=== PATIENT | male | born 1975 | race African-American/Black ===

== ENCOUNTER 2024-03-24 07:58 | Emergency (ER) | payer MEDICARE, SELFPAY ==
--- NOTE | ~2024-03-24 | XR_ITS ---
XR knee LT min 4V Ordering provider: Jo Ann Robles MD History: . SWELLING HX OF EFFUSION, SURG 20 YRS AGO . Comparison: None. FINDINGS: BONES: No acute fracture or dislocation. Postoperative changes seen in the fibula. JOINT SPACES: Narrowing of the lateral compartment. SOFT TISSUES: Normal. IMPRESSION: No acute osseous abnormality left knee. Severe osteoarthritic changes. Reviewed, dictated and finalized at location A.
--- NOTE | ~2024-03-24 | CT_ITS ---
CT lumbar spine w con Ordering provider: Edwar Xiao APRN History: 49 years Male with . low back pain, questionable hx of epidural abscess . Comparison: None. Technique: CT lumbar spine without contrast. Automated exposure control and iterative reconstruction technique were employed. The dose-length product was 181.47 mGy-cm. FINDINGS: VERTEBRAE: Normal height and alignment. No subluxation or visible acute fracture. Degenerative change s of the spine. DISC SPACES: Narrowing of the disc L4-L5 and L5-S1. Multilevel facet joint disease. T12-L1: No stenosis. L1-L2: No stenosis. Mild diffuse disc bulge. L2-L3: No stenosis. Mild diffuse disc bulge. L3-L4: No stenosis. Mild diffuse disc bulge. L4-L5: No stenosis. Mild diffuse disc bulge. Left nerve root compression seen. L5-S1: No stenosis. Mild diffuse disc bulge. Bilateral narrowing of the foramina with nerve root com pression. PARASPINOUS SOFT TISSUES: Mild atheromatous disease of the abdominal aorta. fusion the right sacroiliac joint. IMPRESSION: Multilevel degenerative disc disease. No evidence of epidural abscess seen. If still concerned contrast MRI is advised. Reviewed, dictated and finalized at location A. IMPRESSION: Multilevel degenerative disc disease. No evidence of epidural abscess seen. If still concerned contrast MRI is advise dmitriy
[2024-03-24 08:01] VITALS: BP 136/90; PULSE 92; RESP 16; TEMP 36.8; O2SAT 100
--- NOTE | 2024-03-24 09:05 | ED.EXTPRO ---
HPI - Extremity Problem General Chief complaint: Extremity Problem,Nontraumatic Stated complaint: L KNEE SWELLING Time Seen by Provider: 03/24/24 08:52 History of Present Illness HPI Narrative: 49-year-old male presents to the emergency room for evaluation of multiple medical complaints. Patient has been complaining of atraumatic left knee pain for over 1 month. Patient states that there is fluid on his knee and he is requesting it to be drained. States the knee was drained at an outside emergency room over 1 month ago. Patient is also complaining of a infection in my lower back . Reports having back pain for over 1 year after a fall off of a building.States a Dr. Cooper from [facility] performed an unknown surgery on his lower back, and a sub subsequently had a biopsy of that infection. Patient states both procedures were performed over 1 year ago and cannot provide any more specifics. Patient states his fever is 135/85. Patient denies IV drug use. Denies saddle anesthesia. Denies urological deficits or changes. Denies lower extremity weakness. Related Data Home Medications Medication Instructions Recorded Confirmed albuterol sulfate 90 mcg/actuation 1 puff inhalation Q4H PRN 01/27/20 aerosol inhaler elviteg 150 mg-cob 150 mg-emtricit 1 tablet PO DAILY 01/27/20 200 mg-tenofo disopro 300 mg tablet (Stribild) hydrochlorothiazide 25 mg tablet 25 mg PO DAILY 01/27/20 hydrocodone 5 mg-acetaminophen 325 1 tablet PO Q6H PRN 01/27/20 mg tablet naproxen 500 mg tablet 500 mg PO BID 01/27/20 prednisone 20 mg tablet 20 mg PO BID 01/27/20 ranitidine HCl 150 mg capsule mg PO DAILY 01/27/20 trazodone 50 mg tablet 25 mg PO DAILY 01/27/20 Allergies Allergy/AdvReac Type Severity Reaction Status Date / Time No Known Allergies Allergy Verified 03/24/24 08:05 Review of Systems Review of Systems: ROS unremarkable except for noted in HPI PMFSH Past Medical History Medical History (Updated 03/24/24 @ 10:55 by Edwar Xiao APRN) Acid reflux Anxiety Asthma Back injury Depression History of HIV infection History of hyperlipidemia History of hypertension Right hand pain Surgical History Surgical History History of ear surgery Exam Narrative: GENERAL: Well-appearing, well-nourished, no physical limitations, and in no acute distress. HEAD: Normocephalic, atraumatic. EYES: Conjunctivae normal, PERRLA and EOMI. CHEST: Clear to auscultation. No respiratory distress. No wheezes rales or rhonchi. HEART: Regular rate and rhythm. No murmur heard. Normal peripheral pulses. ABDOMEN: Soft, nontender, nondistended, normal active bowel sounds. BACK: No cervical/thoracic/lumbar tenderness, step-offs, bony abnormality; FROM. no erythema. EXTREMITIES: Normal range of motion. No edema. No clubbing or cyanosis. Left knee: no edema or effusion. Full range of motion. No joint laxity. No bony tenderness. Neuromuscular is intact distally SKIN: Warm, dry, no rash. No noted wounds NEURO: No focal deficits. Alert and oriented x3. MAEW. CN's II-XI intact bilaterally, normal gait PSYCH: Cooperative. Normal mood and affect. Course Vital Signs Vital signs: Vital Signs Temperature 36.8 C 03/24/24 08:01 Pulse Rate 92 03/24/24 08:01 Respiratory Rate 16 03/24/24 08:01 Blood Pressure 136/90 03/24/24 08:01 Pulse Oximetry 100 03/24/24 08:01 Oxygen Delivery Room Air 03/24/24 08:01 Temperature 36.8 C 03/24/24 08:01 Pulse Rate 80 03/24/24 09:33 Respiratory Rate 15 03/24/24 09:33 Blood Pressure 123/84 03/24/24 09:33 Pulse Oximetry 100 03/24/24 09:33 Oxygen Delivery Room Air 03/24/24 08:01 MDM - Extremity (Nontraumatic) MDM Narrative Medical decision making narrative: 49-year-old male presents to the emergency room for evaluation of multiple medical complaints. Patient had com
[2024-03-24] MEDS: SODIUM CHLORIDE 0.9% IV 1,000 ML 999 ML IV CONT (09:30)
[2024-03-24] MEDS: KETOROLAC 30 MG/ML VIAL (*BKC) IV PUSH (09:31)
[2024-03-24 09:33] VITALS: BP 123/84; PULSE 80; RESP 15; O2SAT 100
[2024-03-24 09:41] LABS: Basophils Percent Auto 0.4 % (0.2-1.2); Eosinophils Absolute Auto 0.1 K/mm3 (0-0.3); Eosinophils Percent Auto 2.7 % (0-4.4); Hematocrit 36.5 % (42.0-52.0); Hemoglobin 11.4 g/dL (14.0-18.0); Immature Granulocyte Absolute 0.03 K/mm3 (0.00-0.031); Immature Granulocyte Percent A 0.7 % (0-0.5); Lymphocytes Absolute Auto 1.18 K/mm3 (0.9-3.2); Lymphocytes Percent Auto 26.5 % (18.3-44.2); Mean Corpuscular HGB Conc 31.2 g/dl (32-36); Mean Corpuscular Hemoglobin 24.5 pg (26-34); Mean Corpuscular Volume 78.3 fl (80-100); Monocytes Absolute Auto 0.6 K/mm3 (0.1-0.6); Monocytes Percent Auto 14.1 % (2.6-8.5); Neutrophils Absolute Auto 2.5 K/mm3 (1.3-6.7); Neutrophils Percent Auto 55.6 % (45.5-73.1); Platelet Count Result 268 k/mm3 (150-375); Red Blood Count 4.66 M/mm3 (4.6-6.20); Red Cell Distribution Width 16.7 % (11.5-14.5); White Blood Count 4.5 K/mm3 (4.5-10.0)
[2024-03-24 09:42] LABS: Lactic Acid Reflex 1.2 mmol/L (0.7-2.0)
[2024-03-24 09:43] LABS: Alanine Aminotransferase 76 U/L (6-50); Alkaline Phosphatase 88 U/L (38-126); Anion Gap 6 mmol/L (4-12); Aspartate Amino Transferase 55 U/L (17-59); Bilirubin,Total 0.3 mg/dL (0.2-1.3); Blood Urea Nitrogen 10 mg/dL (9-20); Calcium 9.1 mg/dL (8.4-10.2); Carbon Dioxide 24 mmol/L (22-30); Chloride 105 mmol/L (98-107); Estimated CRCL calculation 96 ml/min; Estimated Glomerular Filt Rate > 60; Glucose 88 mg/dL (65-110); Potassium 4.5 mmol/L (3.4-5.0); Sodium 135 mmol/L (137-145)
[2024-03-24 10:13] LABS: Estimated CRCL calculation 96 ml/min; Estimated Glomerular Filt Rate > 60
[2024-03-24 10:53] VITALS: BP 118/89; PULSE 81; RESP 16; O2SAT 100
--- NOTE | 2024-03-24 11:42 | PC.NURSE ---
Called [facility] for a ride for pt.
== END 2024-03-24 11:16 | disposition home or self-care (01) ==
PROVIDERS: Emergency Provider Nurse Practitioner Family
DX: M25.562 Pain in left knee (principal); M54.50 Low back pain, unspecified; J45.909 Unspecified asthma, uncomplicated; E78.5 Hyperlipidemia, unspecified; K21.9 Gastro-esophageal reflux disease without esophagitis; Z21 Asymptomatic human immunodeficiency virus [HIV] infection status; Z79.899 Other long term (current) drug therapy; M51.36 Other intervertebral disc degeneration, lumbar region
CPT/HCPCS: 36415; 72132; 73564; 80053; 83605; 85025; 96361; 96374; 99284; J1885; J7030; Q9967

== ENCOUNTER 2024-11-18 08:44 | Emergency (ER) | payer MEDICARE, SELFPAY ==
--- NOTE | ~2024-11-18 | CT_ITS ---
CLINICAL INDICATION: Right flank pain COMPARISON: None. TECHNIQUE: Multiple contiguous axial images of the abdomen and pelvis were performed without the admi nistration of intravenous contrast The dose-length product (DLP) was 266.34 mGy-cm. Automated exposure control and iterative reconstruction technique were employed. FINDINGS/OBSERVATIONS: Visualized lower thorax: The bilateral lung bases are clear. The heart is of normal size, without pericardial effusion. Small hiatal hernia is present. Liver: The liver demonstrates homogeneous attenuation and is not enlarged. Gallbladder and biliary system: The gallbladder is only minimally distended, and otherwise unremarkable. Pancreas: Limited evaluation of the pancreas secondary to the lack of intravenous contrast. Spleen: The spleen demonstrates homogeneous attenuation and is not enlarged. Kidneys: The bilateral kidneys are unremarkable, without hydronephrosis or renal calculi. Adrenal glands: Unremarkable. Gastrointestinal tract: Retained gastric contents within the stomach Significant fecal stasis within the colon. Appendix: The air-filled appendix is of normal caliber (coronal series, images 50 through 56). Vasculature: Unremarkable. Lymph nodes: Limited evaluation without intravenous contrast. Pelvic structures: The bladder is decompressed and demonstrates markedly thickened pride for which cystitis is suspected . The prostate gland is not enlarged. Body wall and musculoskeletal: Trace degenerative disease within the lower thoracic or lumbosacral spine, primarily at the level of L5/S1. IMPRESSION: Significant fecal stasis within the colon. No obstructive uropathy. Normal appendix. Reviewed, dictated and finalized at location A.
[2024-11-18 08:53] VITALS: BP 113/94; PULSE 98; RESP 18; TEMP 36.3; O2SAT 100
--- OUTSIDE RECORDS SUMMARY | 2024-11-18 09:03 | XMS_ITS | Clinical Summary ---
Author Organization 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 Name Role Phone Unavailable Primary Care Provider Unavailabl e Social History Tobacco Use Types Packs/Day Years Used Date Smoking Tobacco: Never Assessed Sex and Gender Information Value Date Recorded Sex Assigned at Not on file Legal Sex Male 4:45 PM CDT Gender Identity Not on file Sexual Orientation Not on file Plan of Treatment Health Maintenance Due Date Last Done Comments Colorectal Cancer Screening Colonoscopy (10 Years) 1973 Annual Physical 01/02/1976 Hepatitis C 1991 DTaP, Tdap and Td Vaccines ( 1 - Tdap) 01/02/1992 Hepatitis B Vaccines (1 of 3 - 19+ 3-dose series) 01/02/1992 Zoster Vaccines (1 of 2) 2023 COVID-19 Vaccine (1 - 2023-2 5 season) 2024 Meningococcal B Vaccine Aged Out No l onger eligible based on patient's age to complete this topic Meningococcal Vaccine Aged Out No luis sukhi eligible based on patient's age to complete this topic Pneumococcal Vaccine: Pediat rics (0 to 5 Years) and At-Risk Patients (6 to 49 Years) Aged Out No longer eligible b ased on patient's age to complete this topic RSV Immunizations Under 20 Months Aged Out No longer eligible based on patient's age to complete this topic
--- OUTSIDE RECORDS SUMMARY | 2024-11-18 09:03 | XMS_ITS ---
Author Organization Formerly [facility] Address [address] [place] [address] Care Team Providers Care Information Systems Planner Name Role Phone Yue Solis Primary Care Provider [phone] Winter Kwan Unavailable [phone] Allergies Allergen (clinical drug ingredient) Drug/Non Drug Allergy documented on EMR Reaction Allergy Type Onset Date Status No Known Drug Allergy Unknown Drug Allergy Active No Known Food Allergy Unknown Drug Allergy Active Results Component Value Reference Range Notes 12 Panel Urine Drug Screen Reviewed date:11/12/2024 04:00:17 PM Interpretation: Performing Lab: Notes/Report: THC Pos HENRIQUE Neg MOP (OPI) Neg AMP Neg MET Neg BAR Neg BZO Neg MDMA Neg MTD Neg OXY Neg PCP Neg BUP Neg REASON FOR VISIT new patient Medications Medication SIG (Take, Route, Frequency, Duration) Notes Start Date End Date Status [place] Carbonate 300 MG 1 capsule Orall y Twice a day for 30 days Active Stribild [phone] MG 1 tablet Orally Once a day for 30 days Active Lidocaine 5 % 1 patch remove after 12 hours Externally Once a day for 30 days As needed BACK PAIN 03/23/2024 Active Losartan Potassium 50 MG 1 tablet Orally Once a day for 30 days Active amLODIPine Besylate 5 MG 1 tablet Orally Once a day for 30 days Active ARIPiprazole 5 MG 1 tablet Orally once daily in the evening for 30 days 11/11/2024 Activ e Vivitrol 380 MG as directed Intramus cular every 28 days for 28 days 11/12/2024 Active QUEtiapine Fumarate 50 MG 0.5-1 tablet o nce daily at bedtime as needed for sleep Orally for 30 days 11/11/2024 Active Social History Tobacco Use: Social History Observation Description Date Details (start date - stop date) Current Smoker NA - NA Sex Assigned At : Social History Observation Description Sex Assigned At Male PRAPARE Question Answer Notes Date Completed/Updated: 11/06/2024 What is your current housing situation? I have h ousing Are you worried about losing your housing? Yes What is the highest level of school that you have finished? Less than a high school degree What is your current work situation? Unemployed and seeking work In the past year, have you o r any family members you live with been unable to get any of the following when it was really needed? Check all that apply I do not have problems meeting my needs Has lack of transportation k ept you from medical appointments, meetings, work or from getting things needed for daily living? No How often do you see or talk to people that you care about and feel close to? (For example: talking to friends on the phone, visiting friends or family, going to mandaeism or club meetings) More than 5 times a week How stressed are you? Stress is when someone feels tense, nervous, anxious, or can\t sleep at night because their mind is troubled Somewhat In the past year have you sp ent more than 2 nights in a row in a fci, retirement, assisted center, or juvenile correctional facility? No Are you a refugee? I choose not to answer this q uestion What country are you from? I choose not to answe r this question Do you feel physically and e motionally safe where you currently live? Yes In the past year, have you b een afraid of your partner or ex-partner? No PRAPARE Score: 9 Tobacco Control (Standard) Question Answer Notes Tobacco use: Current smoker Section Notes: --trauma hx--ex- attempt ed to cut his throat Problems Problem Type SNOMED Code ICD Code Onset Dates Problem Status W/U Status Risk Notes Problem Tobacco user (745294532) Nicotine dependence with current use (F17.200) Active confirmed Vital Signs Weight 160.2 lbs 11/12/2024 Height 72 in 11/12/2024 BMI 21.72 kg/m2 11/12/2024 Blood pressure systolic 126 mm Hg 11/13/19 25 Blood pressure diastolic 82 mm Hg 025 Heart Rate 85 /min 11/12/2024 Oximetry 99 % 11/12/2024 Temperature 98.1 degrees Fahrenheit 11/13/19 25 Respiratory Rate 16 /min 11/12/2024 Encounters Encounter Location Date Provider Diagnosis [facility] [address] [place] [address] 11/12/2024 Lisguillermo Polancosadi Alcohol use disorder F10.99 and Nicotine dependence with current use F17.200 Assessments Encounter Date Diagnosis (ICD Code) Assessment Notes Treatment Notes Treatment Clinical Notes Section Notes 11/12/2024 Alcohol use disorder (ICD-10 - F10.99) 11/12/2024 Nicotine dependence with current use (ICD-10 - F17.200) 11/12/2024 Other Discussed medication side effects, adverse effects, risks, benefits, as well as interactions. Encouraged non-use of alcohol. Has Vivitrol alert bracelet, necklace, and wallet card. Recommended participation in recovery groups and/or counseling services. May contact office with questions or concerns. Plan Of Treatment Medication Medication Name Sig Start Date Stop Date Notes Vivitrol 380 MG as directed Intramus cular every 28 days for 28 days 11/12/2024 Treatment Notes Assessment Notes Other Discussed medication side effects, adverse effects, risks, benefits, as well as interactions. Encouraged non-use of alcohol. Has Vivitrol alert bracelet, necklace, and wallet card. Recommended participation in recovery groups and/or counseling services. May contact office with questions or concerns. Next Appt Details Follow Up: 4 Weeks, Reason: MAR f/u Provider Name:Ryan Hitchcock, 11/19/2024 09:40:00 AM, [address], [place], [address], Medications Administered Medication Instructions Date of Administration Dosage Notes Vivitrol 11/12/2024 380 mg Debi Reddy 11/12/2024 03:05 PM CDT >Given IM Lt Gluteus, tolerated well. [facility]# [id number]. 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 Was hospitalized Y es. D epression Screening: PHQ-9 L ittle interest or pleasure in doing things?Not at all F eeling down, depressed, or hopeless N ot at all T rouble falling or staying asleep, or sleeping too much N early every day F eeling tired or having little energy M ore than half the days P oor appetite or overeating N ot at all F eeling bad about yourself or that you are a failure, or have let yourself or your family down M ore than half the days T rouble concentrating on things, such as reading the newspaper or watching television M ore than half the days M oving or speaking so slowly that other people could have noticed; or the opposite, being so fidgety or restless that you have been moving around a lot more than usual M ore than half the days T houghts that you would be better off or of hurting yourself in some way N ot at all T otal Score 1 1 I nterpretation M oderate Depression S creening: [place] Suicide Severity Rating Scale (LF) D o you want to initiate with S creener form 1 . Wish to be : Have you wished you were or wished you could go to sleep and not wake up? N o 2 . Suicidal Thoughts: Have you actually had any thoughts of killing yourself? N o 6 . Suicide Behavior Question: Have you ever done anything,started to do anything, or prepared to end your life? N o I nterpretation: L ow Risk P reventative Health and Wellness follow-up: . D epression Screening PHQ9: c/o PHQ-2 (2015 Edition). PHQ9 D epression Screening Finding P ositive F ollow-up Depression W arm hand-off to staff C SSRS Interpretation and Follow Up Plan: CSSRS Interpretation and Follow Up Plan C SSRS Screen documented using SF Y es R isk Disposition from SF L ow - No Follow Up Plan Required F ollow Up Plan N o Follow Up Plan required at this time. T imeframe of Screening Leni JACKSON Initial Assessment: Mr. Trotter presents for [facility] services for treatment of AUD. Currenlt admitted to the MRU. Reports drinking unknown amounts of beer and liquor daily with last drink on 11/02/2024, and reports experiencing cravings since this date. Has received 1 injection of Vivitrol in 2020 and reports medication helpful in decreasing cravings and would like to restart. Substance use history S ubstance Use History, drugs of choice: A lcohol Addiction Treatment History P rior Medications for SHERIFF treatment N altrexone/Revia T herapy/counseling and Recovery support (peers/groups) N o history of therapy/counseling or engagement with recovery support peer/groups. Therapy/counseling and recovery support discussed and encouraged. Referrals placed. History of Infectious Diseases H istory of viral hepatitis N o H istory of HIV N o H istory of TB N o H istory of other infectious diseases N o History of IV drug use and related infections H istory of injection drug use? N o Acute Trauma A cute Trauma N o Psychiatric History H istory of psychiatric diagnoses? Y es (specify) H as a psychiatric provider? Y es. See notes. C onsent obtained for psychiatric provider if outside of [place]? N o. Patient sees [place] psychiatric provider. Primary Care H as a primary care provider? Y es. See notes for provider. L ast primary care visit: 1 -3 years ago. D [facility] authorization obtained? N o. Patient sees [place] primary care provider. Assessment and history specific to females F emale/Female at ? N o Hepatitis A and B vaccination status V accination status Hep A D enies vaccination to Hep A. Vaccination encouraged and resources offered. V accination status, Hep B R eports vaccination for Hep B Housing Stability and Employment I s housing stable/safe? Y es C urrently employed? U nemployed. Support System: H as a support system: Y es (specify): Narcan Access H as Narcan and has been trained on its use??Not applicable. Prescription Drug Monitoring Program P rescription Drug Monitoring Program reviewed? Y es. No concerns identified. * ROS: B asic ROS: Denies W eight loss or gain. D enies C hange in appetite. I nsomnia D enies. D enies S uicidal Thoughts. * Medical History: * Surgical History: L eft leg Right leg, george * Hospitalization/Major Diagno stic Procedure: Kip karstenbjorn- Right leg, george 08/2022 * Family History: F ather: , Liver. M other: alive, healthy. 1 brother(s) , 2 sister(s) - healthy. . * Social History: P rimary Social History: L iving Arrangement L iving Arrangement: I ndependent Living I s this a supportive environment? Y es Alcohol Use A lcohol Use Frequency: W eekly or Daily T ype of alcohol consumed L iquor Q uanity consumed on those occasions 3 or more glasses patient states he drinks over a fifth of tequila daily, Last drank 03/13/2024 Illicit Substance Usage I llicit Substance Usage: Y es S ubstance Used: C ocaine F requency Cocaine is used: p atient states he would use cocaine whenever he could get any. Date of last use 01/05/2021 I nterested in quitting: Y es Employment Status E mployment Status: U nemployed Tobacco Use - do not use T obacco Use: 1.5 packs daily,.? Single Question Alcohol Screening H ow may times in the past year have you had (4 for women, or 5 for men) or more drinks in a day? 9 0 S ocial Determinants: P JETHRO Avilez ate Completed/Updated: 0 11/06/2024 W hat is your current housing situation? I have housing A re you worried about losing your housing??Yes W hat is the highest level of school that you have finished? L ess than a high school degree W hat is your current work situation? U nemployed and seeking work I n the past year, have you or any family members you live with been unable to get any of the following when it was really needed? Check all that apply I do not have problems meeting my needs H as lack of transportation kept you from medical appointments, meetings, work or from getting things needed for daily living? N o H ow often do you see or talk to people that you care about and feel close to? (For example: talking to friends on the phone, visiting friends or family, going to mandaeism or club meetings) M ore than 5 times a week H ow stressed are you? Stress is when someone feels tense, nervous, anxious, or can\t sleep at night because their mind is troubled S omewhat I n the past year have you spent more than 2 nights in a row in a fci, retirement, assisted center, or juvenile correctional facility? N o A re you a refugee? I choose not to answer this question W hat country are you from? I choose not to answer this question D o you feel physically and emotionally safe where you currently live? Y es I n the past year, have you been afraid of your partner or ex-partner? N o P RAPARE Score: 9 T obacco Use: T obacco Control (Standard) T obacco use: C urrent smoker M iscellaneous: M ethod of learning P referred method of learning: R eading - -trauma hx--ex- attempted to cut his throat. * Medications: T akingamLODIPine Besylate 5 MG Tablet 1 tablet Orally Once a day Losartan Potassium 50 MG Tablet 1 tablet Orally Once a day Stribild [phone] MG Tablet 1 tablet Orally Once a day [place] Carbonate 300 MG Capsule 1 capsule Orally Twice a day Lidocaine 5 % Patch 1 patch remove after 12 hours Externally Once a day As needed BACK PAINQUEtiapine Fumarate 50 MG Tablet 0.5-1 tablet once daily at bedtime as needed for sleep Orally ARIPiprazole 5 MG Tablet 1 tablet Orally once daily in the evening Medication List reviewed and reconciled with the patientTaking amLODIPine Besylate 5 MG Tablet 1 tablet Orally Once a day Taking Losartan Potassium 50 MG Tablet 1 tablet Orally Once a day Taking Stribild [phone] MG Tablet 1 tablet Orally Once a day Taking [place] Carbonate 300 MG Capsule 1 capsule Orally Twice a day Taking Lidocaine 5 % Patch 1 patch remove after 12 hours Externally Once a day As needed BACK PAINTaking QUEtiapine Fumarate 50 MG Tablet 0.5-1 tablet once daily at bedtime as needed for sleep Orally Taking ARIPiprazole 5 MG Tablet 1 tablet Orally once daily in the evening Medication List reviewed and reconciled with the patient * Allergies: N o Known Drug AllergyNo Known Food Allergyno[Allergies Verified] Objective: * Vitals: I nitials: TT, Wt:160.2, Ht: 72, BMI:21.72, BP:126/82, HR:85, Oxygen sat %:99, Temp:98.1, RR:16, Pain scale:0. * Examination: A CELESTE Physical Assessment: Intoxication and Withdrawal signs I ntoxication signs N o signs of intoxication are present during examination. W ithdrawal Signs N o withdrawal signs are present during examination. . G eneral Examination: GENERAL APPEARANCE: i n no acute distress. HEART: r egular rate and rhythm. LUNGS: r espirations regular and easy. PSYCH: a lert, oriented x4, speech clear, good eye contact, full range of affect/positive mood, thought process logical, goal directed. Assessment: * Assessment: 1. A lcohol use disorder - F10.99 (Primary) 2 . N icotine dependence with current use - F17.200 Plan: * Treatment: Value Reference Range T HC Pos * C OC Neg * M OP (OPI) Neg * A MP Neg * M ET Neg * B AR Neg * B ZO Neg * M DMA Neg * M TD Neg * O XY Neg * P CP Neg * B UP Neg * This lab was reviewed by Farzad Loomis on 11/12/2024 at 16:00 PM CDT 2.?Others? Notes: Discussed medication side effects, adverse effects, risks, benefits, as well as interactions. Encouraged non-use of alcohol. Has Vivitrol alert bracelet, necklace, and wallet card. Recommended participation in recovery groups and/or counseling services. May contact office with questions or concerns.?? * Recommended Wellness and Pre vention Guidelines: * S tatus A lert L ast Done N ext Due A ction Taken N ONCOMPLIANT A lcohol use screening - 0 11/12/2024 - N ONCOMPLIANT C holesterol screen (genl pop) - 0 11/12/2024 - N ONCOMPLIANT C olorectal cancer screening - 0 11/12/2024 - N ONCOMPLIANT D epression followup 0 11/12/2024 0 11/12/2024 - N ONCOMPLIANT H IV viral load and CD4 testing - 0 11/12/2024 - * Therapeutic Injections: Vivitrol : 380 mg (Dose No:1) (Route: Intramuscular) given by SAMANTHA Meredith on left gluteus (Alcohol use disorder) * Procedure Codes: 9 9000 SPECIMEN [id number] [facility] VISIT ESTABLISHED [id number] THER/PROPH/DIAG INJ, SC/IM * Preventive Medicine: Counseling: S MOKING: Patient counselled on the dangers of tobacco use and urged to quit. . * Follow Up: 4 Weeks (Reason: OCT f/u) * * Sign off status: Completed true * Provider: Darien Kwan, MSN, REED MAN, MUTUEL DEPARTMENT MANAGER-C Date: 0 11/12/2024 Generated for Leon londono/Maribel/eTransmitting on: 0 11/18/2024 09:03 AM CDT History and Physical Notes * HPI (History of Present Illness) Category Sub-Category Detail Notes Category Not es Interim History Was hospitalized Yes Emergency room visit Yes Depression Screening PHQ9 PHQ9 Depression Screening Finding: Positive Follow-up Depression: Warm hand-off to B H staff Depression Screening PHQ-9 Little inte rest or pleasure in doing things: Not at all Feeling down, depressed, or hopeless: No t at all Trouble falling or staying asleep, or sl eeping too much: Nearly every day Feeling tired or having little energy: M ore than half the days Poor appetite or overeating: Not at all Feeling bad about yourself o r that you are a failure, or have let yourself or your family down: More than half the days Trouble concentrating on thi ngs, such as reading the newspaper or watching television: More than half the days Moving or speaking so slowly that other people could have noticed; or the opposite, being so fidgety or restless that you have been moving around a lot more than usual: More than half the days Thoughts that you would be b jose f off or of hurting yourself in some way: Not at all Total Score: 11 Interpretation: Moderate Depression Screening [place] Suicide Sev erity Rating Scale (LF) Do you want to initiate with: Screener form 1. Wish to be : Have you wished you were or wished you could go to sleep and not wake up?: No 2. Suicidal Thoughts: Have you actually had any thoughts of killing yourself?: No 6. Suicide Behavior Question: Have you ever done anything,started to do anything, or prepared to end your life?: No Interpretation:: Low Risk MAR Initial Assessment History of Infect ious Diseases History of viral hepatitis: No History of HIV: No History of TB: No History of other infectious diseases: No Acute Trauma Acute Trauma: No History of IV drug use and r elated infections History of injection drug use?: No Psychiatric History History of psychiatr ic diagnoses?: Yes (specify) Has a psychiatric provider?: Yes. See notes. Consent obtained for psychiatric provider if outside of [place]?: No. Patient sees [place] psychiatric provider. Substance use history Substance Use History, nacho gs of choice:: Alcohol Addiction Treatment History Prior Medica tions for SHERIFF treatment: Naltrexone/Revia Therapy/counseling and Recov yovani support (peers/groups): No history of therapy/counseling or engagement with recovery support peer/groups. Therapy/counseling and recovery support discussed and encouraged. Referrals placed. Primary Care Has a primary care provider?: Ye s. See notes for provider. Last primary care visit:: 1-3 years ago. Disclosure authorization obtained?: No. Patient sees [place] primary care provider. Assessment and history speci fic to females Female/Female at ?: No Hepatitis A and B vaccination status Vac cination status Hep A: Denies vaccination to Hep A. Vaccination encouraged and resources offered. Vaccination status, Hep B: Reports vacci nation for Hep B Housing Stability and Employment Is housing stab le/safe?: Yes Currently employed?: Unemployed. Support System: Has a support system:: Yes (spec jaci): Narcan Access Has Narcan and has b een trained on its use?: Not applicable. Prescription Drug Monitoring Program Pre scription Drug Monitoring Program reviewed?: Yes. No concerns identified. Preventative Health and Wellness follow-up . CSSRS Interpretation and Follow Up Plan CSSRS Interpretation and Follow Up Plan CSSRS Screen documented using SF: Yes Risk Disposition from SF: Low - No Follo w Up Plan Required Follow Up Plan: No Follow Up Plan requir ed at this time. Timeframe of Screening: Today Examination Category Sub-Category Detail Notes Category Not es General Examination GENERAL APPEARANCE: in no acute di stress HEART: regular rate and rhy thm LUNGS: respirations regular and easy PSYCH: alert, oriented x4, speech clear, good eye contact, full range of affect/positive mood, thought process logical, goal directed ASAM Physical Assessment Intoxication an d Withdrawal signs Intoxication signs: No signs of intoxication are present during examination. . Withdrawal Signs: No withdrawal signs ar e present during examination.
--- OUTSIDE RECORDS SUMMARY | 2024-11-18 09:04 | XMS_ITS | Clinical Summary ---
Author Organization [facility] Address [address] [place] [address] Care Team Providers Care Paradichlorobenzene Tender Name Role Phone Unavailable Primary Care Provider Unavailabl e Source Comments [facility],non-owned Affiliates and Associated Physician Practices is amultiple site organization consisting of ambulatory clinics and hospital sitesin [place], [place], [place] and [place]. This disclosure is being madepursuant to the Care Everywhere program and may not contain all information available regarding this patient. Last updated 18.[facility] Allergies No known active allergies Medications * Be aware that medications may not be up to date on this document. Alwaysverify current medications with the patient. acetaminophen (TYLENOL) 500 MG capsule Take 2 (two) capsules by mouth every 6 hours as needed for Fever or Pain 30 capsule 2 Active naproxen (NAPROSYN) 500 MG tablet Take 1 (one) tablet by mouth 2 times daily 30 tablet 2 Active oxyCODONE (OXY-IR) 5 MG capsule Take 1 (one) capsule by mouth every 6 hours as needed (For breakthrough pain that is not controlled by Tylenol) 15 capsule 2 Active Active Problems No known active problems Social History Tobacco Use Types Packs/Day Years Used Date Smoking Tobacco: Every Day Smokeless Tobacco: Never Tobacco Cessation:Ready to Q uit: No; Counseling Given: No Alcohol Use Standard Drinks/Week Comments Yes 0 (1 standard drink = 0.6 oz pur e alcohol) fifth daily AUDIT-C Answer Date Recorded Q1: How often do you have a drink containing alc ohol? 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 Gender Identity Not on file Sexual Orientation Not on file Last Filed Vital Signs Vital Sign Reading Time Taken Comments Blood Pressure 138/90 03/21/2022 4:37 AM CDT Pulse 72 03/21/2022 4:37 AM CDT Temperature 36.7 C (98 F) 03/21/2022 4:37 AM CDT Respiratory Rate 14 03/21/2022 4:37 AM CDT Oxygen Saturation 98% 03/21/2022 4:37 AM CDT Inhaled Oxygen Concentration - - Weight 56.7 kg (125 lb) 03/20/2022 5:29 PM CDT Height 185.4 cm (6' 1 ) 03/20/2022 5:29 PM CDT Body Mass Index 16.49 03/20/2022 5:29 PM CDT Plan of Treatment Health Maintenance Due Date Last Done Comments COLOGUARD (AGES 45-75) - COLON CA SCREENING 1973 COLON MONITORING 1973 COLONOSCOPY - COLON CA SCREENING 1973 CT COLONOGRAPHY - COLON CA SCREENING 1973 Colorectal Cancer Screening 1973 FIT - COLON CA SCREENING 1973 FLEX SIG - COLON CA SCREENING 1973 LIPID TESTING 1973 HIV SCREENING 01/02/1988 HEPATITIS C SCREENING 12/28/1990 DTAP/TDAP/TD VACCINES (1 - Tdap) 01/02/1992 HEPATITIS B VACCINE (1 of 3 - 19+ 3-dose series) 01/02/1992 PNEUMOCOCCAL VACCINE 50+ (1 of 2 - PCV) 01/02/1992 ZOSTER VACCINE (1 of 2) 2023 COVID-19 VACCINE (2 - season) 2024 01/12/2021 DEPRESSION SCREENING 08/05/2024 MEDICARE AWV CALENDAR YEAR 2024 INFLUENZA VACCINE (Season Ended) 2025 07/14/2019, 05/03/2017, 06/12/2016, Additional history exists HIB VACCINE Aged Out No longer eligi ble based on patient's age to complete this topic HPV VACCINE Aged Out No longer eligi ble based on patient's age to complete this topic MENINGOCOCCAL (Group B) VACCINE SHARED DECISION-MAKING Aged Out No longer eligible based on patient's age to complete this topic MENINGOCOCCAL GROUPS A/C/Y/W VACCINE Aged Out No longer eligible based on patient's age to complete this topic Insurance [facility]IC[facility] MEDIC[facility] ADV [id number] [place] [id number]
--- OUTSIDE RECORDS SUMMARY | 2024-11-18 09:04 | XMS_ITS | CONTINUITY OF CARE DOCUMENT ---
Author Name yury cotton Address Unknown Organization [facility] Address [address] [place] [address] Phone [phone] Care Team Providers Care Precision Instrument Maker Name Role Phone Tiffani Swna MD Unavailable KHADAR GUADALUPE MD Unavailable KHADAR GUADALUPE MD Unavailable [phone] INSURANCE PROVIDERS Payer name Policy type / Coverage type [employer] red green party ID [employer] MEDICARE GOLD ADVANTAGE HMO Medicare [id number]
--- OUTSIDE RECORDS SUMMARY | 2024-11-18 09:04 | XMS_ITS | Clinical Summary ---
Author Organization [facility] Address [address] [place] [address] Care Team Providers Care Film Printer Name Role Phone Nelly Hernandez MD Primary Care Provide r Allergies No known active allergies Medications acetaminophen (TYLENOL) 325 mg tablet Take 2 tablets (650 mg total) by mouth every 6 (six) hours as needed for pain Active albuterol HFA (PROVENTIL HFA,VENTOLIN HFA,PROAIR HFA) 90 mcg/actuation inhaler Inhale 2 puffs every 6 (six) hours as needed for wheezing Active hydroCHLOROthiazi de (HYDRODIURIL) 25 mg tablet Take 1 tablet (25 mg total) by mouth daily Active folic acid (FOLVITE) 1 mg tablet Take 1 tablet (1 mg total) by mouth daily Active cyclobenzaprine (FLEXERIL) 10 mg tablet Take 1 tablet (10 mg total) by mouth 2 (two) times a day as needed for muscle spasms Active bpkvdgk-zvq-csljl -tenofo DISOP (STRIBILD) [phone] mg tablet Take 1 tablet by mouth daily Active ondansetron ODT (ZOFRAN-ODT) 4 mg disintegrating tablet Take 1 tablet (4 mg total) by mouth every 8 (eight) hours as needed for nausea or vomiting Active lidocaine (LIDODERM) 5 % Place 2 patches on the skin daily as needed for pain for 12 hours Remove & discard patch within 12 hours or as directed by . 14 patch 11/07/19 25 Active losartan (COZAAR) 50 mg tablet Take 1 tablet (50 mg total) by mouth daily 30 tablet 1 11/08/19 25 2025 Active LORazepam (ATIVAN) 1 mg tabletIndications :Alcohol Withdrawal Assessment Scale score Take 1 tablet (1 mg total) by mouth every 8 (eight) hours as needed (withdrawal) for up to 3 days 10 tablet 11/08/19 25 Active famotidine (PEPCID) 40 mg tablet Take 1 tablet (40 mg total) by mouth daily 2024 Discontinued(T herapy completed) cyclobenzaprine (FLEXERIL) 10 mg tablet Take 1 tablet (10 mg total) by mouth 2 (two) times a day as needed for muscle spasms for up to 14 days 20 tablet 09/28/19 23 2024 Discontinued(A lternate therapy) xssgsnm-dsd-netao -tenofo DISOP (STRIBILD) [phone] mg tabletIndications :HIV infection Take 1 tablet by mouth daily with breakfast 90 tablet 02/15/20 23 2024 Discontinued(D uplicate order) amLODIPine (NORVASC) 5 mg tablet Take 1 tablet (5 mg total) by mouth daily 2024 Discontinued(S top Taking at Discharge) LORazepam (ATIVAN) 0.5 mg tabletIndications :Alcohol Withdrawal Syndrome Take 1 tablet (0.5 mg total) by mouth 3 (three) times a day as needed for anxiety for up to 7 days 10 tablet 08/14/19 24 2024 Discontinued(T herapy completed) pantoprazole DR (PROTONIX) 40 mg EC tabletIndications :Treatment of Non-Bleeding Gastric Disorder Take 1 tablet (40 mg total) by mouth daily 30 tablet 08/14/19 24 2024 Discontinued(T herapy completed) nicotine (NICODERM CQ) [address] 1 patch on the skin daily for 14 days 14 patch 08/14/19 24 2024 Discontinued(T herapy completed) levoFLOXacin (LEVAQUIN) 500 mg tablet Take 1 tablet (500 mg total) by mouth daily 10 tablet 01/04/20 24 2024 Discontinued(T herapy completed) diclofenac sodium (VOLTAREN) 1 % gel Apply 2 g topically 4 (four) times a day 50 g 01/04/20 24 2024 Discontinued(T herapy completed) cyclobenzaprine (FLEXERIL) 10 mg tablet Take 1 tablet (10 mg total) by mouth 2 (two) times a day as needed for muscle spasms 20 tablet 04/05/20 24 2024 Discontinued(D uplicate order) traMADoL (ULTRAM) 50 mg tablet Take 1 tablet (50 mg total) by mouth every 6 (six) hours 12 tablet 04/05/20 24 2024 Discontinued(T herapy completed) LORazepam (ATIVAN) 1 mg tabletIndications :Alcohol Withdrawal Assessment Scale score Take 1 tablet (1 mg total) by mouth every 8 (eight) hours as needed (withdrawal) for up to 3 days 10 tablet 11/07/19 25 2024 Discontinued Active Problems Problem Noted Date Diagnosed Date Uncontrolled hypertension 11/04/2024 Cocaine abuse 11/03/2024 Fall at home 11/03/2024 Spondylosis 11/03/2024 Alcohol withdrawal syndrome without complication 11/02/2024 Acute gastritis without hemorrhage 08/14/2023 Tobacco abuse 08/14/2023 Discitis of lumbar region 08/13/2023 Moderate malnutrition 08/13/2023 Nausea and vomiting 08/13/2023 HFrEF (heart failure with reduced ejection fract ion) 09/13/2022 Osteomyelitis 09/13/2022 Positive QuantiFERON-TB Gold test 09/12/2022 Assessment & Plan (09/12/2022 6:59 AM FINANCIAL DATA ANALYST): -concern for extrapulmonary infections including diskitis -follow ID consult recommendations -AFB stain with no acid-fast bacilli noted, CT chest within normal limits Polysubstance abuse 09/12/2022 Overview (09/12/2022): -monitor cows score -screen for withdrawals Discitis, unspecified spinal region 09/11/2022 Assessment & Plan (09/12/2022 6:58 AM FINANCIAL DATA ANALYST): -s/p bone/disc biopsy by IR for follow up, awaiting pathology report pod# day 3 -monitor vitals -follow routine culture and g stain, AFB stain and culture results -patient will need outpatient IV antibiotic therapy as there is concern for IV drug use and patient can not be sent home with IV in place -patient is afebrile, resolved neutropenia with WBC 6.9 from 3.6, currently on cefepime and vancomycin day 2 -pain control with [place] -start LR 125 cc/hour for 8 hours HIV (human immunodeficiency virus infection) Assessment & Plan (09/12/2022 6:58 AM FINANCIAL DATA ANALYST): ID consult recommendations -viral load 9390 CD4 count 329 Prior HAART verified by ID Service, we will resume stribild regimen Primary hypertension 08/31/2022 Anxiety with depression 08/31/2022 Spondylodiscitis 08/31/2022 Inflammatory spondylopathy of lumbosacral region 08/31/2022 Myositis 08/31/2022 Abscess of paraspinal muscles 08/31/2022 Chronic midline low back pain without sciatica 0 08/30/2022 Resolved Problems Problem Noted Date Diagnosed Date Resolved Date Acute low back pain without sciatica 08/31/2022 08/31/2022 Encounters Date Type Department Care Team Description 11/02/2024 7:59 AM CDT - 11/06/2024 9:30 AM [place] [address] Darin Dailey MD [place], Gwen Trammell MD Alcohol withdrawal syndrome without complication (HCC) (Primary Dx); Cocaine abuse (HCC); Fall in home, initial encounter; Spondylosis; Uncontrolled hypertension Discharge Disposition: Discharge to not defined facility from Last 3 Months Immunizations Immunization Administration Dates Next Due Hep A, Unspecified 07/01/2009 Influenza, Quadrivalent, Spl it, Intramuscular 07/14/2019,05/03/2017,05/02/2015 Influenza, Quadrivalent, Spl it, Preservative Free, Intradermal 06/12/2016 Influenza, Quadrivalent, Spl it, Preservative Free, Intramuscular 08/14/2023,09/14/2022 Influenza, Trivalent, IM (MDV) 05/17/2014 Influenza, Unspecified 06/04/2013,05/26/2012, Pneumococcal Conjugate PCV 13 07/14/2019 Pneumococcal Polysaccharide PPV23 09/12/2016,,05/08/2006 Td, adsorbed 11/28/2010 Tdap 06/12/2016 Surgical History Surgery Date Site/Laterality Comments US GUIDED ASPIRATION ABSCESS HEMATOMA CYST SOFT TISSUE 08/31/2022 N/A Medical History Medical History Date Comments Smoking 1/2 pack a day or less Hypertension Social History Tobacco Use Types Packs/Day Years Used Date Smoking Tobacco: Every Day Cigarettes Tobacco Cessation:Ready to Q uit: Not Asked; Counseling Given: Not Answered Alcohol Use Standard Drinks/Week Comments Yes 6 (1 standard drink = 0.6 oz pur e alcohol) [facility] Utilities Answer Date Recorded In the past 12 months has th e electric, gas, oil, or water company threatened to shut off services in your home? Yes 11/03/2024 Social Connection and Isolat ion Panel [NHANES] Answer Date Recorded In a typical week, how many times do you talk on the phone with family, friends, or neighbors? More than three times a week 11/03/2024 How often do you get togethe r with friends or relatives? More than three times a week 11/03/2024 How often do you attend chur ch or druze services? Never 11/03/2024 Do you belong to any clubs o r organizations such as episcopalian groups, unions, fraternal or athletic groups, or school groups? No 11/03/2024 How often do you attend meet ings of the clubs or organizations you belong to? Never 11/03/2024 Are you , , di vorced, , never , or living with a partner? Never 11/03/2024 Overall Financial Resource Strain (CARDIA) Answe r Date Recorded How hard is it for you to pa y for the very basics like food, housing, medical care, and heating? Somewhat hard 11/03/2024 Hunger Vital Sign Answer Date Recorded Within the past 12 months, y ou worried that your food would run out before you got the money to buy more. Sometimes true Within the past 12 months, t he food you bought just didn't last and you didn't have money to get more. Sometimes true 08/2024 PRAPARE - Transportation Answer Date Re corded In the past 12 months, has l ack of transportation kept you from medical appointments or from getting medications? No 040 08/2024 In the past 12 months, has l ack of transportation kept you from meetings, work, or from getting things needed for daily living? No 11/03/2024 Housing Stability Vital Sign Answer David e Recorded In the last 12 months, was t here a time when you were not able to pay the mortgage or rent on time? No 08/14/2023 In the last 12 months, how many places have you lived? 1 08/14/2023 In the last 12 months, was t here a time when you did not have a steady place to sleep or slept in a detention (including now)? No 08/14/2023 Housing Stability Vital Sign Answer David e Recorded In the last 12 months, was t here a time when you were not able to pay the mortgage or rent on time? No 11/03/2024 In the past 12 months, how m any times have you moved where you were living? 0 11/03/2024 At any time in the past 12 m [facility], were you homeless or living in a detention (including now)? No 11/03/2024 Personal Safety Answer Date Recorded Have you ever been in or are you currently in a harmful physical or emotional relationship or is someone making you feel afraid or unsafe? Denies 11/02/2024 Sex and Gender Information Value Date Recorded Sex Assigned at Not on file Legal Sex Male 9:42 AM FINANCIAL DATA ANALYST Gender Identity Not on file Sexual Orientation Not on file Obstetrics History Last Filed Vital Signs Vital Sign Reading Time Taken Comments Blood Pressure 110/92 11/06/2024 8:01 AM CDT Pulse 97 11/06/2024 8:01 AM CDT Temperature 37 C (98.6 F) 11/06/2024 8:01 AM CDT Respiratory Rate 18 11/06/2024 8:01 AM CDT Oxygen Saturation 100% 11/06/2024 8:01 AM CDT Inhaled Oxygen Concentration - - Weight 65.3 kg (143 lb 14.4 oz) 11/02/2024 3:09 PM CDT Height 185.4 cm (6' 1 ) 11/02/2024 3:09 PM CDT Body Mass Index 18.99 11/02/2024 3:09 PM CDT Plan of Treatment Health Maintenance Due Date Last Done Comments Colon Cancer Screening-Colonoscopy 1973 Depression Screening 1973 HLA B 5701 Typing 1973 Prostate Cancer Screening-PSA 1973 HIV+ Chlamydia and Gonorrhea Screening (Rectal) 01/02/1984 HIV+ Chlamydia and Gonorrhea Screening (Throat) 1986 G6PD 1991 Hepatitis B Screening 1991 Regular Well Visit/Exam 18-64 1991 Hepatitis A Vaccines (1 of 2 - Risk 2-dose series) 01/02/1992 07/01/2009 Hepatitis B Vaccines (1 of 3 - 19+ 3-dose series) 01/02/1992 Zoster Vaccine (1 of 2) 01/02/1992 Covid-19 Vaccine (3 - Mixed Product risk series) 02/09/2021 01/12/2021, 01/12/2021 Osteoporosis Screening-Bone Density Scan 2023 Hemoglobin A1C 08/31/2023 08/31/2022 Hepatitis A Screening 08/31/2023 08/31/2022, 009 T Spot (quantiferon gold) 08/31/2023 08/31/2022 RPR Screening 02/15/2024 02/14/2023 Pneumococcal vaccine <65 (4 of 4 - PCV20 or PCV21) 07/14/2024 07/14/2019, 09/12/2016, 11/28/2010, Additional history exists Lipid Panel 08/13/2024 08/13/2023, 08/31/2022 HIV + Chlamydia and Gonorrhe a Screening (Urine) 01/03/2025 01/04/2024 Proteinuria screening Urinalysis (UA) 01/03/2025 01/04/2024, 01/04/2024, 08/13/2023, Additional history exists Influenza Vaccine (Season Ended) 2025 08/14/2023, 09/14/2022, 07/14/2019, Additional history exists Hepatitis C Screening 11/02/2025 11/02/2024, 023 DTaP/Tdap/Td Vaccine (2 - Td or Tdap) 06/12/2026 06/12/2016, 11/28/2010 Procedures Procedure Name Priority Date/Time Associated Diagnosis Comments EGFR Routine 11/06/2024 5:27 AM CDT DIFFERENTIAL AUTO Routine 11/06/2024 5:2 7 AM CDT CBC WITH AUTO DIFFERENTIAL Routine 11/06/2024 5:27 AM CDT HEPATIC FUNCTION PANEL Routine 11/06/2024 5:27 AM CDT BASIC METABOLIC PANEL Routine 11/06/2024 5:27 AM CDT EGFR Routine 11/05/2024 10:38 AM CDT CREATININE Routine 11/05/2024 10:38 AM CDT EGFR Routine 11/05/2024 3:03 AM CDT DIFFERENTIAL AUTO Routine 11/05/2024 3:0 3 AM CDT CBC WITH AUTO DIFFERENTIAL Routine 11/05/2024 3:03 AM CDT HEPATIC FUNCTION PANEL Routine 11/05/2024 3:03 AM CDT BASIC METABOLIC PANEL Routine 11/05/2024 3:03 AM CDT EGFR Routine 11/04/2024 4:14 AM CDT DIFFERENTIAL AUTO Routine 11/04/2024 4:1 4 AM CDT FOLATE Routine 11/04/2024 4:14 AM CDT CBC WITH AUTO DIFFERENTIAL Routine 11/04/2024 4:14 AM CDT HEPATIC FUNCTION PANEL Routine 11/04/2024 4:14 AM CDT BASIC METABOLIC PANEL Routine 11/04/2024 4:14 AM CDT XR CHEST 1 VIEW ED Urgent/IP Urgent 11/03/2024 12:45 PM CDT IRON PROFILE W/ IBC Routine 11/03/2024 3 :08 AM CDT VITAMIN B12 Routine 11/03/2024 3:08 AM CDT MAGNESIUM Routine 11/03/2024 3:08 AM CDT PHOSPHORUS Routine 11/03/2024 3:08 AM CDT FERRITIN Routine 11/03/2024 3:08 AM CDT EGFR Routine 11/03/2024 3:08 AM CDT DIFFERENTIAL AUTO Routine 11/03/2024 3:0 8 AM CDT CBC WITH AUTO DIFFERENTIAL Routine 11/03/2024 3:08 AM CDT HEPATIC FUNCTION PANEL Routine 11/03/2024 3:08 AM CDT BASIC METABOLIC PANEL Routine 11/03/2024 3:08 AM CDT HEPATITIS C ANTIBODY Routine 11/02/2024 4:27 PM CDT EGFR STAT 11/02/2024 9:48 AM CDT DIFFERENTIAL AUTO STAT 11/02/2024 9:4 8 AM CDT ETHANOL STAT 11/02/2024 9:48 AM CDT COMPREHENSIVE METABOLIC PANEL STAT 11/02/2024 9:48 AM CDT CBC WITH AUTO DIFFERENTIAL STAT 11/02/2024 9:[address] FACIAL BONES WO CONTRAST ED 11/02/2024 8:[address] LUMBAR SPINE WO CONTRAST ED 11/02/2024 8:[address] CERVICAL SPINE WO CONTRAST ED 11/02/2024 8:[address] HEAD WO CONTRAST ED 11/02/2024 8 :22 AM CDT URINALYSIS AND REFLEX TO MICROSCOPIC AND CULTURE STAT 01/04/2024 7:22 AM CDT LIPID PANEL Routine 08/13/2023 5:23 AM FINANCIAL DATA ANALYST RPR STAT 02/14/2023 5:08 AM CDT TB TEST, QUANTIFERON GOLD Routine 08/31/2022 3:10 PM FINANCIAL DATA ANALYST HEMOGLOBIN A1C Routine 08/31/2022 9:01 AM FINANCIAL DATA ANALYST HEPATITIS PANEL, ACUTE Routine 08/31/2022 9:01 AM FINANCIAL DATA ANALYST from Last 3 Months or Most Recently Relevant to Health Maintenance Results * eGFR (11/06/2024 5:27 AM CDT) eGFR 89 >=60 mL/min/1. 73 m2 Comment: Interpretive Data Reference Interval Normal >/= 90 mL/min/1.73m2 Mildly decreased* 60 - 89 mL/min/1.73m2 Mildly to moderately decreased 45 - 59 mL/min/1.73m2 Moderately to severely decreased 30 - 44 mL/min/1.73m2 Severely decreased 15 - 29 mL/min/1.73m2 Kidney Failure < 15 mL/min/1.73m2 *Relative to young adult level Estimated glomerular filtration rate is determined by the 2020 CKD-EPI equation recommended by the National Kidney Foundation (A Unifying Approach to GFR Estimation: Recommendations of the NKF-ASK Task Force on Reassessing the Inclusion of Race in Diagnosing Kidney Disease, JASN 202). The CKD-EPI equation should not be used for patients with unstable renal function and has not been validated in children and those over 70. Current interpretive data was last reviewed 2021. Blood 11/06/2024 5:27 AM CDT 11/06/2024 6:04 AM CDT Yovani Zeng NP LAB BLOOD ORDERABLES Final Re sult [facility] [address] [facility] Department [place] [address] * (ABNORMAL) Differential, auto (11/06/2024 5:27 AM CDT) Neutrophil abs 7.25(H) 1.50 - 6.50 K/cumm Imm gran abs 0.04 0.00 - 0.10 K/cumm [facility] Lymphocyte abs 0.99 0.80 - 3.30 K/cumm [facility] Monocyte abs 0.89(H) 0.20 - 0.80 K/cumm [facility] Eosinophil abs 0.05 0.00 - 0.50 K/cumm [facility] Basophil abs 0.01 0.00 - 0.10 K/cumm [facility] Neutrophil pct 78.7 % [facility] Comment: Interpretive Data Percent cell count reference ranges are not reported, since discordance with absolute values may lead to misinterpretation of CBC data. Current Interpretive Data was last revised on 2017. Imm gran pct 0.4 % [facility] Comment: Interpretive Data Percent cell count reference ranges are not reported, since discordance with absolute values may lead to misinterpretation of CBC data. Current Interpretive Data was last revised on 2017. Lymphocyte pct 10.7 % [facility] Comment: Interpretive Data Percent cell count reference ranges are not reported, since discordance with absolute values may lead to misinterpretation of CBC data. Current Interpretive Data was last revised on 2017. Monocyte pct 9.6 % [facility] Comment: Interpretive Data Percent cell count reference ranges are not reported, since discordance with absolute values may lead to misinterpretation of CBC data. Current Interpretive Data was last revised on 2017. Eosinophil pct 0.5 % [facility] Comment: Interpretive Data Percent cell count reference ranges are not reported, since discordance with absolute values may lead to misinterpretation of CBC data. Current Interpretive Data was last revised on 2017. Basophil pct 0.1 % [facility] Comment: Interpretive Data Percent cell count reference ranges are not reported, since discordance with absolute values may lead to misinterpretation of CBC data. Current Interpretive Data was last revised on 2017. Blood 11/06/2024 5:27 AM CDT 11/06/2024 6:01 AM CDT [facility] LAB BLOOD ORDERABLES Final Re sult Performing Organization Address [facility] Co de Phone Number [facility] [address] [place] [address] * (ABNORMAL) CBC with auto differential (11/06/2024 5:27 AM CDT) WBC 9.23 3.80 - 9.90 K/cumm Hgb 13.7 13.0 - 17.5 g/dL [facility] Hct 41.8 38.9 - 50.3 % [facility] Plt 316 150 - 400 K/cumm [facility] MPV 9.3 9.1 - 12.3 fL [facility] RBC 5.33 4.30 - 5.80 M/cumm [facility] MCV 78.4(L) 81.3 - 96.4 fL [facility] MCH 25.7(L) 27.1 - 33.3 pg [facility] MCHC 32.8 32.3 - 35.7 g/dL [facility] RDW CV 16.1(H) 11.1 - 14.9 % [facility] RDW SD 45.1 35.7 - 48.1 fL [facility] NRBC abs 0.00 0.00 - 0.01 K/cumm [facility] Blood 11/06/2024 5:27 AM CDT 11/06/2024 6:01 AM CDT [facility] LAB BLOOD ORDERABLES Final Re sult Performing Organization Address City/[facility] Co de Phone Number [facility] [address] [place] [address] * Hepatic function panel (11/06/2024 5:27 AM CDT) [facility] Bilirubin, total 0.3 0.1 - 1.2 mg/dL Bilirubin, direct 0.2 0.1 - 0.3 mg/dL [facility] Protein, pl 7.8 6.5 - 8.5 g/dL [facility] Albumin 3.9 3.5 - 5.0 g/dL [facility] Alk phos 128 40 - 130 Units/L [facility] ALT 24 7 - 55 Units/L [facility] AST 36 10 - 50 Units/L [facility] Blood 11/06/2024 5:27 AM CDT 11/06/2024 6:04 AM CDT Yovani Zeng NP LAB BLOOD ORDERABLES Final Re sult [facility] [address] [facility] [place] [address] * (ABNORMAL) Basic metabolic panel (11/06/2024 5:27 AM CDT) [facility] Sodium 133(L) 135 - 145 mmol/L Potassium, pl 4.3 3.3 - 4.9 mmol/L [facility] Chloride 95(L) 97 - 110 mmol/L [facility] CO2 27 22 - 32 mmol/L [facility] Anion gap 11 2 - 15 mmol/L [facility] BUN 15 6 - 25 mg/dL [facility] Creatinine 1.02 0.80 - 1.30 mg/dL [facility] Glucose 69(L) 70 - 199 mg/dL [facility] Comment: Interpretive Data Fasting glucose >/= 126 mg/dl is diagnostic for diabetes. Fasting is defined as no caloric intake for at least 8 hours. Fasting glucose between 100 mg/dl to 125 mg/dl is diagnostic of prediabetes. In a patient with classic symptoms of hyperglycemia or hyperglycemic crisis, a random glucose >/= 200 mg/dl is diagnostic for diabetes. In the absence of unequivocal hyperglycemia, results should be confirmed by repeat testing. The classification and Diagnosis of Diabetes Diabetes Care 2022; 46: S19-S40. Current interpretive data was last revised 2022. Calcium 9.7 8.5 - 10.3 mg/dL [facility] Blood 11/06/2024 5:27 AM CDT 11/06/2024 6:04 AM CDT Yovani Zeng NP LAB BLOOD ORDERABLES Final Re sult Performing Organization Address City/[facility]/ZIP Co de Phone Number [id number] [place] [address] * eGFR (11/05/2024 10:38 AM CDT) eGFR 85 >=60 mL/min/1. 73 m2 Comment: Interpretive Data Reference Interval Normal >/= 90 mL/min/1.73m2 Mildly decreased* 60 - 89 mL/min/1.73m2 Mildly to moderately decreased 45 - 59 mL/min/1.73m2 Moderately to severely decreased 30 - 44 mL/min/1.73m2 Severely decreased 15 - 29 mL/min/1.73m2 Kidney Failure < 15 mL/min/1.73m2 *Relative to young adult level Estimated glomerular filtration rate is determined by the 2020 CKD-EPI equation recommended by the National Kidney Foundation (A Unifying Approach to GFR Estimation: Recommendations of the NKF-ASK Task Force on Reassessing the Inclusion of Race in Diagnosing Kidney Disease, JASN 202). The CKD-EPI equation should not be used for patients with unstable renal function and has not been validated in children and those over 70. Current interpretive data was last reviewed 2021. Blood 11/05/2024 10:3 8 AM CDT 11/05/2024 10:56 AM CDT Gwen Lau MD LAB BLOOD ORDERABLES Elena l Result Performing Organization Address City/[facility]/ZIP Co de Phone Number [id number] [place] [employer] [place] [address] * Creatinine (11/05/2024 10:38 AM CDT) Creatinine 1.06 0.80 - 1.30 mg/dL Blood 11/05/2024 10:3 8 AM CDT 11/05/2024 10:56 AM CDT Gwen Valeri Lau MD LAB BLOOD ORDERABLES Elena l Result [facility] [address] [place] [address] * eGFR (11/05/2024 3:03 AM CDT) [facility] eGFR 66 >=60 mL/min/1. 73 m2 Comment: Interpretive Data Reference Interval Normal >/= 90 mL/min/1.73m2 Mildly decreased* 60 - 89 mL/min/1.73m2 Mildly to moderately decreased 45 - 59 mL/min/1.73m2 Moderately to severely decreased 30 - 44 mL/min/1.73m2 Severely decreased 15 - 29 mL/min/1.73m2 Kidney Failure < 15 mL/min/1.73m2 *Relative to young adult level Estimated glomerular filtration rate is determined by the 2020 CKD-EPI equation recommended by the National Kidney Foundation (A Unifying Approach to GFR Estimation: Recommendations of the NKF-ASK Task Force on Reassessing the Inclusion of Race in Diagnosing Kidney Disease, JASN 2020). The CKD-EPI equation should not be used for patients with unstable renal function and has not been validated in children and those over 70. Current interpretive data was last reviewed 2021. Blood 11/05/2024 3:03 AM CDT 11/05/2024 3:09 AM CDT us Yovani Zeng NP LAB BLOOD ORDERABLES Final Re sult [facility] [address] [place] [address] * Differential, auto (11/05/2024 3:03 AM CDT) Pathologist [facility] Neutrophil abs 3.24 1.50 - 6.50 K/cumm Imm gran abs 0.04 0.00 - 0.10 K/cumm [facility] Lymphocyte abs 1.48 0.80 - 3.30 K/cumm [facility] Monocyte abs 0.60 0.20 - 0.80 K/cumm [facility] Eosinophil abs 0.09 0.00 - 0.50 K/cumm [facility] Basophil abs 0.01 0.00 - 0.10 K/cumm [facility] Neutrophil pct 59.4 % [facility] Comment: Interpretive Data Percent cell count reference ranges are not reported, since discordance with absolute values may lead to misinterpretation of CBC data. Current Interpretive Data was last revised on 2017. Imm gran pct 0.7 % [facility] Comment: Interpretive Data Percent cell count reference ranges are not reported, since discordance with absolute values may lead to misinterpretation of CBC data. Current Interpretive Data was last revised on 2017. Lymphocyte pct 27.1 % [facility] Comment: Interpretive Data Percent cell count reference ranges are not reported, since discordance with absolute values may lead to misinterpretation of CBC data. Current Interpretive Data was last revised on 2017. Monocyte pct 11.0 % [facility] Comment: Interpretive Data Percent cell count reference ranges are not reported, since discordance with absolute values may lead to misinterpretation of CBC data. Current Interpretive Data was last revised on 2017. Eosinophil pct 1.6 % [facility] Comment: Interpretive Data Percent cell count reference ranges are not reported, since discordance with absolute values may lead to misinterpretation of CBC data. Current Interpretive Data was last revised on 2017. Basophil pct 0.2 % [facility] Comment: Interpretive Data Percent cell count reference ranges are not reported, since discordance with absolute values may lead to misinterpretation of CBC data. Current Interpretive Data was last revised on 2017. Blood 11/05/2024 3:03 AM CDT 11/05/2024 3:09 AM CDT us Yovani Zeng NP LAB BLOOD ORDERABLES Final Re sult [place] [address] Department [place] [address] * (ABNORMAL) CBC with auto differential (11/05/2024 3:03 AM CDT) [facility] WBC 5.46 3.80 - 9.90 K/cumm Hgb 13.6 13.0 - 17.5 g/dL [facility] Hct 40.8 38.9 - 50.3 % [facility] Plt 310 150 - 400 K/cumm [facility] MPV 8.9(L) 9.1 - 12.3 fL [facility] RBC 5.29 4.30 - 5.80 M/cumm [facility] MCV 77.1(L) 81.3 - 96.4 fL [facility] MCH 25.7(L) 27.1 - 33.3 pg [facility] MCHC 33.3 32.3 - 35.7 g/dL [facility] RDW CV 15.9(H) 11.1 - 14.9 % [facility] RDW SD 43.7 35.7 - 48.1 fL [facility] NRBC abs 0.00 0.00 - 0.01 K/cumm [facility] Blood 11/05/2024 3:03 AM CDT 11/05/2024 3:09 AM CDT Yovani Zeng NP LAB BLOOD ORDERABLES Final Re sult [facility] [address] Department [place] [address] * (ABNORMAL) Hepatic function panel (11/05/2024 3:03 AM CDT) [facility] Bilirubin, total 0.2 0.1 - 1.2 mg/dL Bilirubin, direct 0.1 0.1 - 0.3 mg/dL [facility] Protein, pl 7.0 6.5 - 8.5 g/dL [facility] Albumin 3.6 3.5 - 5.0 g/dL [facility] Alk phos 141(H) 40 - 130 Units/L [facility] ALT 22 7 - 55 Units/L [facility] AST 40 10 - 50 Units/L [facility] Blood 11/05/2024 3:03 AM CDT 11/05/2024 3:09 AM CDT Yovani Zeng NP LAB BLOOD ORDERABLES Final Re sult [place] [address] Department [place] [address] * (ABNORMAL) Basic metabolic panel (11/05/2024 3:03 AM CDT) [facility] Sodium 134(L) 135 - 145 mmol/L Potassium, pl 4.1 3.3 - 4.9 mmol/L [facility] Chloride 97 97 - 110 mmol/L [facility] CO2 27 22 - 32 mmol/L [facility] Anion gap 10 2 - 15 mmol/L [facility] BUN 16 6 - 25 mg/dL [facility] Creatinine 1.31(H) 0.80 - 1.30 mg/dL [facility] Glucose 85 70 - 199 mg/dL [facility] Comment: Interpretive Data Fasting glucose >/= 126 mg/dl is diagnostic for diabetes. Fasting is defined as no caloric intake for at least 8 hours. Fasting glucose between 100 mg/dl to 125 mg/dl is diagnostic of prediabetes. In a patient with classic symptoms of hyperglycemia or hyperglycemic crisis, a random glucose >/= 200 mg/dl is diagnostic for diabetes. In the absence of unequivocal hyperglycemia, results should be confirmed by repeat testing. The classification and Diagnosis of Diabetes Diabetes Care 2021; 46: S19-S40. Current interpretive data was last revised 2022. Calcium 9.3 8.5 - 10.3 mg/dL [facility] Blood 11/05/2024 3:03 AM CDT 11/05/2024 3:09 AM CDT Yovani Zeng NP LAB BLOOD ORDERABLES Final Re sult [place] [address] Department [place] [address] * eGFR (11/04/2024 4:14 AM CDT) [facility] eGFR >90 >=60 mL/min/1. 73 m2 Comment: Interpretive Data Reference Interval Normal >/= 90 mL/min/1.73m2 Mildly decreased* 60 - 89 mL/min/1.73m2 Mildly to moderately decreased 45 - 59 mL/min/1.73m2 Moderately to severely decreased 30 - 44 mL/min/1.73m2 Severely decreased 15 - 29 mL/min/1.73m2 Kidney Failure < 15 mL/min/1.73m2 *Relative to young adult level Estimated glomerular filtration rate is determined by the 2020 CKD-EPI equation recommended by the National Kidney Foundation (A Unifying Approach to GFR Estimation: Recommendations of the NKF-ASK Task Force on Reassessing the Inclusion of Race in Diagnosing Kidney Disease, JASN 2020). The CKD-EPI equation should not be used for patients with unstable renal function and has not been validated in children and those over 70. Current interpretive data was last reviewed 2021. Blood 11/04/2024 4:14 AM CDT 11/04/2024 4:26 AM CDT us Yovani Zeng NP LAB BLOOD ORDERABLES Final Re sult [facility] [address] Department [place] [address] * Differential, auto (11/04/2024 4:14 AM CDT) Pathologist [facility] Neutrophil abs 2.97 1.50 - 6.50 K/cumm Imm gran abs 0.02 0.00 - 0.10 K/cumm [facility] Lymphocyte abs 1.52 0.80 - 3.30 K/cumm [facility] Monocyte abs 0.61 0.20 - 0.80 K/cumm [facility] Eosinophil abs 0.07 0.00 - 0.50 K/cumm [facility] Basophil abs 0.02 0.00 - 0.10 K/cumm [facility] Neutrophil pct 57.0 % [facility] Comment: Interpretive Data Percent cell count reference ranges are not reported, since discordance with absolute values may lead to misinterpretation of CBC data. Current Interpretive Data was last revised on 2017. Imm gran pct 0.4 % [facility] Comment: Interpretive Data Percent cell count reference ranges are not reported, since discordance with absolute values may lead to misinterpretation of CBC data. Current Interpretive Data was last revised on 2017. Lymphocyte pct 29.2 % [facility] Comment: Interpretive Data Percent cell count reference ranges are not reported, since discordance with absolute values may lead to misinterpretation of CBC data. Current Interpretive Data was last revised on 2017. Monocyte pct 11.7 % [facility] Comment: Interpretive Data Percent cell count reference ranges are not reported, since discordance with absolute values may lead to misinterpretation of CBC data. Current Interpretive Data was last revised on 2017. Eosinophil pct 1.3 % [facility] Comment: Interpretive Data Percent cell count reference ranges are not reported, since discordance with absolute values may lead to misinterpretation of CBC data. Current Interpretive Data was last revised on 2017. Basophil pct 0.4 % [facility] Comment: Interpretive Data Percent cell count reference ranges are not reported, since discordance with absolute values may lead to misinterpretation of CBC data. Current Interpretive Data was last revised on 2017. Blood 11/04/2024 4:14 AM CDT 11/04/2024 4:26 AM CDT us Yovani Zeng NP LAB BLOOD ORDERABLES Final Re sult [facility] [address] Department [place] [address] * (ABNORMAL) CBC with auto differential (11/04/2024 4:14 AM CDT) WBC 5.21 3.80 - 9.90 K/cumm Hgb 13.2 13.0 - 17.5 g/dL [facility] Hct 39.4 38.9 - 50.3 % [facility] Plt 271 150 - 400 K/cumm [facility] MPV 9.2 9.1 - 12.3 fL [facility] RBC 5.13 4.30 - 5.80 M/cumm [facility] MCV 76.8(L) 81.3 - 96.4 fL [facility] MCH 25.7(L) 27.1 - 33.3 pg [facility] MCHC 33.5 32.3 - 35.7 g/dL [facility] RDW CV 15.5(H) 11.1 - 14.9 % [facility] RDW SD 42.6 35.7 - 48.1 fL [facility] NRBC abs 0.00 0.00 - 0.01 K/cumm [facility] Blood 11/04/2024 4:14 AM CDT 11/04/2024 4:26 AM CDT Yovani Zeng NP LAB BLOOD ORDERABLES Final Re sult Performing Organization Address City/[facility]/ZIP Co de Phone Number [address] [place] [address] * Folate (11/04/2024 4:14 AM CDT) Pathologist [facility] Folic acid 6.4 >=5.0 ng/mL Blood 11/04/2024 4:14 AM CDT 11/04/2024 4:26 AM CDT Gwen Lau MD LAB BLOOD ORDERABLES Elena l Result Performing Organization Address City/[facility] Co de Phone Number [address] [place] [employer] [place] [address] * (ABNORMAL) Hepatic function panel (11/04/2024 4:14 AM CDT) Pathologist [facility] Bilirubin, total 0.3 0.1 - 1.2 mg/dL Bilirubin, direct 0.2 0.1 - 0.3 mg/dL [facility] Protein, pl 7.0 6.5 - 8.5 g/dL [facility] Albumin 3.5 3.5 - 5.0 g/dL [facility] Alk phos 137(H) 40 - 130 Units/L [facility] ALT 19 7 - 55 Units/L [facility] AST 33 10 - 50 Units/L [facility] Blood 11/04/2024 4:14 AM CDT 11/04/2024 4:26 AM CDT Yovani Zeng NP LAB BLOOD ORDERABLES Final Re sult Performing Organization Address [facility] Co de Phone Number [place] [address] [place] [employer] [place] [address] * (ABNORMAL) Basic metabolic panel (11/04/2024 4:14 AM CDT) Sodium 132(L) 135 - 145 mmol/L Potassium, pl 4.6 3.3 - 4.9 mmol/L [facility] Comment:Delta - Results Revi ewed Chloride 97 97 - 110 mmol/L [facility] CO2 26 22 - 32 mmol/L [facility] Anion gap 9 2 - 15 mmol/L [facility] BUN 10 6 - 25 mg/dL [facility] Creatinine 0.85 0.80 - 1.30 mg/dL [facility] Glucose 99 70 - 199 mg/dL [facility] Comment: Interpretive Data Fasting glucose >/= 126 mg/dl is diagnostic for diabetes. Fasting is defined as no caloric intake for at least 8 hours. Fasting glucose between 100 mg/dl to 125 mg/dl is diagnostic of prediabetes. In a patient with classic symptoms of hyperglycemia or hyperglycemic crisis, a random glucose >/= 200 mg/dl is diagnostic for diabetes. In the absence of unequivocal hyperglycemia, results should be confirmed by repeat testing. The classification and Diagnosis of Diabetes Diabetes Care 2021; 46: S19-S40. Current interpretive data was last revised 2022. Calcium 9.2 8.5 - 10.3 mg/dL [facility] Blood 11/04/2024 4:14 AM CDT 11/04/2024 4:26 AM CDT Yovani Zeng LAB BLOOD ORDERABLES Final Re sult Performing Organization Address [facility] Co de Phone Number [address] [place] [employer] [place] [address] * XR Chest 1 View (11/03/2024 12:45 PM CDT) Anatomical Region Laterality Modality Body, Chest N/A Computed Radiogr aphy 11/03/2024 12:5 6 PM CDT Narrative 11/03/2024 12:57 PM CDT EXAM DESCRIPTION: XR CHEST 1 VIEW REASON FOR STUDY: cough, H/o Latent Tb-completed treatement x 9 months. 5 day history of cough, non productive, suspected emphysema, long-term smoker Patient to ED yesterday after fall from day prior to arrival, today patient has new cough TECHNIQUE: Single radiographic view of the chest. COMPARISON: 12/05/2012, 08/0709/04/202208/2024 FINDINGS: Suboptimal evaluation due to patient positioning, rotation, and/or technique. Findings made within these confines. LINES/TUBES: None. LUNGS: Right upper lobe calcified pulmonary nodule, likely sequela of previous granulomatous disease. Apical predominant emphysematous changes and scarring. No focal consolidation. No pneumothorax. No pleural effusion. HEART/MEDIASTINUM: Cardiomediastinal contours are within normal limits. BONES/SOFT TISSUES: No acute osseous abnormality. IMPRESSION: No radiographic evidence of an acute cardiopulmonary abnormality. THIS IS AN ELECTRONICALLY VERIFIED FINAL REPORT 11/03/2024 12:57 PM - Electronically signed by Rey MCCLAIN T: Report ID: [id number] Reading Location: [place] [address] Procedure Note Rey Irene MD - 11/03/2024 EXAM DESCRIPTION: XR CHEST 1 VIEW REASON FOR STUDY: cough, H/o Latent Tb-completed treatement x 9 months. 5day history of cough, non productive, suspected emphysema, long-term smoker Patient to ED yesterday after fall from day prior to arrival, today patient has new cough TECHNIQUE: Single radiographic view of the chest. COMPARISON: 12/05/2012, 08/0709/04/202208/2024 FINDINGS: Suboptimal evaluation due to patient positioning, rotation,and/or technique. Findings made within these confines. LINES/TUBES: None. LUNGS: Right upper lobe calcified pulmonary nodule, likely sequela of previous granulomatous disease. Apical predominant emphysematous changesand scarring. No focal consolidation. No pneumothorax. No pleural effusion. HEART/MEDIASTINUM: Cardiomediastinal contours are within normal limits. BONES/SOFT TISSUES: No acute osseous abnormality. IMPRESSION: No radiographic evidence of an acute cardiopulmonaryabnormality. THIS IS AN ELECTRONICALLY VERIFIED FINAL REPORT 11/03/2024 12:57 PM - Electronically signed by Rey Irene M.D. NS T: Report ID: [id number] Reading Location: [place] [address] us Gwen Lau MD IMG XR PROCEDURES Final R esult * eGFR (11/03/2024 3:08 AM CDT) eGFR 87 >=60 mL/min/1. 73 m2 Comment: Interpretive Data Reference Interval Normal >/= 90 mL/min/1.73m2 Mildly decreased* 60 - 89 mL/min/1.73m2 Mildly to moderately decreased 45 - 59 mL/min/1.73m2 Moderately to severely decreased 30 - 44 mL/min/1.73m2 Severely decreased 15 - 29 mL/min/1.73m2 Kidney Failure < 15 mL/min/1.73m2 *Relative to young adult level Estimated glomerular filtration rate is determined by the 2020 CKD-EPI equation recommended by the National Kidney Foundation (A Unifying Approach to GFR Estimation: Recommendations of the NKF-ASK Task Force on Reassessing the Inclusion of Race in Diagnosing Kidney Disease, JASN 2020). The CKD-EPI equation should not be used for patients with unstable renal function and has not been validated in children and those over 70. Current interpretive data was last reviewed 2021. Blood 11/03/2024 3:08 AM CDT 11/03/2024 3:30 AM CDT us Yovani Zeng NP LAB BLOOD ORDERABLES Final [facility] [address] Department [place] [address] * Differential, auto (11/03/2024 3:08 AM CDT) Pathologist [facility] Neutrophil abs 3.6 1.5 - 6.5 K/cumm Imm gran abs 0.0 0.0 - 0.1 K/cumm [facility] Lymphocyte abs 1.7 0.8 - 3.3 K/cumm [facility] Monocyte abs 0.7 0.2 - 0.8 K/cumm [facility] Eosinophil abs 0.1 0.0 - 0.5 K/cumm [facility] Basophil abs 0.0 0.0 - 0.1 K/cumm [facility] Neutrophil pct 59.4 % [facility] Comment: Interpretive Data Percent cell count reference ranges are not reported, since discordance with absolute values may lead to misinterpretation of CBC data. Current Interpretive Data was last revised on 2017. Imm gran pct 0.2 % [facility] Comment: Interpretive Data Percent cell count reference ranges are not reported, since discordance with absolute values may lead to misinterpretation of CBC data. Current Interpretive Data was last revised on 2017. Lymphocyte pct 27.4 % [facility] Comment: Interpretive Data Percent cell count reference ranges are not reported, since discordance with absolute values may lead to misinterpretation of CBC data. Current Interpretive Data was last revised on 2017. Monocyte pct 11.6 % [facility] Comment: Interpretive Data Percent cell count reference ranges are not reported, since discordance with absolute values may lead to misinterpretation of CBC data. Current Interpretive Data was last revised on 2017. Eosinophil pct 1.2 % [facility] Comment: Interpretive Data Percent cell count reference ranges are not reported, since discordance with absolute values may lead to misinterpretation of CBC data. Current Interpretive Data was last revised on 2017. Basophil pct 0.2 % [facility] Comment: Interpretive Data Percent cell count reference ranges are not reported, since discordance with absolute values may lead to misinterpretation of CBC data. Current Interpretive Data was last revised on 2017. Blood 11/03/2024 3:08 AM CDT 11/03/2024 3:29 AM CDT Yovani Zeng NP LAB BLOOD ORDERABLES Final Re sult Performing Organization Address [facility] Co de Phone Number [address] [place] [address] * (ABNORMAL) Iron profile w/ IBC (11/03/2024 3:08 AM CDT) [facility] Iron 101 50 - 150 mcg/dL TIBC 180(L) 250 - 400 mcg/dL [facility] Transferrin saturation 56(H) 20 - 50 % [facility] Blood 11/03/2024 3:08 AM CDT 11/03/2024 3:30 AM CDT Gwen Valeri Lau MD LAB BLOOD ORDERABLES Elena l Result Performing Organization Address [facility] Co de Phone Number [address] [address] * (ABNORMAL) CBC with auto differential (11/03/2024 3:08 AM CDT) [facility] WBC 6.1 3.8 - 9.9 K/cumm Hgb 11.6(L) 13.0 - 17.5 g/dL [facility] Hct 35.3(L) 38.9 - 50.3 % [facility] Plt 249 150 - 400 K/cumm [facility] MPV 9.2 9.1 - 12.3 fL [facility] RBC 4.51 4.30 - 5.80 M/cumm [facility] MCV 78.3(L) 81.3 - 96.4 fL [facility] MCH 25.7(L) 27.1 - 33.3 pg [facility] MCHC 32.9 32.3 - 35.7 g/dL [facility] RDW CV 15.9(H) 11.1 - 14.9 % [facility] RDW SD 44.7 35.7 - 48.1 fL [facility] NRBC abs 0.00 0.00 - 0.01 K/cumm [facility] Blood 11/03/2024 3:08 AM CDT 11/03/2024 3:29 AM CDT Yovani Zeng NP LAB BLOOD ORDERABLES Final Re sult [address] [place] [employer] [place] [address] * Phosphorus (11/03/2024 3:08 AM CDT) Phosphorus, pl 4.3 2.3 - 4.5 mg/dL Blood 11/03/2024 3:08 AM CDT 11/03/2024 3:30 AM CDT Gwen Lau MD LAB BLOOD ORDERABLES Elena l Result Performing Organization Address City/[facility]/ZIP Co de Phone Number [address] [place] [employer] [place] [address] * Magnesium (11/03/2024 3:08 AM CDT) Magnesium 1.9 1.4 - 2.5 mg/dL Blood 11/03/2024 3:08 AM CDT 11/03/2024 3:30 AM CDT Gwen Lau MD LAB BLOOD ORDERABLES Elena l Result Performing Organization Address City/[facility]/ZIP Co de Phone Number [address] [place] [employer] [place] [address] * (ABNORMAL) Ferritin (11/03/2024 3:08 AM CDT) Ferritin 481(H) 30 - 400 ng/mL Blood 11/03/2024 3:08 AM CDT 11/03/2024 3:30 AM CDT Gwen Lau MD LAB BLOOD ORDERABLES Elena l Result Performing Organization Address City/[facility]/ZIP Co de Phone Number [address] [place] [employer] [place] [address] * Vitamin B12 (11/03/2024 3:08 AM CDT) [facility] Vitamin B12 370 230 - 1,250 pg/mL Blood 11/03/2024 3:08 AM CDT 11/03/2024 3:30 AM CDT Gwen Valeri Lau MD LAB BLOOD ORDERABLES Elena l Result Performing Organization Address [facility] de Phone Number [address] [place] [address] * (ABNORMAL) Hepatic function panel (11/03/2024 3:08 AM CDT) [facility] Bilirubin, total 0.6 0.1 - 1.2 mg/dL Bilirubin, direct 0.3 0.1 - 0.3 mg/dL [facility] Protein, pl 6.3(L) 6.5 - 8.5 g/dL [facility] Albumin 3.2(L) 3.5 - 5.0 g/dL [facility] Alk phos 135(H) 40 - 130 Units/L [facility] ALT 21 7 - 55 Units/L [facility] AST 40 10 - 50 Units/L [facility] Blood 11/03/2024 3:08 AM CDT 11/03/2024 3:30 AM CDT Yovani Zeng NP LAB BLOOD ORDERABLES Final Re sult Performing Organization Address [facility] Co de Phone Number [address] [place] [address] * (ABNORMAL) Basic metabolic panel (11/03/2024 3:08 AM CDT) [facility] Sodium 134(L) 135 - 145 mmol/L Potassium, pl 3.1(L) 3.3 - 4.9 mmol/L [facility] Chloride 96(L) 97 - 110 mmol/L [facility] CO2 29 22 - 32 mmol/L [facility] Anion gap 9 2 - 15 mmol/L [facility] BUN 6 6 - 25 mg/dL [facility] Creatinine 1.04 0.80 - 1.30 mg/dL [facility] Glucose 110 70 - 199 mg/dL [facility] Comment: Interpretive Data Fasting glucose >/= 126 mg/dl is diagnostic for diabetes. Fasting is defined as no caloric intake for at least 8 hours. Fasting glucose between 100 mg/dl to 125 mg/dl is diagnostic of prediabetes. In a patient with classic symptoms of hyperglycemia or hyperglycemic crisis, a random glucose >/= 200 mg/dl is diagnostic for diabetes. In the absence of unequivocal hyperglycemia, results should be confirmed by repeat testing. The classification and Diagnosis of Diabetes Diabetes Care 2021; 46: S19-S40. Current interpretive data was last revised 2022. Calcium 8.8 8.5 - 10.3 mg/dL [facility] Blood 11/03/2024 3:08 AM CDT 11/03/2024 3:30 AM CDT Yovani Zeng LAB BLOOD ORDERABLES Final Re sult [facility] [address] Department [place] [address] * Hepatitis C antibody Blood (11/02/2024 4:27 PM CDT) Hep C Ab Nonreactive Nonreactive Comment: Antibodies to HCV not detected. Does NOT exclude the possibility of recent exposure to HCV. Current interpretive data was last revised on 22 Interpretive Data Nonreactive: Antibodies to HCV not detected. Does NOT exclude the possibility of recent exposure to HCV. Equivocal: Equivocal for HCV antibodies. Supplemental molecular testing will be automatically performed to determine infection status in accordance with current CDC screening recommendations. Reactive: Positive for HCV antibodies. This may represent current or past HCV infection. Supplemental molecular testing will be automatically performed to determine current infection status in accordance with current CDC screening recommendations. Interpretive data was last revised on 2019. Blood 11/02/2024 4:27 PM CDT 11/02/2024 5:02 PM CDT Yovani Zeng NP LAB MICROBIOLOGY - GENERAL OR DERABLES Final Result Performing Organization Address [facility]/ZIP Co de Phone Number [place] [address] [place] [address] * eGFR (11/02/2024 9:48 AM CDT) Pathologist [facility] eGFR >90 >=60 mL/min/1. 73 m2 Comment: Interpretive Data Reference Interval Normal >/= 90 mL/min/1.73m2 Mildly decreased* 60 - 89 mL/min/1.73m2 Mildly to moderately decreased 45 - 59 mL/min/1.73m2 Moderately to severely decreased 30 - 44 mL/min/1.73m2 Severely decreased 15 - 29 mL/min/1.73m2 Kidney Failure < 15 mL/min/1.73m2 *Relative to young adult level Estimated glomerular filtration rate is determined by the 2020 CKD-EPI equation recommended by the National Kidney Foundation (A Unifying Approach to GFR Estimation: Recommendations of the NKF-ASK Task Force on Reassessing the Inclusion of Race in Diagnosing Kidney Disease, JASN 2020). The CKD-EPI equation should not be used for patients with unstable renal function and has not been validated in children and those over 70. Current interpretive data was last reviewed 2021. Blood 11/02/2024 9:48 AM CDT 11/02/2024 9:59 AM CDT Yana SIMMONS LAB BLOOD ORDERABLES Final Re sult Performing Organization Address City/[facility] Co de Phone Number [place] [address] Department [place] [address] * Differential, auto (11/02/2024 9:48 AM CDT) Pathologist [facility] Neutrophil abs 4.6 1.5 - 6.5 K/cumm Imm gran abs 0.0 0.0 - 0.1 K/cumm [facility] Lymphocyte abs 1.4 0.8 - 3.3 K/cumm [facility] Monocyte abs 0.8 0.2 - 0.8 K/cumm [facility] Eosinophil abs 0.0 0.0 - 0.5 K/cumm [facility] Basophil abs 0.0 0.0 - 0.1 K/cumm [facility] Neutrophil pct 67.5 % [facility] Comment: Interpretive Data Percent cell count reference ranges are not reported, since discordance with absolute values may lead to misinterpretation of CBC data. Current Interpretive Data was last revised on 2017. Imm gran pct 0.4 % [facility] Comment: Interpretive Data Percent cell count reference ranges are not reported, since discordance with absolute values may lead to misinterpretation of CBC data. Current Interpretive Data was last revised on 2017. Lymphocyte pct 20.1 % [facility] Comment: Interpretive Data Percent cell count reference ranges are not reported, since discordance with absolute values may lead to misinterpretation of CBC data. Current Interpretive Data was last revised on 2017. Monocyte pct 11.5 % [facility] Comment: Interpretive Data Percent cell count reference ranges are not reported, since discordance with absolute values may lead to misinterpretation of CBC data. Current Interpretive Data was last revised on 2017. Eosinophil pct 0.4 % [facility] Comment: Interpretive Data Percent cell count reference ranges are not reported, since discordance with absolute values may lead to misinterpretation of CBC data. Current Interpretive Data was last revised on 2017. Basophil pct 0.1 % [facility] Comment: Interpretive Data Percent cell count reference ranges are not reported, since discordance with absolute values may lead to misinterpretation of CBC data. Current Interpretive Data was last revised on 2017. Blood 11/02/2024 9:48 AM CDT 11/02/2024 9:59 AM CDT us Yana SIMMONS LAB BLOOD ORDERABLES Final Re sult [facility] [address] Department [place] [address] * (ABNORMAL) CBC with auto differential (11/02/2024 9:48 AM CDT) WBC 6.9 3.8 - 9.9 K/cumm Hgb 12.0(L) 13.0 - 17.5 g/dL [facility] Hct 36.4(L) 38.9 - 50.3 % [facility] Plt 245 150 - 400 K/cumm [facility] MPV 8.9(L) 9.1 - 12.3 fL [facility] RBC 4.71 4.30 - 5.80 M/cumm [facility] MCV 77.3(L) 81.3 - 96.4 fL [facility] MCH 25.5(L) 27.1 - 33.3 pg [facility] MCHC 33.0 32.3 - 35.7 g/dL [facility] RDW CV 15.6(H) 11.1 - 14.9 % [facility] RDW SD 43.8 35.7 - 48.1 fL [facility] NRBC abs 0.00 0.00 - 0.01 K/cumm [facility] Blood 11/02/2024 9:48 AM CDT 11/02/2024 9:59 AM CDT Yana SIMMONS LAB BLOOD ORDERABLES Final Re sult Performing Organization Address [facility] Co de Phone Number [address] [place], [place] [id number] * Ethanol (11/02/2024 9:48 AM CDT) [facility] Ethanol <10 <=10 mg/dL Comment: Interpretive Data Legal limit of intoxication > or = 80 mg/dL Levels > or = 400 mg/dL are potentially TOXIC. Current interpretive data was last revised on 2018. Blood 11/02/2024 9:48 AM CDT 11/02/2024 9:59 AM CDT Yana SIMMONS LAB BLOOD ORDERABLES Final Re sult Performing Organization Address City/[facility]/ZIP Co de Phone Number [address] [place] [address] * (ABNORMAL) Comprehensive metabolic panel (11/02/2024 9:48 AM CDT) [facility] Sodium 137 135 - 145 mmol/L Potassium, pl 3.3 3.3 - 4.9 mmol/L [facility] Chloride 98 97 - 110 mmol/L [facility] CO2 30 22 - 32 mmol/L [facility] Anion gap 9 2 - 15 mmol/L [facility] BUN 4(L) 6 - 25 mg/dL [facility] Creatinine 0.82 0.80 - 1.30 mg/dL [facility] Glucose 90 70 - 199 mg/dL [facility] Comment: Interpretive Data Fasting glucose >/= 126 mg/dl is diagnostic for diabetes. Fasting is defined as no caloric intake for at least 8 hours. Fasting glucose between 100 mg/dl to 125 mg/dl is diagnostic of prediabetes. In a patient with classic symptoms of hyperglycemia or hyperglycemic crisis, a random glucose >/= 200 mg/dl is diagnostic for diabetes. In the absence of unequivocal hyperglycemia, results should be confirmed by repeat testing. The classification and Diagnosis of Diabetes Diabetes Care 202; 46: S19-S40. Current interpretive data was last revised 2022. Calcium 8.9 8.5 - 10.3 mg/dL [facility] Bilirubin, total 1.2 0.1 - 1.2 mg/dL [facility] Protein, pl 7.2 6.5 - 8.5 g/dL [facility] Albumin 3.7 3.5 - 5.0 g/dL [facility] Alk phos 148(H) 40 - 130 Units/L [facility] ALT 24 7 - 55 Units/L [facility] AST 67(H) 10 - 50 Units/L [facility] Blood 11/02/2024 9:48 AM CDT 11/02/2024 9:59 AM CDT us Yana SIMMONS LAB BLOOD ORDERABLES Final Re sult [facility] [address] Department [place] [address] * CT Lumbar Spine WO Contrast (11/02/2024 8:22 AM CDT) Anatomical Region Laterality Modality Spine N/A Computed Tomogra phy 11/02/2024 8:39 AM CDT Narrative 11/02/2024 8:46 AM CDT EXAM DESCRIPTION: CT LUMBAR SPINE WO CONTRAST REASON FOR STUDY: Low back pain, trauma from home by EMS. States he was 4-5 rungs up a ladder yesterday when he fell, landing on his back. Today c/o L jaw and neck pain, also low back pain. Ambulated for EMS. Denies head injury. Does not recall if LOC. Pt states he had back surgery TECHNIQUE: Axial images acquired through the lumbar spine without intravenous contrast. Reconstructed coronal and sagittal MPR images reviewed. All images stored on PACS. Automated exposure control was used as a dose optimization technique for this examination. COMPARISON: 08/19/2023. FINDINGS: SEGMENTATION: No transitional anatomy. The lowest well-developed disc space is labeled L5-S1. ALIGNMENT: Normal. VERTEBRAE: No fracture. Vertebral heights well-maintained. DISC HEIGHT: There is disc space narrowing which is moderate to severe at L4-5 and L5-S1 similar the prior study with areas of broad-based disc bulge at L3-4, L4-5 and L5-S1 which is similar to prior imaging. HARDWARE: None in the spine. INDIVIDUAL DISC LEVELS: No significant osseous spinal canal or neural foraminal stenosis. VISUALIZED RIBS: No fractures. SOFT TISSUES: There is mild wall thickening of the urinary bladder. Prominent fecal material in the rectum. OTHER: None. IMPRESSION: No evidence of an acute osseous abnormality of the lumbar spine. Moderate to severe lumbar spondylosis at L4-5 and L5-S1. Areas of broad-based disc bulge in the lumbar spine. THIS IS AN ELECTRONICALLY VERIFIED FINAL REPORT 11/02/2024 8:46 AM - Electronically signed by Noe Rob M.D. T: Report ID: [id number] Reading Location: [id number] Procedure Note Noe Rob Jr., MD - 11/02/2024 EXAM DESCRIPTION: CT LUMBAR SPINE WO CONTRAST REASON FOR STUDY: Low back pain, trauma from home by EMS. States he was 4-5 rungs up a ladder yesterday when hefell, landing on his back. Today c/o L jaw and neck pain, also low back pain. Ambulated for EMS. Denies head injury. Does not recall if LOC. Ptstates he had back surgery TECHNIQUE: Axial images acquired through the lumbar spine withoutintravenous contrast. Reconstructed coronal and sagittal MPR images reviewed. Allimages stored on PACS. Automated exposure control was used as a dose optimization technique forthis examination. COMPARISON: 08/19/2023. FINDINGS: SEGMENTATION: No transitional anatomy. The lowestwell-developed disc space is labeled L5-S1. ALIGNMENT: Normal. VERTEBRAE: No fracture. Vertebral heights well-maintained. DISC HEIGHT: There is disc space narrowing which is moderate to severeat L4-5 and L5-S1 similar the prior study with areas of broad-based discbulge at L3-4, L4-5 and L5-S1 which is similar to prior imaging. HARDWARE: None in the spine. INDIVIDUAL DISC LEVELS: No significant osseous spinal canal or neural foraminal stenosis. VISUALIZED RIBS: No fractures. SOFT TISSUES: There is mild wall thickening of the urinary bladder. Prominent fecal material in the rectum. OTHER: None. IMPRESSION: No evidence of an acute osseous abnormality of the lumbar spine. Moderate to severe lumbar spondylosis at L4-5 and L5-S1. Areas of broad-based disc bulge in the lumbar spine. THIS IS AN ELECTRONICALLY VERIFIED FINAL REPORT 11/02/2024 8:46 AM - Electronically signed by Noe Rob M.D. T: Report ID: [id number] Reading Location: [place] [address] PROCEDURES Final Resul t * CT Cervical Spine WO Contrast (11/02/2024 8:22 AM CDT) Anatomical Region Laterality Modality Spine N/A Computed Tomogra phy 11/02/2024 8:46 AM CDT Narrative 11/02/2024 8:51 AM CDT EXAM DESCRIPTION: CT CERVICAL SPINE WO CONTRAST REASON FOR STUDY: Neck trauma, uncomplicated (NEXUS/CCR neg) (Age 16-64y) from home by EMS. States he was 4-5 rungs up a ladder yesterday when he fell, landing on his back. Today c/o L jaw and neck pain, also low back pain. Ambulated for EMS. Denies head injury. Does not recall if LOC. Pt in c-collar TECHNIQUE: Axial images through the cervical spine with sagittal and coronal reformatted images. Automated exposure control was used as a dose optimization technique for this examination. COMPARISON: None. FINDINGS: ALIGNMENT: Maintained AP alignment. DISCS: There is mild disc space narrowing in the cervical spine, this is most pronounced at C5-6 and C6-7. VERTEBRAE: No acute fracture identified. Vertebral body heights are maintained. Facets align normally. There is anterior osteophytic spurring C6-7. HARDWARE: None in the spine. INDIVIDUAL DISC LEVELS: No significant osseous spinal canal stenosis. There is severe right and mild left osseous neuroforaminal stenosis C3-4. There is moderate bilateral osseous neuroforaminal stenosis C5-6. Mild bilateral osseous neuroforaminal stenosis C6-7. UPPER THORACIC: Incompletely imaged with no significant abnormality. SKULL BASE: No significant abnormality. LUNG APICES: Emphysema is identified. NECK SOFT TISSUES: No abnormalities are seen in the soft tissues of the neck. OTHER: No other significant abnormality. IMPRESSION: No evidence of an acute osseous abnormality of the cervical spine. Mild cervical spondylosis. Emphysema. THIS IS AN ELECTRONICALLY VERIFIED FINAL REPORT 11/02/2024 8:51 AM - Electronically signed by Noe Rob M.D. T: Report ID: [id number] Reading Location: [place] [address] Procedure Note Noe Rob Jr., MD - 11/02/2024 EXAM DESCRIPTION: CT CERVICAL SPINE WO CONTRAST REASON FOR STUDY: Neck trauma, uncomplicated (NEXUS/CCR neg) ([id number]) from home by EMS. States he was 4-5 rungs up a ladder yesterday when hefell, landing on his back. Today c/o L jaw and neck pain, also low back pain. Ambulated for EMS. Denies head injury. Does not recall if LOC. Pt in c-collar TECHNIQUE: Axial images through the cervical spine with sagittal andcoronal reformatted images. Automated exposure control was used as a doseoptimization technique for this examination. COMPARISON: None. FINDINGS: ALIGNMENT: Maintained AP alignment. DISCS: There is mild disc space narrowing in the cervical spine, this ismost pronounced at C5-6 and C6-7. VERTEBRAE: No acute fracture identified. Vertebral body heights are maintained. Facets align normally. There is anterior osteophyticspurring C6-7. HARDWARE: None in the spine. INDIVIDUAL DISC LEVELS: No significant osseous spinal canal stenosis.There is severe right and mild left osseous neuroforaminal stenosis C3-4. Thereis moderate bilateral osseous neuroforaminal stenosis C5-6. Mild bilateral osseous neuroforaminal stenosis C6-7. UPPER THORACIC: Incompletely imaged with no significant abnormality. SKULL BASE: No significant abnormality. LUNG APICES: Emphysema is identified. NECK SOFT TISSUES: No abnormalities are seen in the soft tissues of theneck. OTHER: No other significant abnormality. IMPRESSION: No evidence of an acute osseous abnormality of the cervical spine. Mild cervical spondylosis. Emphysema. THIS IS AN ELECTRONICALLY VERIFIED FINAL REPORT 11/02/2024 8:51 AM - Electronically signed by Noe Rob M.D. T: Report ID: [id number] Reading Location: [id number] Yana SIMMONS IMG CT PROCEDURES Final Resul t * CT Facial Bones WO Contrast (11/02/2024 8:22 AM CDT) Anatomical Region Laterality Modality Head and Neck N/A Computed Tomogra phy 11/02/2024 8:36 AM CDT Narrative 11/02/2024 8:39 AM CDT EXAM DESCRIPTION: CT FACIAL BONES WO CONTRAST REASON FOR STUDY: Facial trauma, blunt from home by EMS. States he was 4-5 rungs up a ladder yesterday when he fell, landing on his back. Today c/o L jaw and neck pain, also low back pain. Ambulated for EMS. Denies head injury. Does not recall if LOC. TECHNIQUE: Noncontrast computed tomography images through the paranasal sinuses. Reconstructed MPR images reviewed. All images stored on PACS. Automated exposure control was used as a dose optimization technique for this examination. COMPARISON: None. FINDINGS: BONES: The mandibular condyles are normally position in the glenoid fossa. There is no acute mandibular fracture. The zygomatic arches and zygomaticomaxillary sutures are intact. The pride of the maxilla are intact. There is no acute nasal bone fracture. SOFT TISSUES: No acute soft tissue abnormality. SINUSES: The included paranasal sinuses and mastoid air cells are predominantly clear. NASAL CAVITY: Slight rightward nasal septal deviation. ORBITS: The orbits are unremarkable. Intraorbital fat planes are clear. TMJ: Mandibular condyles intact. MASTOIDS: Mastoid air cells are predominantly clear. BRAIN: See separate head CT dictation. OTHER: No other significant finding. IMPRESSION: No evidence of an acute maxillofacial fracture. THIS IS AN ELECTRONICALLY VERIFIED FINAL REPORT 11/02/2024 8:39 AM - Electronically signed by Noe Rob M.D. T: Report ID: [id number] Reading Location: [id number] Procedure Note Noe Rob Jr., MD - 11/02/2024 EXAM DESCRIPTION: CT FACIAL BONES WO CONTRAST REASON FOR STUDY: Facial trauma, blunt from home by EMS. States he was 4-5 rungs up a ladder yesterday when hefell, landing on his back. Today c/o L jaw and neck pain, also low back pain. Ambulated for EMS. Denies head injury. Does not recall if LOC. TECHNIQUE: Noncontrast computed tomography images through the paranasal sinuses. Reconstructed MPR images reviewed. All images stored on PACS. Automated exposure control was used as a dose optimization technique forthis examination. COMPARISON: None. FINDINGS: BONES: The mandibular condyles are normally position in the glenoid fossa. There is no acute mandibular fracture. The zygomaticarches and zygomaticomaxillary sutures are intact. The pride of the maxilla are intact. There is no acute nasal bone fracture. SOFT TISSUES: No acute soft tissue abnormality. SINUSES: The included paranasal sinuses and mastoid air cells are predominantly clear. NASAL CAVITY: Slight rightward nasal septal deviation. ORBITS: The orbits are unremarkable. Intraorbital fat planes are clear. TMJ: Mandibular condyles intact. MASTOIDS: Mastoid air cells are predominantly clear. BRAIN: See separate head CT dictation. OTHER: No other significant finding. IMPRESSION: No evidence of an acute maxillofacial fracture. THIS IS AN ELECTRONICALLY VERIFIED FINAL REPORT 11/02/2024 8:39 AM - Electronically signed by Noe Rob M.D. T: Report ID: [id number] Reading Location: [id number] Yana Peterson IRIS IMG CT PROCEDURES Final Resul t * CT Head WO Contrast (11/02/2024 8:22 AM CDT) Anatomical Region Laterality Modality Head and Neck N/A Computed Tomogra phy 11/02/2024 8:34 AM CDT Narrative 11/02/2024 8:36 AM CDT EXAM DESCRIPTION: CT HEAD WO CONTRAST REASON FOR STUDY: Facial trauma, blunt from home by EMS. States he was 4-5 rungs up a ladder yesterday when he fell, landing on his back. Today c/o L jaw and neck pain, also low back pain. Ambulated for EMS. Denies head injury. Does not recall if LOC. Hx: HTN TECHNIQUE: Axial images acquired through the brain without intravenous contrast. Images stored on PACS. Automated exposure control was used as a dose optimization technique for this examination. COMPARISON: None. FINDINGS: BRAIN: No acute intraparenchymal hemorrhage, cerebral edema, hydrocephalus, mass, or mass effect. EXTRA-AXIAL SPACES: No extra-axial fluid collection or mass. CALVARIUM: There is an old healed left parietal calvarial fracture defect. No evidence of an acute skull base or calvarial abnormality. SINUSES/MASTOIDS: Predominantly clear. ORBITS: No significant abnormality. OTHER: No other significant abnormality. IMPRESSION: No evidence of an acute intracranial abnormality. Old healed left parietal calvarial fracture. THIS IS AN ELECTRONICALLY VERIFIED FINAL REPORT 11/02/2024 8:36 AM - Electronically signed by Noe Rob M.D. T: Report ID: [id number] Reading Location: [id number] Procedure Note Noe Rob Jr., MD - 11/02/2024 EXAM DESCRIPTION: CT HEAD WO CONTRAST REASON FOR STUDY: Facial trauma, blunt from home by EMS. States he was 4-5 rungs up a ladder yesterday when hefell, landing on his back. Today c/o L jaw and neck pain, also low back pain. Ambulated for EMS. Denies head injury. Does not recall if LOC. Hx:HTN TECHNIQUE: Axial images acquired through the brain without intravenous contrast. Images stored on PACS. Automated exposure control was used asa dose optimization technique for this examination. COMPARISON: None. FINDINGS: BRAIN: No acute intraparenchymal hemorrhage, cerebral edema,hydrocephalus, mass, or mass effect. EXTRA-AXIAL SPACES: No extra-axial fluid collection or mass. CALVARIUM: There is an old healed left parietal calvarial fracturedefect. No evidence of an acute skull base or calvarial abnormality. SINUSES/MASTOIDS: Predominantly clear. ORBITS: No significant abnormality. OTHER: No other significant abnormality. IMPRESSION: No evidence of an acute intracranial abnormality. Old healed left parietal calvarial fracture. THIS IS AN ELECTRONICALLY VERIFIED FINAL REPORT 11/02/2024 8:36 AM - Electronically signed by Noe Rob M.D. T: Report ID: [id number] Reading Location: [place] [address] Yana SIMMONS [facility] CT PROCEDURES Final Resul t * (ABNORMAL) Urinalysis reflex to microscopic and culture Urine (01/04/2024 7:22 AM CDT) Color, ur Other(A) Yellow Clarity, ur Cloudy(A) Clear [facility] Specific gravity, ur 1.021 1.003 - 1.030 [facility] pH, urine 7.0 [facility] Comment: Interpretive Data U rine pH is affected by diet, medications, systemic acid-base disturbances, and renal tubular function. pH may affect urinary stone formation. For example, urine pH below 6.0 may help reduce the tendency for calcium phosphate stones and pH greater than 6.0 may reduce the tendency for uric acid stone formation. Source: [facility] [employer] Current Interpretive Data was last revised on 2017 Protein, ur ql 2+(A) Negative [facility] Glucose, ur ql Negative Negative [facility] Ketones, ur Negative Negative [facility] Bilirubin, ur Negative Negative [facility] Blood, ur 3+(A) Negative [facility] Urobilinogen, ur <2.0 <2.0 mg/dL [facility] Nitrite, ur Positive(A) Negative [facility] Leukocyte esterase, ur 4+(A) Negative [facility] UA reflex comment Reflex to microscopic UA will be performed. [facility] Urine 01/04/2024 7:22 AM CDT 01/04/2024 7:30 AM CDT us Pedro Ochoa MD LAB MICROBIOLOGY - GENERAL ORDERABLES Final Result [facility] [address] Department [place] [address] * (ABNORMAL) Lipid panel (08/13/2023 5:23 AM FINANCIAL DATA ANALYST) Cholesterol 159 30 - 199 mg/dL [facility] Comment: Interpretive Data Ages < or = 19 years Acceptable: <170 mg/dL Borderline high: 170-199 mg/dL High: >or= 200 mg/dL Ages > or = 20 years Desirable: <200 mg/dL Borderline high: 200-239 mg/dL High: >or= 240 mg/dL Literature References: 1. Expert Panel on Integrated Guidelines for Cardiovascular Health and Risk Reduction in Children and Adolescents. Pediatrics 2011;128:S213 2. NCEP Expert Panel. Circulation 2004;110:227 Current Interpretive Data was last revised on 2018. Triglycerides 308(H) <=149 mg/dL [facility] Comment: Interpretive Data Ages < or = 9 years Acceptable: <75 mg/dL Borderline high: 75-99 mg/dL High: >or= 100 mg/dL Ages 10 to 20 years Acceptable: <90 mg/dL Borderline high: 90-129 mg/dL High: >or= 130 mg/dL Ages > or = 20 years Desirable: <150 mg/dL Borderline high: 150-199 mg/dL High: 200-499 mg/dL Very high: >or= 499 mg/dL Literature References: 1. Expert Panel on Integrated Guidelines for Cardiovascular Health and Risk Reduction in Children and Adolescents. Pediatrics 2011;128:S213 2. NCEP Expert Panel. Circulation 2004;110:227 Current Interpretive Data was last revised on 2018. HDL 67 >=40 mg/dL [facility] Comment: Interpretive Data Ages < or = 19 years Acceptable: >45 mg/dL Borderline low: 40-45 mg/dL Low: <40 mg/dL Ages > or = 20 years Desirable: >or= 60 mg/dL Low: <40 mg/dL Literature References: 1. Expert Panel on Integrated Guidelines for Cardiovascular Health and Risk Reduction in Children and Adolescents. Pediatrics 2011;128:S213 2. NCEP Expert Panel. Circulation 2004;110:227 Current Interpretive Data was last revised on 2018. LDL, calculated 30 <=129 mg/dL [facility] Comment: Interpretive Data Ages < or = 19 years Acceptable: <110 mg/dL Borderline high: 110-129 mg/dL High: >or= 130 mg/dL Ages > or = 20 years Optimal: <100 mg/dL Near optimal: 100-129 mg/dL Borderline high: 130-159 mg/dL High: >160 mg/dL Literature References: 1. Expert Panel on Integrated Guidelines for Cardiovascular Health and Risk Reduction in Children and Adolescents. Pediatrics 2011;128:S213 2. NCEP Expert Panel. Circulation 2004;110:227 Current Interpretive Data was last revised on 2018. Non-HDL Cholesterol 92 mg/dL [facility] Comment: Interpretive Data Ages < or = 19 years Acceptable: <120 mg/dL Borderline high: 120-144 mg/dL High: >145 mg/dL Ages > or = 20 years When triglycerides are >200 mg/dL, Non-HDL cholesterol is a secondary target of therapy with treatment goals that are 30 mg/dL greater than the LDL cholesterol target. Literature References: 1. Expert Panel on Integrated Guidelines for Cardiovascular Health and Risk Reduction in Children and Adolescents. Pediatrics 2011;128:S213 2. NCEP Expert Panel. Circulation 2004;110:227 Current Interpretive Data was last revised on 2018. Chol/HDL ratio 2 [facility] Blood 08/13/2023 5:23 AM FINANCIAL DATA ANALYST 08/13/2023 5:25 AM FINANCIAL DATA ANALYST Scotty Gill MD LAB BLOOD ORDERABLES Final Result Performing Organization Address City/State/[facility] Co de Phone Number [facility] [address] [place] [address] * RPR Blood (02/14/2023 5:08 AM CDT) [facility] RPR Nonreactive Nonreactive [facility] Comment:Testing performed by : [facility], [address] [facility] [address] Blood 02/14/2023 5:08 AM CDT 02/14/2023 8:06 AM CDT Teresa Hernandez DO LAB MICROBIOLOGY - GENERAL ORDPeter BRASWELL Final Result Performing Organization Address [facility] Co de Phone Number [facility] [address] [place] [address] * (ABNORMAL) TB test, quantiferon gold (08/31/2022 3:10 PM FINANCIAL DATA ANALYST) [facility] Quantiferon TB Gold Positive( A) Negative [facility] Comment: Interferon-gamma response to M. tuberculosis antigens detected, suggesting infection with M. tuberculosis. Positive results in patients at low-risk for tuberculosis should be interpreted with caution and repeat testing on a new sample should be considered as recommended by the 2017 ATS/IDSA/CDC Clinical Practice Guidelines for Diagnosis of Tuberculosis in Adults and Children [Gian DIXON et. al. Clin. Infect. Dis. 2017;64(2):111-115]. False positive results may occur in patients with prior infection with M. marinum, M. szulgai or M. kansasii. The reference range for the 'TB1 Ag minus Nil Result' and 'TB2 Ag minus Nil Result' is an Interferon-gamma level <0.35 IU/mL. TB-Nil 1.65 IUnits/mL [place] TB2-Nil 1.81 IUnits/mL [place] Mitogen-Nil 9.97 IUnits/mL [place] NIL 2.32 IUnits/mL [place] Comment: Test Performed by: [facility] [address] [place] [address] Commercial Collections Driver: Yugn Henning M.D. Ph.D.; [facility]# [id number] Blood 08/31/2022 3:10 PM FINANCIAL DATA ANALYST 08/31/2022 3:19 PM FINANCIAL DATA ANALYST us Cody Medina MD LAB BLOOD ORDERABLES Final R esult Performing Organization Address City/[facility]/ZIP Co de Phone Number JESS[address] [place] [address] * Hepatitis panel, acute (08/31/2022 9:01 AM FINANCIAL DATA ANALYST) Hep A IgM Nonreactive Nonreactive [facility] Comment: Interpretive Data: If Hep A IgM Ab is reported as Equivocal, a new sample should be drawn in two weeks for testing. Current interpretive data was last revised on 19. Hep B core IgM Nonreactive Nonreactive [facility] Comment: Interpretive Data If HepB Core IgM Ab is reported as Equivocal, a new sample should be drawn in two weeks for testing. Current interpretive data was last revised on 19. Hep C Ab Nonreactive Nonreactive [facility] Comment: Interpretive Data Nonreactive: Antibodies to HCV not detected. Does NOT exclude the possibility of recent exposure to HCV. Equivocal: Equivocal for HCV antibodies. Supplemental molecular testing will be automatically performed to determine infection status in accordance with current CDC screening recommendations. Reactive: Positive for HCV antibodies. This may represent current or past HCV infection. Supplemental molecular testing will be automatically performed to determine current infection status in accordance with current CDC screening recommendations. Interpretive data was last revised on 2019. HepBsAg Nonreactive Nonreactive [facility] Blood 08/31/2022 9:01 AM FINANCIAL DATA ANALYST 08/31/2022 9:33 AM FINANCIAL DATA ANALYST us Scotty Gill MD LAB MICROBIOLOGY - GE NERAL ORDERABLES Final Result [address]ESS[address] [place] [address] * Hemoglobin A1c (08/31/2022 9:01 AM FINANCIAL DATA ANALYST) Hgb A1C 5.0 4.0 - 5.6 % [place] [facility] Estimated Average Glucose 97 mg/dL [place] Comment: The ADA recommends reporting an estimated Average Glucose (eAG) with all Hemoglobin A1c results using the equation derived from a study of 507 normal and diabetic adults. Minority populations were underrepresented and children were not included. (Diabetes Care 31:9262-1199, 2008). The eAG is not equivalent to a fasting glucose. Blood 08/31/2022 9:01 AM FINANCIAL DATA ANALYST 08/31/2022 9:33 AM FINANCIAL DATA ANALYST us Scotty Gill MD LAB BLOOD ORDERABLES Final Result [place] [address] [facility] [place] [address] from Last 3 Months or Most Recently Relevant to Health Maintenance Insurance IDVT [facility] Advance Directives For more information, please contact: [phone] * Full Code (Latest Code Status on File) Date Activated Date Inactivated Comments 11/02/2024 11:50 AM 11/06/2024 1:34 PM * Full Code Date Activated Date Inactivated Comments 08/13/2023 6:13 PM 08/14/2023 6:42 PM * Full Code Date Activated Date Inactivated Comments 09/11/2022 1:49 PM 09/14/2022 10:25 PM * Full Code Date Activated Date Inactivated Comments 09/11/2022 1:46 PM 09/11/2022 1:49 PM * Full Code Date Activated Date Inactivated Comments 08/31/2022 2:20 AM 09/10/2022 6:49 PM Care Teams Film Printer Relationship Specialty Start Date End Date Nelly Hernandez MD [address] [place] [address] PCP - General Family Medicine 08/14/23
--- OUTSIDE RECORDS SUMMARY | 2024-11-18 09:04 | XMS_ITS | Patient Health Record ---
Author Organization Formerly [facility], [facility] Address [address] [place] [address] Care Team Providers Care Affiliate Manager Name Role Phone Yue Solis Primary Care Provider Winter Kwan Unavailable [phone] Curt Parikh Unavailable [phone] Casi Begum Unavailable [phone] Ryan Hitchcock Unavailable [phone] Scarlet Romero Unavailable [phone] Allergies Allergen (clinical drug ingredient) Drug/Non Drug [...] Neg OXY Neg PCP Neg BUP Neg Breathalyzer Reviewed date:11/06/2024 11:43:25 AM Interpretation: Performing Lab: Notes/Report: YESSY 0.000 12 Panel Urine Drug Screen Reviewed date:11/06/2024 12:40:49 PM Interpretation: Performing Lab: Notes/Report: THC pos HENRIQUE neg MOP (OPI) neg AMP neg MET neg BAR neg BZO pos MDMA neg MTD neg OXY neg PCP neg BUP neg QuantiFERON-TB Gold Plus ([id number]) (Not yet reviewed by provider) Interpretation: Performing Lab:[facility], [address] [facility], Phone - [phone], [facility] Notes/Report: QuantiFERON Incubation Incubation performed. QuantiFERON-TB Gold Plus Negative Negative No response to M tuberculosis antigens detected. Infection with M tuberculosis is unlikely, but high risk individuals should be considered for additional testing (ATS/IDSA/CDC Clinical Practice Guidelines, 2017). The reference range is an Antigen minus Nil result of <0.35 IU/mL. Chemiluminescence immunoassay methodology QuantiFERON Criteria QuantiFERON-TB Gold Plus is a qualitative indirect test for M tuberculosis infection (including disease) and is intended for use in conjunction with risk assessment, radiography, and other medical and diagnostic evaluations. The QuantiFERON-TB Gold Plus result is determined by subtracting the Nil value from either TB antigen (Ag) value. The Mitogen tube serves as a control for the test. QuantiFERON TB1 Ag Value 0.52 QuantiFERON TB2 Ag Value 0.41 QuantiFERON Nil Value 0.23 QuantiFERON Mitogen Value >10.00 QuantiFERON-TB Gold Plus (18 [id number]) Reviewed date:03/30/2024 10:11:00 AM Interpretation: Performing Lab:[facility], [address] [facility], Phone - [phone], [facility] Notes/Report: QuantiFERON Incubation Incubation performed. QuantiFERON-TB Gold Plus Positive Negative A response to M tuberculosis antigens has been detected. If patient is at low risk for Tuberculosis, the result should be interpreted with caution and repeat testing on a new specimen is recommended (ATS/IDSA/CDC Clinical Practice Guidelines, 2017). False positives can also occur due to infection by M kansasii, M szulgai, or M marinum. Chemiluminescence immunoassay methodology QuantiFERON Criteria QuantiFERON-TB Gold Plus is a qualitative indirect test for M tuberculosis infection (including disease) and is intended for use in conjunction with risk assessment, radiography, and other medical and diagnostic evaluations. The QuantiFERON-TB Gold Plus result is determined by subtracting the Nil value from either TB antigen (Ag) value. The Mitogen tube serves as a control for the test. QuantiFERON TB1 Ag Value 2.46 QuantiFERON TB2 Ag Value 2.23 QuantiFERON Nil Value 0.04 QuantiFERON Mitogen Value >10.00 Reason For Referral No Information Medications Medication SIG (Take, Route, Frequency, Duration) Notes Start Date End Date Status ARIPiprazole 5 MG 1 tablet Orally once daily in the evening for 30 days 11/11/2024 Active [place] Carbonate 300 MG 1 capsule Orall y Twice a day for 30 days Active Stribild [phone] MG 1 tablet Orally Once a day for 30 days Active Vivitrol 380 MG as directed Intramus cular every 28 days for 28 days 11/12/2024 Active QUEtiapine Fumarate 50 MG 0.5-1 tablet o nce daily at bedtime as needed for sleep Orally for 30 days 11/11/2024 Active Losartan Potassium 50 MG 1 tablet Orally Once a day for 30 days Active Lidocaine 5 % 1 patch remove after 12 hours Externally Once a day for 30 days As needed BACK PAIN on unit 03/23/2024 Active amLODIPine Besylate 5 MG 1 tablet Orally Once a day for 30 days Active Immunizations Vaccine Route Administration Date Status Comme nts COVID-19 Moderna 1ST IM Intramuscular 01/12/2021 Administe anastacia Social History Tobacco Use: Social History Observation [...] phone, visiting friends or family, going to judaism or club meetings) More than 5 times a week How stressed are you? Stress is when someone feels tense, nervous, anxious, or can\t sleep at night because their mind is troubled Somewhat In the past year have you sp ent more than 2 nights in a row in a prison, snf, intermediate center, or juvenile correctional facility? No Are [...] hx--ex- attempt ed to cut his throat --trauma hx--ex- attempt ed to cut his throat --trauma hx--ex- attempt ed to cut his throat --trauma hx--ex- attempt ed to cut his throat --trauma hx--ex- attempt ed to cut his throat Problems Problem Type SNOMED Code ICD Code Onset Dates Problem Status W/U Status Risk Notes Problem Hypertension (97254428) Hypertension (I10) 025 Active confirmed Problem Mood disorder (43819324) Mood disorder (F39) Active confirmed Problem Generalized anxiety disorder (58264647) EBONI (generalized anxiety disorder) (F41.1) Active confirmed Problem Major depressive disorder (958131165) MDD (major depressive disorder) (F32.9) Active confirmed Problem Alcohol use disorder (4737719868) Alcohol use disorder (F10.99) Active confirmed Problem Human immunodeficiency virus infection (77202183) HIV disease (B20) Active confirmed Problem 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 confirmed Problem 4848547 Postherpetic neuralgia (B02.29) Active confirmed Problem Tobacco user (948766200) Nicotine dependence with current use (F17.200) Active confirmed Vital Signs Heart Rate 85 /min 11/12/2024 Temperature 98.1 degrees Fahrenheit 11/12/2024 Respiratory Rate 16 /min 11/12/2024 Blood pressure diastolic 82 mm Hg 11/12/2024 Oximetry 99 % 11/12/2024 Height 72 in 11/12/2024 Blood pressure systolic 126 mm Hg 11/12/2024 Weight 160.2 lbs 11/12/2024 BMI 21.72 kg/m2 11/12/2024 Encounters Encounter Location Date Provider Diagnosis [place] [address] [address] [facility] [place] [address] 03/23/2024 Casi Begum Nicotine dependence, unspecified, uncomplicated F17.200 ; Encounter for annual physical exam Z00.00 ; Exposure to potential infection Z20.9 and Back pain M54.9 [facility] [address] [place] [address] 11/06/2024 Curt Parikh Alcohol use disorder F19.90 ; Exposure to potential infection Z20.9 ; Back pain M54.9 ; Hypertension I10 ; HIV disease B20 and Mood disorder F39 [facility] [address] [place] [address] 11/06/2024 Scarlet Romero [address] [place] [address] 11/11/2024 Ryan Hitchcock Mood disorder F39 ; EBONI (generalized anxiety disorder) F41.1 ; MDD (major depressive disorder) F32.9 ; Nicotine dependence, unspecified, uncomplicated F17.200 ; Alcohol use disorder F10.99 and Methamphetamine abuse in remission F15.11 [facility] [address] [place] [address] 11/12/2024 Winter Kwan Alcohol use disorder F10.99 and Nicotine dependence with current use F17.[address] [place] [address] 11/11/2024 Ryan Hitchcock [address] [place] [address] 03/23/2024 Winter Kwan [address] [place] [address] 03/26/2024 Winter Kwan Exposure to potentia l infection Z20.9 [facility] [address] [address] 03/30/2024 Casi Begum [facility] [address] [place] [address] 03/30/2024 Winter Kwan [facility] [place] [address] 11/06/2024 Curt Parikh [address] [address] 11/11/2024 Ryan Hitchcock [address] [address] 11/16/2024 Yue Short Back pain M54.9 Assessments Encounter Date Diagnosis (ICD Code) Assessment Notes Treatment Notes Treatment Clinical Notes Section Notes 11/06/2024 Alcohol use disorder (ICD-10 - F19.90) 11/06/2024 Exposure to potential infection (ICD-10 - Z20.9) 03/26/2024 Exposure to potential infection (ICD-10 - Z20.9) ++QuantiFerron TB--obtain cxr 11/11/2024 Mood disorder (ICD-10 - F39) Duration (acute/chronic), stability (controlled/uncont rolled): Chronic, uncontrolled, not currently taking medications, see HPI Current medications/effica cy: N/A Previous medication trials: quetiapine, cannot remember other previous medication trials Current/previous therapies: Denies previous therapy - participating in group on [facility] Examination as documented - see pertinent aspects of office visit documentation. Pertinent diagnostics: LABS COLLECTED LAST MONTH BY PCP, WILL REQUEST RECORDS Differential diagnoses: RECOMMENDATIONS: START quetiapine as prescribed to assist with sleep/mood - educated patient/guardian on adverse effects, risks and benefits, as well as alternative treatments START aripiprazole as prescribed to assist with mood/stability - educated patient/guardian on adverse effects, risks and benefits, as well as alternative treatments Consume well balanced diet, preferably low in saturated fats (solid at room temperature, such as butter, margarine, Crisco, etc) and low in sodium (<2,000mg per day). Consume plenty of fruits/vegetables, healthy grains/whole grains, unsaturated/health y fats (liquid at room temperature, such as olive oil, sunflower seed oil, canola, vegetable, etc.). Exercise regularly - Develop an exercise routine. 30 minutes of moderate exercise (walking at a brisk pace) 5 times per week is recommended. You should work hard enough to cause a sweat but still be able to talk with others while exercising. Exercise improves overall health - improves blood pressure and blood sugar, helps control weight, reduces stress, and improves mood. Practice stress reduction techniques, such as guided imagery, journaling, aromatherapy, acupuncture/acupre ssure, deep breathing, etc. Practice healthy sleep hygiene - maintain regular routine, no caffeine after 1PM, no exercise 1-2 hours prior to bedtime, keep bedroom dark and cool, no TV or electronics while in bed. Consider melatonin as needed. Consider cognitive behavioral therapy for insomnia (CBT-I). Consider/Continue therapy. Consider/Continue substance cessation therapy as needed - contact office if desiring medication assisted therapy. Manage co-morbid conditions. Continue monitoring symptoms - report persistent or worsening/concerni ng symptoms to the office or go to the ER. For mental health CRISIS, please reach out to [phone] ([facility] Suicide and Crisis Lifeline), 911, go to the emergency department, or contact the [facility] Crisis Unit/Team. Follow up as scheduled on 11/20/2024 VIA ZOOM FROM CRU or sooner if necessary. Follow up with PCP and/or other specialists as advised. NEXT STEP: Consider increasing quetiapine as needed. Consider increasing aripiprazole as needed. Consider other mood stabilizing agents as needed. 11/12/2024 Alcohol use disorder (ICD-10 - F10.99) 11/12/2024 Nicotine dependence with current use (ICD-10 - F17.200) 11/16/2024 Back pain (ICD-10 - M54.9) 03/23/2024 Nicotine dependence, unspecified, uncomplicated (ICD-10 - F17.200) 03/23/2024 Encounter for annual physical exam (ICD-10 - Z00.00) --follow up with PCP for lab results, and referral to orthopedic and dental after discharge --continue follow up with HIV provider, --follow up with PCP yearly for exam and labwork 03/23/2024 Exposure to potential infection (ICD-10 - Z20.9) --TB test obtained 11/11/2024 EBONI (generalized anxiety disorder) (ICD-10 - F41.1) See assessment and plan for mood disorder 11/06/2024 Back pain (ICD-10 - M54.9) 11/06/2024 Hypertension (ICD-10 - I10) 11/11/2024 MDD (major depressive disorder) (ICD-10 - F32.9) See assessment and plan for mood disorder 03/23/2024 Back pain (ICD-10 - M54.9) --trial Lidocaine patches to affected area for back pain --warm compresses and gentle stretching as tolerated --follow up with PCP as needed for back pain 11/11/2024 Nicotine dependence, unspecified, uncomplicated (ICD-10 - F17.200) Duration (acute/chronic), stability (controlled/uncont rolled): Cigarettes, smokes about 0.5 pack daily, has been smoking since about age 14 - patient verbalized no intention to quit at this time Current medications/effica cy: N/A Previous medication trials: N/A RECOMMENDATIONS: Consider/Continue substance cessation therapy as needed - contact office if desiring medication assisted therapy. Manage co-morbid conditions. Continue monitoring symptoms - report persistent or worsening/concerni ng symptoms to the office or go to the ER. For mental health CRISIS, please reach out to [phone] ([facility] Suicide and Crisis Lifeline), 911, go to the emergency department, or contact the [facility]Team. Follow up as scheduled or sooner if necessary. Follow up with PCP and/or other specialists as advised. NEXT STEP: Consider MAT as needed. 11/06/2024 HIV disease (ICD-10 - B20) 11/06/2024 Mood disorder (ICD-10 - F39) 11/11/2024 Alcohol use disorder (ICD-10 - F10.99) Duration (acute/chronic), stability (controlled/uncont rolled): Has been using for over 30 years (since about early 20s), last drink 11/02/2024, would consume about 1/5 daily - currently on CRU for treatment Current medications/effica cy: N/A Previous medication trials: N/A RECOMMENDATIONS: Consider/Continue substance cessation therapy as needed - contact office if desiring medication assisted therapy. Manage co-morbid conditions. Continue monitoring symptoms - report persistent or worsening/concerni ng symptoms to the office or go to the ER. For mental health CRISIS, please reach out to [phone] ([facility] Suicide and Crisis Lifeline), 911, go to the emergency department, or contact the [facility]/Team. Follow up as scheduled or sooner if necessary. Follow up with PCP and/or other specialists as advised. NEXT STEP: Consider MAT as needed. 11/11/2024 Methamphetamine abuse in remission (ICD-10 - F15.11) Duration (acute/chronic), stability (controlled/uncont rolled): methamphetamine (stopped in about 11/2023, used for about 4 year, never INJECTED, primarily smoked) - currently on CRU for treatment Current medications/effica cy: N/A Previous medication trials: N/A RECOMMENDATIONS: Consider/Continue substance cessation therapy as needed - contact office if desiring medication assisted therapy. Manage co-morbid conditions. Continue monitoring symptoms - report persistent or worsening/concerni ng symptoms to the office or go to the ER. For mental health CRISIS, please reach out to [phone] ([facility] Suicide and Crisis Lifeline), 911, go to the emergency department, or contact the [facility] Crisis Unit/Team. Follow up as scheduled or sooner if necessary. Follow up with PCP and/or other specialists as advised. NEXT STEP: Consider MAT as needed. 11/06/2024 Other [facility]Z SIGNED FOR [facility] 11/06/2024 Other Clinician met w ith client to assess needs for residential services. Clinician gathered information regarding historical presentation of mental health and substance use symptoms including withdrawal, HIV Risk assessment, psychiatric hospitalization history and presenting concern. Clinician conducted PHQ9 and CSSRS assessments as well as social drivers of health screening for the purposes of identifying additional service needs. 11/12/2024 Other Discussed medication side effects, adverse effects, risks, benefits, as well as interactions. Encouraged non-use of alcohol. Has Vivitrol alert bracelet, necklace, and wallet card. Recommended participation in recovery groups and/or counseling services. May contact office with questions or concerns. Plan Of Treatment Future Test Test Name Order Date Chest X-ray PA and lateral 03/26/2024 QuantiFERON-TB Gold Plus ([id number]) 2024 Next Appt Details Provider Name:Ryan Hitchcock, 11/19/2024 09:40:00 AM, [address], [place], [address], Insurance Providers Payer Name Payer Address Payer Phone Subscriber Number Group Number Insured Name Patient Relationship to Insured Coverage Start Date Coverage End Date [employer] A[employer] Medicare [address] [address] [place] [address] [phone] [id number] Addy Trotter Self - patient is the insured [address] [place] [address] [id number] Addy Trotter Self - patient is the insured 1 1 MEDICAID FFS [address] [place] [address] [id number] Addy Trotter Self - patient is the insured 1 1 [employer] Medicare [address] [place] [address] [id number] Addy Trotter Self - patient is the insured 2 2 [employer] Better [employer] Medicare-M MAI [address] [address] [place] [address] [id number] Addy Trotter Self - patient is the insured 2 Medications Administered Medication Instructions Date of Administration Dosage Notes Vivitrol 01/11/2021 380 mg Project Program Manager Gunjan maradiaga. Pt tolerated well. Voiced no questions or concerns at present time. Vivitrol 11/12/2024 380 mg Debi Reddy 11/12/2024 03:05 PM CDT >Given IM Lt Gluteus, tolerated well. [facility]# [id number]. Medical (General) History Medical History History ICD Code Alcohol use disorder F10.99 Cocaine use F14.90 Currently asymptomatic HIV infection, wi th history of HIV-related illness B20 Surgical History Surgery Date(Month/Year) Left leg Right leg, [place] Hospitalization History Reason Date(Month/Year) [place]- Right leg, george 08/2022
--- OUTSIDE RECORDS SUMMARY | 2024-11-18 09:04 | XMS_ITS ---
Author Organization [facility] Address [address] [place] [address] Care Team Providers Care Under Water Assistant Name Role Phone Yue Solis Primary Care Provider REASON FOR VISIT Med refill Medications Medication SIG (Take, Route, Fr equency, Duration) Notes Start Date End Date Status Lidocaine 5 % 1 patch remove after 12 hours Externally Once a day for 30 days As needed BACK PAIN on unit 03/23/2024 Active Social History Sex Assigned At : Social History Observation Description Sex Assigned At Male Encounters Encounter Location Date Provider Diagnosis [facility] [address] [place] [place] [address] 11/16/2024 Yue Short Back pain M54.9 Assessments Encounter Date Diagnosis (ICD Code) Assessment Notes Treatment Notes Treatment Clinical Notes Section Notes 11/16/2024 Back pain (ICD-10 - M54.9) Plan Of Treatment Medication Medication Name Sig Start Date Stop Date Notes Lidocaine 5 % 1 patch remove after 12 hours Externally Once a day for 30 days 03/23/2024 on unit Next Appt Details Provider Name:Ryan Hitchcock, 11/19/2024 09:40:00 AM, [address], [place], [address], Progress Notes * Addy JOHNDOB:1975 (49 yo M)Acc No.[id number]:11/16/2024 Patient: Kip Addy MARTE :1975 A ge:49 Y S ex:Male Address:[address] [place] [address] * Refills Refill Lidocaine Patch, 5 %, Externally, 30, 1 patch remove after 12 hours, Once a day, 30 days, Refills=0 * true * Date: Generated for Leon londono/Maribel/Maineitting on: 0 11/18/2024 09:04 AM CDT
--- OUTSIDE RECORDS SUMMARY | 2024-11-18 09:04 | XMS_ITS | Referral Summary ---
Author Organization [facility] Address [address] [place] [id number] Care Team Providers Care Sausage Wrapper Name Role Phone Nelly Hernandez MD Primary Care Provide r Encounters Date Type Department Care Team Description 11/02/2024 7:59 AM CDT - 11/06/2024 9:30 AM CDT Hospital Encounter [address] [address] Darin Dailey MD [place], Gwen Trammell MD Alcohol withdrawal syndrome without complication (HCC) (Primary Dx); Cocaine abuse (HCC); Fall in home, initial encounter; Spondylosis; Uncontrolled hypertension Discharge Disposition: Discharge to not defined facility from Last 3 Months Allergies No known active allergies Medications acetaminophen [...] day as needed for muscle spasms Active wvjvkdw-sqh-jxuhx -tenofo DISOP (STRIBILD) [phone] mg tablet Take 1 tablet by mouth [...] within 12 hours or as directed by MD. 14 patch 11/07/19 25 Active losartan (COZAAR) [...] tablet 09/28/19 23 2024 Discontinued(A lternate therapy) sievjnt-seu-nidlb -tenofo DISOP (STRIBILD) [phone] mg tabletIndications :HIV infection Take 1 tablet [...] 09/12/2022 Assessment & Plan (09/12/2022 6:59 AM MANAGER UNIT): -concern for extrapulmonary infections including diskitis -follow ID consult recommendations -AFB stain with no acid-fast bacilli noted, CT chest within normal limits Polysubstance abuse 09/12/2022 Overview (09/12/2022): -monitor cows score -screen for withdrawals Discitis, unspecified spinal region 09/11/2022 Assessment & Plan (09/12/2022 6:58 AM MANAGER UNIT): -s/p bone/disc biopsy by IR for follow [...] and vancomycin day 2 -pain control with [place] -start LR 125 cc/hour for 8 hours HIV (human immunodeficiency virus infection) Assessment & Plan (09/12/2022 6:58 AM MANAGER UNIT): ID consult recommendations -viral load 9390 CD4 [...] low back pain without sciatica 08/31/2022 08/31/2022 Immunizations Immunization Administration Dates Next Due Hep A, Unspecified 07/01/2009 Influenza, Quadrivalent, Spl it, Intramuscular 07/14/2019,05/03/2017,05/02/2015 Influenza, Quadrivalent, Spl it, Preservative Free, Intradermal 06/12/2016 Influenza, Quadrivalent, Spl it, Preservative Free, Intramuscular 08/14/2023,09/14/2022 Influenza, Trivalent, IM (MDV) 05/17/2014 Influenza, Unspecified 06/04/2013,05/26/2012, Pneumococcal Conjugate PCV 13 07/14/2019 Pneumococcal Polysaccharide PPV23 09/12/2016,,05/08/2006 Td, adsorbed 11/28/2010 Tdap 06/12/2016 Social History Tobacco Use Types Packs/Day Years Used Date Smoking Tobacco: Every Day Cigarettes Tobacco Cessation:Ready to Q uit: Not Asked; Counseling Given: Not Answered Alcohol Use Standard Drinks/Week Comments Yes 6 (1 standard drink = 0.6 oz pur e alcohol) [facility] Utilities Answer Date Recorded In the past 12 months has e [employer], gas, oil, or water [employer] threatened to shut off services in your [...] often do you attend chur ch or faith services? Never 11/03/2024 Do you belong to any clubs o r organizations such as confucianism groups, unions, fraternal or athletic groups, or [...] medical appointments or from getting medications? No 08/2024 In the past 12 months, has [...] place to sleep or slept in a mcfp (including now)? No 08/14/2023 Housing Stability Vital Sign Answer David e Recorded In the last 12 months, was t here a time when you were not able to pay the mortgage or rent on time? No 11/03/2024 In the past 12 months, how m any times have you moved where you were living? 0 11/03/2024 At any time in the past 12 m [facility], were you homeless or living in a mcfp (including now)? No 11/03/2024 Personal Safety Answer Date Recorded Have you ever been in or are you currently in a harmful physical or emotional relationship or is someone making you feel afraid or unsafe? Denies 11/02/2024 Sex and Gender Information Value Date Recorded Sex Assigned at Not on file Legal Sex Male 9:42 AM MANAGER UNIT Gender Identity Not on file Sexual Orientation [...] 11/02/2024 3:09 PM CDT Plan of Treatment Not on file Procedures Procedure Name Priority Date/Time Associated Diagnosis [...] CDT LIPID PANEL Routine 08/13/2023 5:23 AM MANAGER UNIT RPR STAT 02/14/2023 5:08 AM CDT TB TEST, QUANTIFERON GOLD Routine 08/31/2022 3:10 PM MANAGER UNIT HEMOGLOBIN A1C Routine 08/31/2022 9:01 AM MANAGER UNIT HEPATITIS PANEL, ACUTE Routine 08/31/2022 9:01 AM MANAGER UNIT from Last 3 Months or Most Recently [...] 5:27 AM CDT 11/06/2024 6:04 AM CDT us Yovani Zeng NP LAB BLOOD ORDERABLES Final Re sult [facility] [address] [facility] Department [place] [address] * (ABNORMAL) Differential, auto (11/06/2024 5:27 AM CDT) Neutrophil abs 7.25(H) 1.50 - 6.50 K/cumm Imm gran abs 0.04 0.00 - 0.10 K/cumm [facility] Lymphocyte abs 0.99 0.80 - 3.30 K/cumm [facility] Monocyte abs 0.89(H) 0.20 - 0.80 K/cumm [facility] Eosinophil abs 0.05 0.00 - 0.50 K/cumm [facility] Basophil abs 0.01 0.00 - 0.10 K/cumm [facility] Neutrophil pct 78.7 % [facility] Comment: Interpretive Data Percent cell count reference ranges are not reported, since discordance with absolute values may lead to misinterpretation of CBC data. Current Interpretive Data was last revised on 2017. Imm gran pct 0.4 % [facility] Comment: Interpretive Data Percent cell count reference ranges are not reported, since discordance with absolute values may lead to misinterpretation of CBC data. Current Interpretive Data was last revised on 2017. Lymphocyte pct 10.7 % [facility] Comment: Interpretive Data Percent cell count reference ranges are not reported, since discordance with absolute values may lead to misinterpretation of CBC data. Current Interpretive Data was last revised on 2017. Monocyte pct 9.6 % [facility] Comment: Interpretive Data Percent cell count reference ranges are not reported, since discordance with absolute values may lead to misinterpretation of CBC data. Current Interpretive Data was last revised on 2017. Eosinophil pct 0.5 % [facility] Comment: Interpretive Data Percent cell count reference ranges are not reported, since discordance with absolute values may lead to misinterpretation of CBC data. Current Interpretive Data was last revised on 2017. Basophil pct 0.1 % [facility] Comment: Interpretive Data Percent cell count reference ranges are not reported, since discordance with absolute values may lead to misinterpretation of CBC data. Current Interpretive Data was last revised on 2017. Blood 11/06/2024 5:27 AM CDT 11/06/2024 6:01 AM CDT Yovani Zeng FLAP LINING BINDER LAB BLOOD ORDERABLES Final Re sult Performing Organization Address [facility] Co de Phone Number [address] [employer] [place] [address] * (ABNORMAL) CBC with auto differential (11/06/2024 5:27 AM CDT) WBC 9.23 3.80 - 9.90 K/cumm Hgb 13.7 13.0 - 17.5 g/dL [facility] Hct 41.8 38.9 - 50.3 % [facility] Plt 316 150 - 400 K/cumm [facility] MPV 9.3 9.1 - 12.3 fL [facility] RBC 5.33 4.30 - 5.80 M/cumm [facility] MCV 78.4(L) 81.3 - 96.4 fL [facility] MCH 25.7(L) 27.1 - 33.3 pg [facility] MCHC 32.8 32.3 - 35.7 g/dL [facility] RDW CV 16.1(H) 11.1 - 14.9 % [facility] RDW SD 45.1 35.7 - 48.1 fL [facility] NRBC abs 0.00 0.00 - 0.01 K/cumm [facility] Blood 11/06/2024 5:27 AM CDT 11/06/2024 6:01 AM CDT Yovani Zeng LAB BLOOD ORDERABLES Final Re sult Performing Organization Address [facility] de Phone Number [address] [employer] [place] [address] * Hepatic function panel (11/06/2024 5:27 AM CDT) [facility] Bilirubin, total 0.3 0.1 - 1.2 mg/dL Bilirubin, direct 0.2 0.1 - 0.3 mg/dL [facility] Protein, pl 7.8 6.5 - 8.5 g/dL [facility] Albumin 3.9 3.5 - 5.0 g/dL [facility] Alk phos 128 40 - 130 Units/L [facility] ALT 24 7 - 55 Units/L [facility] AST 36 10 - 50 Units/L [facility] Blood 11/06/2024 5:27 AM CDT 11/06/2024 6:04 AM CDT Yovani Zeng NP LAB BLOOD ORDERABLES Final Re sult [facility] [address] [facility] Department [place] [address] * (ABNORMAL) Basic metabolic panel (11/06/2024 5:27 AM CDT) [facility] Sodium 133(L) 135 - 145 mmol/L Potassium, pl 4.3 3.3 - 4.9 mmol/L [facility] Chloride 95(L) 97 - 110 mmol/L [facility] CO2 27 22 - 32 mmol/L [facility] Anion gap 11 2 - 15 mmol/L [facility] BUN 15 6 - 25 mg/dL [facility] Creatinine 1.02 0.80 - 1.30 mg/dL [facility] Glucose 69(L) 70 - 199 mg/dL [facility] Comment: Interpretive Data Fasting glucose >/= 126 [...] 2022. Calcium 9.7 8.5 - 10.3 mg/dL [facility] Blood 11/06/2024 5:27 AM CDT 11/06/2024 6:04 AM CDT Yovani Zeng NP LAB BLOOD ORDERABLES Final Re sult Performing Organization Address [facility] Co de Phone Number [address] [address] * eGFR (11/05/2024 10:38 AM CDT) eGFR [...] 8 AM CDT 11/05/2024 10:56 AM CDT us Gwen Lau MD LAB BLOOD ORDERABLES Elena l Result Performing Organization Address City/[facility]/ZIP Co de Phone Number [address] [place] [address] * Creatinine (11/05/2024 10:38 AM CDT) Creatinine 1.06 0.80 - 1.30 mg/dL Blood 11/05/2024 10:3 8 AM CDT 11/05/2024 10:56 AM CDT Gwen Lau MD LAB BLOOD ORDERABLES Elena l Result Performing Organization Address [facility] Co de Phone Number [facility] [address] [place] [address] * eGFR (11/05/2024 3:03 AM CDT) Pathologist [facility] eGFR 66 >=60 mL/min/1. 73 m2 Comment: [...] ORDERABLES Final Re sult Performing Organization Address City/[facility]/ZIP Co de Phone Number [address] [place] [address] * Differential, auto (11/05/2024 3:03 AM CDT) [facility] Neutrophil abs 3.24 1.50 - 6.50 K/cumm Imm gran abs 0.04 0.00 - 0.10 K/cumm [facility] Lymphocyte abs 1.48 0.80 - 3.30 K/cumm [facility] Monocyte abs 0.60 0.20 - 0.80 K/cumm [facility] Eosinophil abs 0.09 0.00 - 0.50 K/cumm [facility] Basophil abs 0.01 0.00 - 0.10 K/cumm [facility] Neutrophil pct 59.4 % [facility] Comment: Interpretive Data Percent cell count reference ranges are not reported, since discordance with absolute values may lead to misinterpretation of CBC data. Current Interpretive Data was last revised on 2017. Imm gran pct 0.7 % [facility] Comment: Interpretive Data Percent cell count reference ranges are not reported, since discordance with absolute values may lead to misinterpretation of CBC data. Current Interpretive Data was last revised on 2017. Lymphocyte pct 27.1 % [facility] Comment: Interpretive Data Percent cell count reference ranges are not reported, since discordance with absolute values may lead to misinterpretation of CBC data. Current Interpretive Data was last revised on 2017. Monocyte pct 11.0 % [facility] Comment: Interpretive Data Percent cell count reference ranges are not reported, since discordance with absolute values may lead to misinterpretation of CBC data. Current Interpretive Data was last revised on 2017. Eosinophil pct 1.6 % [facility] Comment: Interpretive Data Percent cell count reference ranges are not reported, since discordance with absolute values may lead to misinterpretation of CBC data. Current Interpretive Data was last revised on 2017. Basophil pct 0.2 % [facility] Comment: Interpretive Data Percent cell count reference ranges are not reported, since discordance with absolute values may lead to misinterpretation of CBC data. Current Interpretive Data was last revised on 2017. Blood 11/05/2024 3:03 AM CDT 11/05/2024 3:09 AM CDT us Yovani Zeng NP LAB BLOOD ORDERABLES Final Re sult [place] [address] [facility] [address] Department [place] [address] * (ABNORMAL) CBC with auto differential (11/05/2024 3:03 AM CDT) [facility] WBC 5.46 3.80 - 9.90 K/cumm Hgb 13.6 13.0 - 17.5 g/dL [facility] Hct 40.8 38.9 - 50.3 % [facility] Plt 310 150 - 400 K/cumm [facility] MPV 8.9(L) 9.1 - 12.3 fL [facility] RBC 5.29 4.30 - 5.80 M/cumm [facility] MCV 77.1(L) 81.3 - 96.4 fL [facility] MCH 25.7(L) 27.1 - 33.3 pg [facility] MCHC 33.3 32.3 - 35.7 g/dL [facility] RDW CV 15.9(H) 11.1 - 14.9 % [facility] RDW SD 43.7 35.7 - 48.1 fL [facility] NRBC abs 0.00 0.00 - 0.01 K/cumm [facility] Blood 11/05/2024 3:03 AM CDT 11/05/2024 3:09 AM CDT us Yovani Zeng NP LAB BLOOD ORDERABLES Final Re sult [facility] [address] [facility] Department [place] [address] * (ABNORMAL) Hepatic function panel (11/05/2024 3:03 AM CDT) [facility] Bilirubin, total 0.2 0.1 - 1.2 mg/dL Bilirubin, direct 0.1 0.1 - 0.3 mg/dL [facility] Protein, pl 7.0 6.5 - 8.5 g/dL [facility] Albumin 3.6 3.5 - 5.0 g/dL [facility] Alk phos 141(H) 40 - 130 Units/L [facility] ALT 22 7 - 55 Units/L [facility] AST 40 10 - 50 Units/L [facility] Blood 11/05/2024 3:03 AM CDT 11/05/2024 3:09 AM CDT Yovani Zeng LAB BLOOD ORDERABLES Final Re sult Performing Organization Address City/[facility]/ZIP Co de Phone Number [place] [address] [facility] [place] [address] * (ABNORMAL) Basic metabolic panel (11/05/2024 3:03 AM CDT) [facility] Sodium 134(L) 135 - 145 mmol/L Potassium, pl 4.1 3.3 - 4.9 mmol/L [facility] Chloride 97 97 - 110 mmol/L [facility] CO2 27 22 - 32 mmol/L [facility] Anion gap 10 2 - 15 mmol/L [facility] BUN 16 6 - 25 mg/dL [facility] Creatinine 1.31(H) 0.80 - 1.30 mg/dL [facility] Glucose 85 70 - 199 mg/dL [facility] Comment: Interpretive Data Fasting glucose >/= 126 [...] 2022. Calcium 9.3 8.5 - 10.3 mg/dL [facility] Blood 11/05/2024 3:03 AM CDT 11/05/2024 3:09 AM CDT Yovani Zeng LAB BLOOD ORDERABLES Final Re sult Performing Organization Address City/[facility]/ZIP Co de Phone Number [place] [address] [facility] [place] [address] * eGFR (11/04/2024 4:14 AM CDT) [facility] eGFR >90 >=60 mL/min/1. 73 m2 Comment: [...] NP LAB BLOOD ORDERABLES Final Re sult [facility] [address] [facility] [address] Department [place] [address] * Differential, auto (11/04/2024 4:14 AM CDT) Pathologist [facility] Neutrophil abs 2.97 1.50 - 6.50 K/cumm Imm gran abs 0.02 0.00 - 0.10 K/cumm [facility] Lymphocyte abs 1.52 0.80 - 3.30 K/cumm [facility] Monocyte abs 0.61 0.20 - 0.80 K/cumm [facility] Eosinophil abs 0.07 0.00 - 0.50 K/cumm [facility] Basophil abs 0.02 0.00 - 0.10 K/cumm [facility] Neutrophil pct 57.0 % [facility] Comment: Interpretive Data Percent cell count reference ranges are not reported, since discordance with absolute values may lead to misinterpretation of CBC data. Current Interpretive Data was last revised on 2017. Imm gran pct 0.4 % [facility] Comment: Interpretive Data Percent cell count reference ranges are not reported, since discordance with absolute values may lead to misinterpretation of CBC data. Current Interpretive Data was last revised on 2017. Lymphocyte pct 29.2 % [facility] Comment: Interpretive Data Percent cell count reference ranges are not reported, since discordance with absolute values may lead to misinterpretation of CBC data. Current Interpretive Data was last revised on 2017. Monocyte pct 11.7 % [facility] Comment: Interpretive Data Percent cell count reference ranges are not reported, since discordance with absolute values may lead to misinterpretation of CBC data. Current Interpretive Data was last revised on 2017. Eosinophil pct 1.3 % [facility] Comment: Interpretive Data Percent cell count reference ranges are not reported, since discordance with absolute values may lead to misinterpretation of CBC data. Current Interpretive Data was last revised on 2017. Basophil pct 0.4 % [facility] Comment: Interpretive Data Percent cell count reference ranges are not reported, since discordance with absolute values may lead to misinterpretation of CBC data. Current Interpretive Data was last revised on 2017. Blood 11/04/2024 4:14 AM CDT 11/04/2024 4:26 AM CDT Yovani Zeng NP LAB BLOOD ORDERABLES Final Re sult [facility] [address] [facility] Department of Laboratories [place], [place] [id number] * (ABNORMAL) CBC with auto differential (11/04/2024 4:14 AM CDT) WBC 5.21 3.80 - 9.90 K/cumm Hgb 13.2 13.0 - 17.5 g/dL [facility] Hct 39.4 38.9 - 50.3 % [facility] Plt 271 150 - 400 K/cumm [facility] MPV 9.2 9.1 - 12.3 fL [facility] RBC 5.13 4.30 - 5.80 M/cumm [facility] MCV 76.8(L) 81.3 - 96.4 fL [facility] MCH 25.7(L) 27.1 - 33.3 pg [facility] MCHC 33.5 32.3 - 35.7 g/dL [facility] RDW CV 15.5(H) 11.1 - 14.9 % [facility] RDW SD 42.6 35.7 - 48.1 fL [facility] NRBC abs 0.00 0.00 - 0.01 K/cumm [facility] Blood 11/04/2024 4:14 AM CDT 11/04/2024 4:26 AM CDT Yovani Zeng NP LAB BLOOD ORDERABLES Final Re sult [address] [employer] [place] [address] * Folate (11/04/2024 4:14 AM CDT) Pathologist [facility] Folic acid 6.4 >=5.0 ng/mL Blood 11/04/2024 4:14 AM CDT 11/04/2024 4:26 AM CDT Gwen Lau MD LAB BLOOD ORDERABLES Elena l Result Performing Organization Address City/[facility]/ZIP Co de Phone Number [address] [employer] [place] [address] * (ABNORMAL) Hepatic function panel (11/04/2024 4:14 AM CDT) Bilirubin, total 0.3 0.1 - 1.2 mg/dL Bilirubin, direct 0.2 0.1 - 0.3 mg/dL [facility] Protein, pl 7.0 6.5 - 8.5 g/dL [facility] Albumin 3.5 3.5 - 5.0 g/dL [facility] Alk phos 137(H) 40 - 130 Units/L [facility] ALT 19 7 - 55 Units/L [facility] AST 33 10 - 50 Units/L [facility] Blood 11/04/2024 4:14 AM CDT 11/04/2024 4:26 AM CDT Yovani Zeng NP LAB BLOOD ORDERABLES Final Re sult Performing Organization Address City/[facility]/ZIP Co de Phone Number [facility] [place] [address] * (ABNORMAL) Basic metabolic panel (11/04/2024 4:14 AM CDT) Sodium 132(L) 135 - 145 mmol/L Potassium, pl 4.6 3.3 - 4.9 mmol/L [facility] Comment:Delta - Results Revi ewed Chloride 97 97 - 110 mmol/L [facility] CO2 26 22 - 32 mmol/L [facility] Anion gap 9 2 - 15 mmol/L [facility] BUN 10 6 - 25 mg/dL [facility] Creatinine 0.85 0.80 - 1.30 mg/dL [facility] Glucose 99 70 - 199 mg/dL [facility] Comment: Interpretive Data Fasting glucose >/= 126 [...] 2022. Calcium 9.2 8.5 - 10.3 mg/dL [facility] Blood 11/04/2024 4:14 AM CDT 11/04/2024 4:26 AM CDT Yovani Zeng NP LAB BLOOD ORDERABLES Final Re sult Performing Organization Address City/[facility]/ZIP Co de Phone Number [place] [address] [facility] [place] [address] * XR Chest 1 View (11/03/2024 12:45 PM CDT) Anatomical Region Laterality Modality Body, Chest N/A Computed Radiogr aphy 11/03/2024 12:5 6 PM CDT Narrative 11/03/2024 12:57 PM CDT EXAM DESCRIPTION: XR CHEST 1 VIEW REASON FOR STUDY: cough, H/o Latent Tb-completed treatement x 9 months. 5 day history of cough, non productive, suspected emphysema, custodial smoker Patient to ED yesterday after fall from prior to arrival, today patient has new [...] Rey Irene M.D. NS T: Report ID: [id number] Reading Location: [id number] Procedure Note Rey Irene MD - 11/03/2024 EXAM DESCRIPTION: XR CHEST 1 VIEW REASON FOR STUDY: cough, H/o Latent Tb-completed treatement x 9 months. 5day history of cough, non productive, suspected emphysema, custodial smoker Patient to ED yesterday after fall from prior to arrival, today patient has new [...] signed by Rey MCCLAIN T: Report ID: [id number] Reading Location: [place] [address] Gwen Lau MD IMG XR PROCEDURES Final [...] LAB BLOOD ORDERABLES Final Re sult [place] [address] [facility] [address] Department [place] [address] * Differential, auto (11/03/2024 3:08 AM CDT) Neutrophil abs 3.6 1.5 - 6.5 K/cumm Imm gran abs 0.0 0.0 - 0.1 K/cumm [facility] Lymphocyte abs 1.7 0.8 - 3.3 K/cumm [facility] Monocyte abs 0.7 0.2 - 0.8 K/cumm [facility] Eosinophil abs 0.1 0.0 - 0.5 K/cumm [facility] Basophil abs 0.0 0.0 - 0.1 K/cumm [facility] Neutrophil pct 59.4 % [facility] Comment: Interpretive Data Percent cell count reference ranges are not reported, since discordance with absolute values may lead to misinterpretation of CBC data. Current Interpretive Data was last revised on 2017. Imm gran pct 0.2 % [facility] Comment: Interpretive Data Percent cell count reference ranges are not reported, since discordance with absolute values may lead to misinterpretation of CBC data. Current Interpretive Data was last revised on 2017. Lymphocyte pct 27.4 % [facility] Comment: Interpretive Data Percent cell count reference ranges are not reported, since discordance with absolute values may lead to misinterpretation of CBC data. Current Interpretive Data was last revised on 2017. Monocyte pct 11.6 % [facility] Comment: Interpretive Data Percent cell count reference ranges are not reported, since discordance with absolute values may lead to misinterpretation of CBC data. Current Interpretive Data was last revised on 2017. Eosinophil pct 1.2 % [facility] Comment: Interpretive Data Percent cell count reference ranges are not reported, since discordance with absolute values may lead to misinterpretation of CBC data. Current Interpretive Data was last revised on 2017. Basophil pct 0.2 % [facility] Comment: Interpretive Data Percent cell count reference ranges are not reported, since discordance with absolute values may lead to misinterpretation of CBC data. Current Interpretive Data was last revised on 2017. Blood 11/03/2024 3:08 AM CDT 11/03/2024 3:29 AM CDT us Yovani Zeng NP LAB BLOOD ORDERABLES Final Re sult [place] [address] [facility] [place] [address] * (ABNORMAL) Iron profile w/ IBC (11/03/2024 3:08 AM CDT) [facility] Iron 101 50 - 150 mcg/dL TIBC 180(L) 250 - 400 mcg/dL [facility] Transferrin saturation 56(H) 20 - 50 % [facility] Blood 11/03/2024 3:08 AM CDT 11/03/2024 3:30 AM CDT us Gwen Lau MD LAB BLOOD ORDERABLES Elena l Result Performing Organization Address City/[facility] Co de Phone Number [facility] [address] [place] [address] * (ABNORMAL) CBC with auto differential (11/03/2024 3:08 AM CDT) [facility] WBC 6.1 3.8 - 9.9 K/cumm Hgb 11.6(L) 13.0 - 17.5 g/dL [facility] Hct 35.3(L) 38.9 - 50.3 % [facility] Plt 249 150 - 400 K/cumm [facility] MPV 9.2 9.1 - 12.3 fL [facility] RBC 4.51 4.30 - 5.80 M/cumm [facility] MCV 78.3(L) 81.3 - 96.4 fL [facility] MCH 25.7(L) 27.1 - 33.3 pg [facility] MCHC 32.9 32.3 - 35.7 g/dL [facility] RDW CV 15.9(H) 11.1 - 14.9 % [facility] RDW SD 44.7 35.7 - 48.1 fL [facility] NRBC abs 0.00 0.00 - 0.01 K/cumm [facility] Blood 11/03/2024 3:08 AM CDT 11/03/2024 3:29 AM CDT us Yovani Zeng NP LAB BLOOD ORDERABLES Final Re sult Performing Organization Address City/[facility]/ZIP Co de Phone Number [place] [address] [place] [address] * Phosphorus (11/03/2024 3:08 AM CDT) [facility] Phosphorus, pl 4.3 2.3 - 4.5 mg/dL Blood 11/03/2024 3:08 AM CDT 11/03/2024 3:30 AM CDT Gwen Lau MD LAB BLOOD ORDERABLES Elena l Result Performing Organization Address City/[facility]/ZIP Co de Phone Number [place] [address] [place] [address] * Magnesium (11/03/2024 3:08 AM CDT) [facility] Magnesium 1.9 1.4 - 2.5 mg/dL Blood 11/03/2024 3:08 AM CDT 11/03/2024 3:30 AM CDT Gwen Lau MD LAB BLOOD ORDERABLES Elena l Result Performing Organization Address City/[facility]/ZIP Co de Phone Number [address]ESSICA[address] [place] [address] * (ABNORMAL) Ferritin (11/03/2024 3:08 AM CDT) [facility] Ferritin 481(H) 30 - 400 ng/mL Blood 11/03/2024 3:08 AM CDT 11/03/2024 3:30 AM CDT Gwen Lau MD LAB BLOOD ORDERABLES Elena l Result Performing Organization Address City/[facility]/ZIP Co de Phone Number [address] [place] [address] * Vitamin B12 (11/03/2024 3:08 AM CDT) [facility] Vitamin B12 370 230 - 1,250 pg/mL Blood 11/03/2024 3:08 AM CDT 11/03/2024 3:30 AM CDT Gwen Lau MD LAB BLOOD ORDERABLES Elena l Result Performing Organization Address [facility]/ZIP Co de Phone Number [address] [place] [address] * (ABNORMAL) Hepatic function panel (11/03/2024 3:08 AM CDT) [facility] Bilirubin, total 0.6 0.1 - 1.2 mg/dL Bilirubin, direct 0.3 0.1 - 0.3 mg/dL [facility] Protein, pl 6.3(L) 6.5 - 8.5 g/dL [facility] Albumin 3.2(L) 3.5 - 5.0 g/dL [facility] Alk phos 135(H) 40 - 130 Units/L [facility] ALT 21 7 - 55 Units/L [facility] AST 40 10 - 50 Units/L [facility] Blood 11/03/2024 3:08 AM CDT 11/03/2024 3:30 AM CDT Yovani Zeng NP LAB BLOOD ORDERABLES Final Re sult Performing Organization Address [facility] Co de Phone Number [address] [place] [address] * (ABNORMAL) Basic metabolic panel (11/03/2024 3:08 AM CDT) [facility] Sodium 134(L) 135 - 145 mmol/L Potassium, pl 3.1(L) 3.3 - 4.9 mmol/L [facility] Chloride 96(L) 97 - 110 mmol/L [facility] CO2 29 22 - 32 mmol/L [facility] Anion gap 9 2 - 15 mmol/L [facility] BUN 6 6 - 25 mg/dL [facility] Creatinine 1.04 0.80 - 1.30 mg/dL [facility] Glucose 110 70 - 199 mg/dL [facility] Comment: Interpretive Data Fasting glucose >/= 126 [...] 2022. Calcium 8.8 8.5 - 10.3 mg/dL [facility] Blood 11/03/2024 3:08 AM CDT 11/03/2024 3:30 AM CDT [facility] BLOOD ORDERABLES Final Re sult Performing Organization Address [facility] Co de Phone Number [address] [employer] [place] [address] * Hepatitis C antibody Blood (11/02/2024 4:27 [...] 4:27 PM CDT 11/02/2024 5:02 PM CDT [facility] LAB MICROBIOLOGY - GENERAL OR DERABLES Final Result Performing Organization Address [facility] Co de Phone Number [facility] [employer] [facility] Department [place] [address] * eGFR (11/02/2024 9:48 AM CDT) Pathologist [facility] eGFR >90 >=60 mL/min/1. 73 m2 Comment: [...] SIMMONS LAB BLOOD ORDERABLES Final Re sult [place] [address] [facility] [place] [address] * Differential, auto (11/02/2024 9:48 AM CDT) Pathologist [facility] Neutrophil abs 4.6 1.5 - 6.5 K/cumm Imm gran abs 0.0 0.0 - 0.1 K/cumm [facility] Lymphocyte abs 1.4 0.8 - 3.3 K/cumm [facility] Monocyte abs 0.8 0.2 - 0.8 K/cumm [facility] Eosinophil abs 0.0 0.0 - 0.5 K/cumm [facility] Basophil abs 0.0 0.0 - 0.1 K/cumm [facility] Neutrophil pct 67.5 % [facility] Comment: Interpretive Data Percent cell count reference ranges are not reported, since discordance with absolute values may lead to misinterpretation of CBC data. Current Interpretive Data was last revised on 2017. Imm gran pct 0.4 % [facility] Comment: Interpretive Data Percent cell count reference ranges are not reported, since discordance with absolute values may lead to misinterpretation of CBC data. Current Interpretive Data was last revised on 2017. Lymphocyte pct 20.1 % [facility] Comment: Interpretive Data Percent cell count reference ranges are not reported, since discordance with absolute values may lead to misinterpretation of CBC data. Current Interpretive Data was last revised on 2017. Monocyte pct 11.5 % [facility] Comment: Interpretive Data Percent cell count reference ranges are not reported, since discordance with absolute values may lead to misinterpretation of CBC data. Current Interpretive Data was last revised on 2017. Eosinophil pct 0.4 % [facility] Comment: Interpretive Data Percent cell count reference ranges are not reported, since discordance with absolute values may lead to misinterpretation of CBC data. Current Interpretive Data was last revised on 2017. Basophil pct 0.1 % [facility] Comment: Interpretive Data Percent cell count reference ranges are not reported, since discordance with absolute values may lead to misinterpretation of CBC data. Current Interpretive Data was last revised on 2017. Blood 11/02/2024 9:48 AM CDT 11/02/2024 9:59 AM CDT Yana SIMMONS LAB BLOOD ORDERABLES Final Re sult [place] [address] [facility] Department of Laboratories [place], [place] [id number] * (ABNORMAL) CBC with auto differential (11/02/2024 9:48 AM CDT) WBC 6.9 3.8 - 9.9 K/cumm Hgb 12.0(L) 13.0 - 17.5 g/dL [facility] Hct 36.4(L) 38.9 - 50.3 % [facility] Plt 245 150 - 400 K/cumm [facility] MPV 8.9(L) 9.1 - 12.3 fL [facility] RBC 4.71 4.30 - 5.80 M/cumm [facility] MCV 77.3(L) 81.3 - 96.4 fL [facility] MCH 25.5(L) 27.1 - 33.3 pg [facility] MCHC 33.0 32.3 - 35.7 g/dL [facility] RDW CV 15.6(H) 11.1 - 14.9 % [facility] RDW SD 43.8 35.7 - 48.1 fL [facility] NRBC abs 0.00 0.00 - 0.01 K/cumm [facility] Blood 11/02/2024 9:48 AM CDT 11/02/2024 9:59 AM CDT Yana SIMMONS LAB BLOOD ORDERABLES Final Re sult Performing Organization Address [facility] Co de Phone Number [address] [employer] [place] [address] * Ethanol (11/02/2024 9:48 AM CDT) Pathologist [facility] Ethanol <10 <=10 mg/dL Comment: Interpretive Data Legal limit of intoxication > or = 80 mg/dL Levels > or = 400 mg/dL are potentially TOXIC. Current interpretive data was last revised on 2018. Blood 11/02/2024 9:48 AM CDT 11/02/2024 9:59 AM CDT Yana SIMMONS LAB BLOOD ORDERABLES Final Re sult Performing Organization Address [facility] Co de Phone Number [address] [place] [address] * (ABNORMAL) Comprehensive metabolic panel (11/02/2024 9:48 AM CDT) Pathologist [facility] Sodium 137 135 - 145 mmol/L Potassium, pl 3.3 3.3 - 4.9 mmol/L [facility] Chloride 98 97 - 110 mmol/L [facility] CO2 30 22 - 32 mmol/L [facility] Anion gap 9 2 - 15 mmol/L [facility] BUN 4(L) 6 - 25 mg/dL [facility] Creatinine 0.82 0.80 - 1.30 mg/dL [facility] Glucose 90 70 - 199 mg/dL [facility] Comment: Interpretive Data Fasting glucose >/= 126 [...] 2022. Calcium 8.9 8.5 - 10.3 mg/dL [facility] Bilirubin, total 1.2 0.1 - 1.2 mg/dL [facility] Protein, pl 7.2 6.5 - 8.5 g/dL [facility] Albumin 3.7 3.5 - 5.0 g/dL [facility] Alk phos 148(H) 40 - 130 Units/L [facility] ALT 24 7 - 55 Units/L [facility] AST 67(H) 10 - 50 Units/L [facility] Blood 11/02/2024 9:48 AM CDT 11/02/2024 9:59 AM CDT Yana SIMMONS LAB BLOOD ORDERABLES Final Re sult [facility] [address] [facility] [place] [address] * CT Lumbar Spine WO [...] by Noe Rob M.D. T: Report ID: [id number] Reading Location: [id number] Procedure Note Noe Rob Jr., MD - [...] by Noe Rob M.D. T: Report ID: [id number] Reading Location: [id number] Yana SIMMONS IMG CT PROCEDURES Final Resul [...] by Noe Rob M.D. T: Report ID: [id number] Reading Location: [id number] Procedure Note Noe Rob Jr., MD - 11/02/2024 EXAM DESCRIPTION: CT CERVICAL SPINE WO CONTRAST REASON FOR STUDY: Neck trauma, uncomplicated (NEXUS/CCR neg) ([id number]) from home by EMS. States he was [...] by Noe Rob M.D. T: Report ID: [id number] Reading Location: [place] [address] PROCEDURES Final Resul [...] by Noe Rob M.D. T: Report ID: [id number] Reading Location: [id number] Procedure Note Noe Rob Jr., MD - [...] by Noe Rob M.D. T: Report ID: [id number] Reading Location: [id number] Yana Peterson IRIS IMG CT PROCEDURES Final [...] by Noe Rob M.D. T: Report ID: [id number] Reading Location: [id number] Procedure Note Noe Rob Jr., MD - [...] by Noe Rob M.D. T: Report ID: [id number] Reading Location: [id number] Yana SIMMONS IMG CT PROCEDURES Final Resul t * (ABNORMAL) Urinalysis reflex to microscopic and culture Urine (01/04/2024 7:22 AM CDT) Color, ur Other(A) Yellow Clarity, ur Cloudy(A) Clear [place] Specific gravity, ur 1.021 1.003 - 1.030 [place] pH, urine 7.0 [facility] Comment: Interpretive Data U rine pH is affected by diet, medications, systemic acid-base disturbances, and renal tubular function. pH may affect urinary stone formation. For example, urine pH below 6.0 may help reduce the tendency for calcium phosphate stones and pH greater than 6.0 may reduce the tendency for uric acid stone formation. Source: [facility] [place] Current Interpretive Data was last revised on 2017 Protein, ur ql 2+(A) Negative [facility] Glucose, ur ql Negative Negative [facility] Ketones, ur Negative Negative [facility] Bilirubin, ur Negative Negative [facility] Blood, ur 3+(A) Negative [facility] Urobilinogen, ur <2.0 <2.0 mg/dL [place] Nitrite, ur Positive(A) Negative [place] Leukocyte esterase, ur 4+(A) Negative [place] UA reflex comment Reflex to microscopic UA will be performed. [place] Urine 01/04/2024 7:22 AM CDT 01/04/2024 7:30 AM CDT Pedro Ochoa MD LAB MICROBIOLOGY - GENERAL ORDERABLES Final Result [place] [address] [facility] Department [place] [address] * (ABNORMAL) Lipid panel (08/13/2023 5:23 AM MANAGER UNIT) Cholesterol 159 30 - 199 mg/dL [place] Comment: Interpretive Data Ages < or = [...] revised on 2018. Triglycerides 308(H) <=149 mg/dL [place] Comment: Interpretive Data Ages < or = [...] 2 [place] Blood 08/13/2023 5:23 AM MANAGER UNIT 08/13/2023 5:25 AM MANAGER UNIT us Scotty Gill MD LAB BLOOD ORDERABLES Final Result [place] [address] [facility] [place] [address] * RPR Blood (02/14/2023 5:08 AM CDT) Pathologist [facility] RPR Nonreactive Nonreactive [place] Comment:Testing performed by : [facility], [address] [facility] [place] [address] Blood 02/14/2023 5:08 AM CDT 02/14/2023 8:06 AM CDT Teresa Hernandez DO LAB MICROBIOLOGY - GENERAL DANNI BRASWELL Final Result [place] [address] [facility] [place] [address] * (ABNORMAL) TB test, quantiferon gold (08/31/2022 3:10 PM MANAGER UNIT) [facility] Quantiferon TB Gold Positive( A) Negative [place] Comment: Interferon-gamma response to M. tuberculosis antigens detected, suggesting infection with M. tuberculosis. Positive results in patients at low-risk for tuberculosis should be interpreted with caution and repeat testing on a new sample should be considered as recommended by the 2017 ATS/IDSA/CDC Clinical Practice Guidelines for Diagnosis of Tuberculosis in Adults and Children [Lewinsohn DM et. al. Clin. Infect. Dis. 2017;64(2):111-115]. False positive results may occur in patients with prior infection with M. marinum, M. szulgai or M. kansasii. The reference range for the 'TB1 Ag minus Nil Result' and 'TB2 Ag minus Nil Result' is an Interferon-gamma level <0.35 IU/mL. TB-Nil 1.65 IUnits/mL [place] TB2-Nil 1.81 IUnits/mL [place] Mitogen-Nil 9.97 IUnits/mL [place] NIL 2.32 IUnits/mL [place] Comment: Test Performed by: [facility] [address] [place] [address] Healthcare Administration Internship: Yung Henning M.D. Ph.D.; CLIA# [id number] Blood 08/31/2022 3:10 PM MANAGER UNIT 08/31/2022 3:19 PM MANAGER UNIT us Cody Medina MD LAB BLOOD ORDERABLES Final R esult [facility] [address] [place] [address] * Hepatitis panel, acute (08/31/2022 9:01 AM MANAGER UNIT) Pathologist [facility] Hep A IgM Nonreactive Nonreactive [facility] Comment: Interpretive Data: If Hep A IgM Ab is reported as Equivocal, a new sample should be drawn in two weeks for testing. Current interpretive data was last revised on 19. Hep B core IgM Nonreactive Nonreactive [facility] Comment: Interpretive Data If HepB Core IgM Ab is reported as Equivocal, a new sample should be drawn in two weeks for testing. Current interpretive data was last revised on 19. Hep C Ab Nonreactive Nonreactive [facility] Comment: Interpretive Data Nonreactive: Antibodies to HCV [...] last revised on 2019. HepBsAg Nonreactive Nonreactive [facility] Blood 08/31/2022 9:01 AM MANAGER UNIT 08/31/2022 9:33 AM MANAGER UNIT us Scotty Gill MD LAB MICROBIOLOGY - NERAL ORDERABLES Final Result [address]ESS[address] [place] [address] * Hemoglobin A1c (08/31/2022 9:01 AM MANAGER UNIT) Pathologist [facility] Hgb A1C 5.0 4.0 - 5.6 % [facility] Estimated Average Glucose 97 mg/dL [place] Comment: The ADA recommends reporting an estimated Average Glucose (eAG) with all Hemoglobin A1c results using the equation derived from a study of 507 normal and diabetic adults. Minority populations were underrepresented and children were not included. (Diabetes Care 31:8728-8038, 2008). The eAG is not equivalent to a fasting glucose. Blood 08/31/2022 9:01 AM MANAGER UNIT 08/31/2022 9:33 AM MANAGER UNIT us Scotty Gill MD LAB BLOOD ORDERABLES Final Result [place] [address] [facility] [place] [address] from Last 3 Months or Most Recently Relevant to Health Maintenance Insurance [facility] [place] [facility] [place] Advance Directives For more information, please contact: [phone] * Full Code (Latest Code Status on [...] 2:20 AM 09/10/2022 6:49 PM Care Teams Sausage Wrapper Relationship Specialty Start Date End Date Nelly Hernandez MD [address] [place] [id number] PCP - General Family Medicine 08/14/23
--- OUTSIDE RECORDS SUMMARY | 2024-11-18 09:04 | XMS_ITS ---
Author Organization [facility]ly [facility] Address [address] [place] [address] Care Team Providers Care Director And Professor Name Role Phone Yue Solis Primary Care Provider [phone] REASON FOR VISIT Back Pain Social History Sex Assigned At : Social History Observation Description Sex Assigned At Male Encounters Encounter Location Date Provider Diagnosis [place] [address] [facility] [place] [address] 11/16/2024 Yue Solis Plan Of Treatment Next Appt Details Provider Name:Ryan Hitchcock, 11/19/2024 09:40:00 AM, [address], [place], [address], Progress Notes * Addy JOHNDOB:1975 (49 yo M)Acc No.[id number]:11/16/2024 UNLOCKED PROGRESS NOTE Progress Notes Patient: Addy EGAN Provider: Darien Solis APRN :1975 A ge:49 Y S ex:Male Date:11/16/2024 Address:[address] [place], [place] [id number] Subjective: * Chief Complaints: * 1 . Back Pain. * Medical History: Objective: * Vitals: Assessment: Plan: * Treatment: * * Electronic signature of Ysesenia Solis , [id number] on 11/18/2024 at 09:04 AM CDT Sign off status: Pending * Provider: Darien Solis APRN Date: 0 11/16/2024 Generated for Leon londono/Maribel/Crystal on: 0 11/18/2024 09:04 AM CDT
[2024-11-18 09:17] LABS: Add Urine Microscopic? YES; Appearance Urine Clear (Clear); Bacteria Urine None Seen /hpf; Bilirubin Urine Negative (Negative); Blood Urine Negative (Negative); Color Urine Yellow (Yellow); Glucose Urine UA Negative (Negative); Ketones Urine Trace mg/dL (Negative); Leukocyte Esterase Ur Trace LEU/UL (Negative); Mucus Urine Present /lpf; Need Manual Microscopic Reviewed; Nitrate Urine Negative (Negative); Protein Urine Negative (Negative); RBC Urine 0-2 /hpf (0-2); Specific Grav Ur 1.016 (1.001-1.035); Squamous Epithelial Cell Urine Occasional /hpf (Few); Urobilinogen Urine 0.2 mg/dL (<2.0); pH Urine 5.5 (5.0-9.0)
[2024-11-18 09:18] LABS: Basophils Percent Auto 0.5 % (0.2-1.2); Eosinophils Absolute Auto 0.2 K/mm3 (0-0.3); Eosinophils Percent Auto 3.3 % (0-4.4); Hematocrit 37.6 % (42.0-52.0); Hemoglobin 12.4 g/dL (14.0-18.0); Immature Granulocyte Absolute 0.04 K/mm3 (0.00-0.031); Immature Granulocyte Percent A 0.7 % (0-0.5); Lymphocytes Absolute Auto 1.33 K/mm3 (0.9-3.2); Lymphocytes Percent Auto 24.1 % (18.3-44.2); Mean Corpuscular Hemoglobin 25.4 pg (26-34); Mean Corpuscular Volume 76.9 fl (80-100); Mean Platelet Volume 8.4 fl (7.4-10.4); Monocytes Absolute Auto 0.7 K/mm3 (0.1-0.6); Monocytes Percent Auto 11.9 % (2.6-8.5); Neutrophils Absolute Auto 3.3 K/mm3 (1.3-6.7); Neutrophils Percent Auto 59.5 % (45.5-73.1); Platelet Count Result 369 k/mm3 (150-375); Red Blood Count 4.89 M/mm3 (4.6-6.20); Red Cell Distribution Width 16.5 % (11.5-14.5); White Blood Count 5.5 K/mm3 (4.5-10.0)
[2024-11-18 09:48] LABS: Alanine Aminotransferase 39 U/L (6-50); Albumin Level 4.1 g/dL (3.5-5.1); Alkaline Phosphatase 74 U/L (38-126); Anion Gap 9 mmol/L (4-12); Aspartate Amino Transferase 35 U/L (17-59); Bilirubin,Total 0.2 mg/dL (0.2-1.3); Blood Urea Nitrogen 8 mg/dL (9-20); Calcium 9.4 mg/dL (8.4-10.2); Carbon Dioxide 28 mmol/L (22-30); Chloride 99 mmol/L (98-107); Estimated CRCL calculation 75 ml/min; Estimated Glomerular Filt Rate > 60; Glucose 89 mg/dL (65-110); Lipase 42 U/L (23-300); Potassium 4.3 mmol/L (3.4-5.0); Sodium 136 mmol/L (137-145)
--- NOTE | 2024-11-18 09:55 | ED.ABDPAIN ---
HPI - Abdominal Pain General Chief Complaint: Abdominal Pain Stated Complaint: right flank pain Time Seen by Provider: 11/18/24 09:02 History of Present Illness HPI narrative: 49-year-old male with history of HIV, hypertension, hyperlipidemia presents to emergency department for right flank pain that started at 4:00 a.m. this morning. Patient states the pain is intermittent and sharp in nature. He has a lidocaine to the right flank region that he put on his back this morning which has provided some improvement. He states at times the pain radiates towards his abdomen. He also states yesterday while he was showering the hot water hit his penis and caused him some discomfort. He denies penile lesions, dysuria or hematuria, history of kidney stones, scrotal or testicular pain, penile discharge. He has been sexually active with 1 partner in the past 6 months and would like to be tested for STDs. Denies fever, back injury or trauma. Related Data Home Medications ?Medication ?Instructions ?Recorded ?Confirmed ?Last Taken ?Type albuterol sulfate 90 mcg/actuation 1 puff inhalation Q4H PRN 01/27/20 Unknown History aerosol inhaler elviteg 150 mg-cob 150 mg-emtricit 1 tablet PO DAILY 01/27/20 Unknown History 200 mg-tenofo disopro 300 mg tablet (Stribild) hydrochlorothiazide 25 mg tablet 25 mg PO DAILY 01/27/20 Unknown History hydrocodone 5 mg-acetaminophen 325 1 tablet PO Q6H PRN 01/27/20 Unknown History mg tablet prednisone 20 mg tablet 20 mg PO BID 01/27/20 Unknown History ranitidine HCl 150 mg capsule mg PO DAILY 01/27/20 Unknown History trazodone 50 mg tablet 25 mg PO DAILY 01/27/20 Unknown History Allergies Allergy/AdvReac Type Severity Reaction Status Date / Time No Known Allergies Allergy Verified 11/18/24 08:44 Review of Systems Review of Systems: All systems reviewed & are unremarkable except as noted in HPI and below PMFSH Past Medical History Medical History (Updated 11/18/24 @ 11:44 by Mayra Butterfield PA-C) Asthma Acid reflux Depression Anxiety History of HIV infection Right hand pain History of hypertension History of hyperlipidemia Back injury Surgical History Surgical History History of ear surgery Exam Narrative: GENERAL: Well-appearing, well-nourished, and in no acute distress. HEAD: Normocephalic, atraumatic. EYES: EOMI. ENT: Nares clear, no rhinorrhea or epistaxis. Mucous membranes moist. NECK: Supple. BACK: No midline thoracolumbar spinous tenderness, crepitus, step-offs or deformities. Tenderness to the right CVA region CHEST: Clear to auscultation. No respiratory distress. HEART: Regular rate and rhythm. No murmur heard. Normal peripheral pulses. ABDOMEN: Soft, nontender, nondistended, normal active bowel sounds. Right-sided CVA tenderness with no overlying skin changes : Chaperoned by [place]: Uncircumcised penis, no lesions or rashes, no discharge, no testicular tenderness or masses, no edema EXTREMITIES: Normal range of motion. No edema. SKIN: Warm, dry, no rash. NEURO: No focal deficits. Alert and oriented x3 Course Vital Signs Vital signs: Vital Signs Temperature 97.3 F L 11/18/24 08:53 Pulse Rate 98 11/18/24 08:53 Respiratory Rate 18 11/18/24 08:53 Blood Pressure 113/94 H 11/18/24 08:53 Pulse Oximetry 100 11/18/24 08:53 Oxygen Delivery Room Air 11/18/24 08:53 Temperature 97.3 F L 11/18/24 08:53 Pulse Rate 80 11/18/24 11:59 Respiratory Rate 18 11/18/24 11:59 Blood Pressure 113/94 H 11/18/24 08:53 Pulse Oximetry 98 11/18/24 11:59 Oxygen Delivery Room Air 11/18/24 08:53 MDM - Abdominal Pain MDM Narrative Medical decision making narrative: 49-year-old male presents to the emergency department for atraumatic right flank pain since 4:00 a.m. this morning. Also endorsing sensitivity to his penis when exposed to hot water from the shower yesterday. See HPI for further history. Vitals are stable. Patient is afebrile and nontoxic appearing resting comfortably in exam bed. Exam is significant for the above. Lab work without leukocytosis, hemoglobin is 12.4 which is increased from prior. Chemistries are largely unremarkable. UA with trace leuk esterase, 6-10 white blood cells, no bacteria or nitrites. He denies dysuria or hematuria, will wait for urine or culture results prior to treatment. GC, chlamydia and Trichomonas or are pending. Lipase is within normal limits. CT abdomen pelvis shows significant fecal stasis within the colon, no obstructive uropathy and a normal appendix. Patient updated results. On re-evaluation he is resting comfortably in exam bed after a 2 mg dose of morphine. Suspect flank pain is due to MSK etiology. Will provide Flexeril and naproxen p.r.n.. He was also given MiraLax for constipation. I offered empiric treatment for STDs, however patient declines and agrees to check is online portal and seek treatment if tests are positive. Discussed safe sex practices, follow-up with PCP and strict ED return precautions. He is agreeable with the plan verbalized understanding. Discharged in stable condition. Lab Data 11/18/24 09:10 11/18/24 09:29 Labs: Lab Results 11/18/24 11/18/24 11/18/24 Range/Units 08:58 09:10 09:29 WBC 5.5 (4.5-10.0) K/mm3 RBC 4.89 (4.6-6.20) M/mm3 Hgb 12.4 L (14.0-18.0) g/dL Hct 37.6 L (42.0-52.0) % MCV 76.9 L (80-100) fl MCH 25.4 L (26-34) pg MCHC 33.0 (32-36) g/dl RDW 16.5 H (11.5-14.5) % Plt Count 369 (150-375) k/mm3 MPV 8.4 (7.4-10.4) fl Immature Gran % (Auto) 0.7 H (0-0.5) % Neut % (Auto) 59.5 (45.5-73.1) % Lymph % (Auto) 24.1 (18.3-44.2) % [place] % (Auto) 11.9 H (2.6-8.5) % Eos % (Auto) 3.3 (0-4.4) % Baso % (Auto) 0.5 (0.2-1.2) % Lymph # (Auto) 1.33 (0.9-3.2) K/mm3 [place] # (Auto) 0.7 H (0.1-0.6) K/mm3 Eos # (Auto) 0.2 (0-0.3) K/mm3 Baso # (Auto) 0.0 (0.0-0.1) K/mm3 Abs Immat Gran (auto) 0.04 H (0.00-0.031) K/mm3 Absolute Neuts (auto) 3.3 (1.3-6.7) K/mm3 Absolute Nucleated RBC 0.000 (0.0-0.012) K/mm3 Nucleated RBC % 0.0 (0.0-0.2) % Sodium 136 L (137-145) mmol/L Potassium 4.3 (3.4-5.0) mmol/L Chloride 99 (98-107) mmol/L Carbon Dioxide 28 (22-30) mmol/L Anion Gap 9 (4-12) mmol/L BUN 8 L (9-20) mg/dL Creatinine 1.05 (0.7-1.3) mg/dL Estim Creat Clear Calc 75 ml/min Estimated GFR > 60 (59 - ) Glucose 89 (65-110) mg/dL Calcium 9.4 (8.4-10.2) mg/dL Total Bilirubin 0.2 (0.2-1.3) mg/dL AST 35 (17-59) U/L ALT 39 (6-50) U/L Alkaline Phosphatase 74 (38-126) U/L Total Protein 7.0 (6.3-8.2) g/dL Albumin 4.1 (3.5-5.1) g/dL Lipase 42 (23-300) U/L Urine Color Yellow (Yellow) Urine Appearance Clear (Clear) Urine pH 5.5 (5.0-9.0) Ur Specific [place] 1.016 (1.001-1.035) Urine Protein Negative (Negative) mg/dL Urine Glucose (UA) Negative (Negative) mg/dL Urine Ketones Trace H (Negative) mg/dL Ur Blood (Man) Negative (Negative) Urine Nitrate Negative (Negative) Urine Bilirubin Negative (Negative) Urine Urobilinogen 0.2 (<2.0) mg/dL Add Ur Microanalysis Reviewed Leukocyte Esterase Rfl Trace H (Negative) KWESI/UL Urine RBC 0-2 (0-2) /hpf Urine WBC 6-10 H (0-3) /hpf Ur Squamous Epith Cells Occasional (Few) /hpf Urine Bacteria None seen /hpf Urine Casts 11-20 Hyaline Casts 5-9 H (None) /lpf Urine Mucus Present /lpf C. trachomatis (PCR) N. gonorrhoeae (PCR) T. vaginalis (PCR) (NOT DETECTE) 11/18/24 Range/Units 11:44 WBC (4.5-10.0) K/mm3 RBC (4.6-6.20) M/mm3 Hgb (14.0-18.0) g/dL Hct (42.0-52.0) % MCV (80-100) fl MCH (26-34) pg MCHC (32-36) g/dl RDW (11.5-14.5) % Plt Count (150-375) k/mm3 MPV (7.4-10.4) fl Immature Gran % (Auto) (0-0.5) % Neut % (Auto) (45.5-73.1) % Lymph % (Auto) (18.3-44.2) % [place] % (Auto) (2.6-8.5) % Eos % (Auto) (0-4.4) % Baso % (Auto) (0.2-1.2) % Lymph # (Auto) (0.9-3.2) K/mm3 [place] # (Auto) (0.1-0.6) K/mm3 Eos # (Auto) (0-0.3) K/mm3 Baso # (Auto) (0.0-0.1) K/mm3 Abs Immat Gran (auto) (0.00-0.031) K/mm3 Absolute Neuts (auto) (1.3-6.7) K/mm3 Absolute Nucleated RBC (0.0-0.012) K/mm3 Nucleated RBC % (0.0-0.2) % Sodium (137-145) mmol/L Potassium (3.4-5.0) mmol/L Chloride (98-107) mmol/L Carbon Dioxide (22-30) mmol/L Anion Gap (4-12) mmol/L BUN (9-20) mg/dL Creatinine (0.7-1.3) mg/dL Estim Creat Clear Calc ml/min Estimated GFR (59 - ) Glucose (65-110) mg/dL Calcium (8.4-10.2) mg/dL Total Bilirubin (0.2-1.3) mg/dL AST (17-59) U/L ALT (6-50) U/L Alkaline Phosphatase (38-126) U/L Total Protein (6.3-8.2) g/dL Albumin (3.5-5.1) g/dL Lipase (23-300) U/L Urine Color (Yellow) Urine Appearance (Clear) Urine pH (5.0-9.0) Ur Specific [place] (1.001-1.035) Urine Protein (Negative) mg/dL Urine Glucose (UA) (Negative) mg/dL Urine Ketones (Negative) mg/dL Ur Blood (Man) (Negative) Urine Nitrate (Negative) Urine Bilirubin (Negative) Urine Urobilinogen (<2.0) mg/dL Add Ur Microanalysis Leukocyte Esterase Rfl (Negative) KWESI/UL Urine RBC (0-2) /hpf Urine WBC (0-3) /hpf Ur Squamous Epith Cells (Few) /hpf Urine Bacteria /hpf Urine Casts Hyaline Casts (None) /lpf Urine Mucus /lpf C. trachomatis (PCR) Pending N. gonorrhoeae (PCR) Pending T. vaginalis (PCR) Not detected (NOT DETECTE) Imaging Data Radiologist's impression: ITS Impressions Abdomen/Pelvis CT 11/18/24 10:33 IMPRESSION: Significant fecal stasis within the colon. No obstructive uropathy. Normal appendix. Discharge Plan Discharge Clinical Impression: Screen for STD (sexually transmitted disease), Constipation, Acute right flank pain Patient Disposition: Home Condition: Stable Instructions: Antibiotic Form, Sexually Transmitted Diseases (ED), Safe Sex Practices (ED), Flank Pain (ED) Additional Instructions: You were evaluated in the emergency department for right flank pain. The CT scan shows no abnormalities other than constipation. Please take the MiraLax as directed. Your pain is likely muscular in nature, please take the muscle relaxers and anti-inflammatories as needed for pain. Additionally requesting testing for STDs. We have not received results of the tests. You need to check her online portal within the next tear to for results. If anything is positive you need to seek treatment at the ER, urgent care or with primary care. Always use condoms. Return to the emergency department if you develop a fever 100.4 or greater, you develop worsening pain, vomiting, or other concerning symptoms. Patient Language: Lao Prescriptions: New cyclobenzaprine 10 mg tablet 10 mg PO TID PRN (Reason: muscle spasm) Qty: 14 0RF lidocaine 5 % adhesive patch,medicated 1 patch topical DAILY Qty: 15 0RF Rx Instructions: leave on most painful area for up to 12 hrs. do not use more than 1 patch in a 24-hour period. naproxen 500 mg tablet 500 mg PO BID PRN (Reason: pain) Qty: 20 0RF polyethylene glycol 3350 17 gram/dose powder 17 g PO DAILY Qty: 119 0RF Discontinued naproxen 500 mg tablet 500 mg PO BID No Action albuterol sulfate 90 mcg/actuation HFA aerosol inhaler 1 puff INHALATION Q4H PRN hydrocodone-acetaminophen 5-325 mg tablet 1 tablet PO Q6H PRN Stribild [phone] mg tablet 1 tablet PO DAILY Rx Instructions: must administer with a meal/food hydrochlorothiazide 25 mg tablet 25 mg PO DAILY prednisone 20 mg tablet 20 mg PO BID ranitidine HCl 150 mg capsule PO DAILY trazodone 50 mg tablet 25 mg PO DAILY naproxen 500 mg tablet 500 mg PO BID Qty: 30 0RF methocarbamol 750 mg tablet 750 mg PO TID Qty: 30 0RF Follow-up/Referrals: UNKNOWN,DOCTOR [Primary Care Provider] -
--- OUTSIDE RECORDS SUMMARY | 2024-11-18 10:03 | XMS_ITS | Referral Summary ---
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 Name Role Phone Nelly Hernandez MD Primary Care Provide r Encounters Date Type Department Care Team Description 11/02/2024 7:59 AM CDT - 11/06/2024 9:30 AM CDT Hospital Encounter [address] [address] Darin Dailey MD [place], Gwen Trammell MD [...] day as needed for muscle spasms Active nifqujk-frk-wrjuo -tenofo DISOP (STRIBILD) [phone] mg tablet Take 1 tablet by mouth [...] tablet 09/28/19 23 2024 Discontinued(A lternate therapy) dfopoyr-kvr-aiggf -tenofo DISOP (STRIBILD) [phone] mg tabletIndications :HIV infection Take 1 tablet [...] 09/12/2022 Assessment & Plan (09/12/2022 6:59 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 PROTECTION 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): -concern for extrapulmonary infections including diskitis -follow ID consult recommendations -AFB stain with no acid-fast bacilli noted, CT chest within normal limits Polysubstance abuse 09/12/2022 Overview (09/12/2022): -monitor cows score -screen for withdrawals Discitis, unspecified spinal region 09/11/2022 Assessment & Plan (09/12/2022 6:58 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 PROTECTION ENGINEER): -s/p bone/disc biopsy by IR for follow [...] and vancomycin day 2 -pain control with [place] -start LR 125 cc/hour for 8 hours HIV (human immunodeficiency virus infection) Assessment & Plan (09/12/2022 6:58 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 PROTECTION ENGINEER): ID consult recommendations -viral load 9390 CD4 [...] drink = 0.6 oz pur e alcohol) [facility] Utilities Answer Date Recorded In the past 12 months has e [employer], gas, oil, or water [employer] threatened to shut off services in your [...] often do you attend chur ch or jain services? Never 11/03/2024 Do you belong to any clubs o r organizations such as mosque groups, unions, fraternal or athletic groups, or [...] place to sleep or slept in a custodial (including now)? No 08/14/2023 Housing Stability Vital Sign Answer David e Recorded In the last 12 months, was t here a time when you were not able to pay the mortgage or rent on time? No 11/03/2024 In the past 12 months, how m any times have you moved where you were living? 0 11/03/2024 At any time in the past 12 m [facility], were you homeless or living in a custodial (including now)? No 11/03/2024 Personal Safety Answer Date Recorded Have you ever been in or are you currently in a harmful physical or emotional relationship or is someone making you feel afraid or unsafe? Denies 11/02/2024 Sex and Gender Information Value Date Recorded Sex Assigned at Not on file Legal Sex Male 9:42 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 PROTECTION ENGINEER Gender Identity Not on file Sexual Orientation [...] CDT LIPID PANEL Routine 08/13/2023 5:23 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 PROTECTION ENGINEER RPR STAT 02/14/2023 5:08 AM CDT TB TEST, QUANTIFERON GOLD Routine 08/31/2022 3:10 PM SENIOR FIRE PROTECTION ENGINEER HEMOGLOBIN A1C Routine 08/31/2022 9:01 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 PROTECTION ENGINEER HEPATITIS PANEL, ACUTE Routine 08/31/2022 9:01 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 PROTECTION ENGINEER from Last 3 Months or Most Recently [...] LAB BLOOD ORDERABLES Final Re sult [place] [address] [facility] [place] [address] * (ABNORMAL) Differential, auto (11/06/2024 5:27 AM CDT) Neutrophil abs 7.25(H) 1.50 - 6.50 K/cumm Imm gran abs 0.04 0.00 - 0.10 K/cumm [facility] Lymphocyte abs 0.99 0.80 - 3.30 K/cumm [facility] Monocyte abs 0.89(H) 0.20 - 0.80 K/cumm [facility] Eosinophil abs 0.05 0.00 - 0.50 K/cumm [facility] Basophil abs 0.01 0.00 - 0.10 K/cumm [facility] Neutrophil pct 78.7 % [facility] Comment: Interpretive Data Percent cell count reference ranges are not reported, since discordance with absolute values may lead to misinterpretation of CBC data. Current Interpretive Data was last revised on 2017. Imm gran pct 0.4 % [facility] Comment: Interpretive Data Percent cell count reference ranges are not reported, since discordance with absolute values may lead to misinterpretation of CBC data. Current Interpretive Data was last revised on 2017. Lymphocyte pct 10.7 % [facility] Comment: Interpretive Data Percent cell count reference ranges are not reported, since discordance with absolute values may lead to misinterpretation of CBC data. Current Interpretive Data was last revised on 2017. Monocyte pct 9.6 % [facility] Comment: Interpretive Data Percent cell count reference ranges are not reported, since discordance with absolute values may lead to misinterpretation of CBC data. Current Interpretive Data was last revised on 2017. Eosinophil pct 0.5 % [facility] Comment: Interpretive Data Percent cell count reference ranges are not reported, since discordance with absolute values may lead to misinterpretation of CBC data. Current Interpretive Data was last revised on 2017. Basophil pct 0.1 % [facility] Comment: Interpretive Data Percent cell count reference ranges are not reported, since discordance with absolute values may lead to misinterpretation of CBC data. Current Interpretive Data was last revised on 2017. Blood 11/06/2024 5:27 AM CDT 11/06/2024 6:01 AM CDT Yovani Zeng SKEET OPERATOR LAB BLOOD ORDERABLES Final Re sult Performing Organization Address [facility] Co de Phone Number [address] [place] [address] * (ABNORMAL) CBC with auto differential (11/06/2024 5:27 AM CDT) WBC 9.23 3.80 - 9.90 K/cumm Hgb 13.7 13.0 - 17.5 g/dL [facility] Hct 41.8 38.9 - 50.3 % [facility] Plt 316 150 - 400 K/cumm [facility] MPV 9.3 9.1 - 12.3 fL [facility] RBC 5.33 4.30 - 5.80 M/cumm [facility] MCV 78.4(L) 81.3 - 96.4 fL [facility] MCH 25.7(L) 27.1 - 33.3 pg [facility] MCHC 32.8 32.3 - 35.7 g/dL [facility] RDW CV 16.1(H) 11.1 - 14.9 % [facility] RDW SD 45.1 35.7 - 48.1 fL [facility] NRBC abs 0.00 0.00 - 0.01 K/cumm [facility] Blood 11/06/2024 5:27 AM CDT 11/06/2024 6:01 AM CDT Yovani Zeng LAB BLOOD ORDERABLES Final Re sult Performing Organization Address [facility] de Phone Number [address] [place] [address] * Hepatic function panel (11/06/2024 5:27 AM CDT) [facility] Bilirubin, total 0.3 0.1 - 1.2 mg/dL Bilirubin, direct 0.2 0.1 - 0.3 mg/dL [facility] Protein, pl 7.8 6.5 - 8.5 g/dL [facility] Albumin 3.9 3.5 - 5.0 g/dL [facility] Alk phos 128 40 - 130 Units/L [facility] ALT 24 7 - 55 Units/L [facility] AST 36 10 - 50 Units/L [facility] Blood 11/06/2024 5:27 AM CDT 11/06/2024 6:04 AM CDT Yovani Zeng NP LAB BLOOD ORDERABLES Final Re sult [facility] [address] [facility] Department [place] [address] * (ABNORMAL) Basic metabolic panel (11/06/2024 5:27 AM CDT) [facility] Sodium 133(L) 135 - 145 mmol/L Potassium, pl 4.3 3.3 - 4.9 mmol/L [facility] Chloride 95(L) 97 - 110 mmol/L [facility] CO2 27 22 - 32 mmol/L [facility] Anion gap 11 2 - 15 mmol/L [facility] BUN 15 6 - 25 mg/dL [facility] Creatinine 1.02 0.80 - 1.30 mg/dL [facility] Glucose 69(L) 70 - 199 mg/dL [facility] Comment: Interpretive Data Fasting glucose >/= 126 [...] 2022. Calcium 9.7 8.5 - 10.3 mg/dL [facility] Blood 11/06/2024 5:27 AM CDT 11/06/2024 6:04 AM CDT Yovani Zeng NP LAB BLOOD ORDERABLES Final Re sult Performing Organization Address [facility] Co de Phone Number [address] [address] * eGFR (11/05/2024 10:38 AM CDT) eGFR [...] ORDERABLES Elena l Result Performing Organization Address City/[facility]/ZIP Co de Phone Number [address] [place] [address] * Creatinine (11/05/2024 10:38 AM CDT) Creatinine 1.06 0.80 - 1.30 mg/dL Blood 11/05/2024 10:3 8 AM CDT 11/05/2024 10:56 AM CDT Gwen Lau MD LAB BLOOD ORDERABLES Elena l Result Performing Organization Address [facility] Co de Phone Number [place] [address] [place] [address] * eGFR (11/05/2024 3:03 AM CDT) Pathologist [facility] eGFR 66 >=60 mL/min/1. 73 [...] ORDERABLES Final Re sult Performing Organization Address City/[facility]/ZIP Co de Phone Number [address] [place] [address] * Differential, auto (11/05/2024 3:03 AM CDT) [facility] Neutrophil abs 3.24 1.50 - 6.50 K/cumm Imm gran abs 0.04 0.00 - 0.10 K/cumm [facility] Lymphocyte abs 1.48 0.80 - 3.30 K/cumm [facility] Monocyte abs 0.60 0.20 - 0.80 K/cumm [facility] Eosinophil abs 0.09 0.00 - 0.50 K/cumm [facility] Basophil abs 0.01 0.00 - 0.10 K/cumm [facility] Neutrophil pct 59.4 % [facility] Comment: Interpretive Data Percent cell count reference ranges are not reported, since discordance with absolute values may lead to misinterpretation of CBC data. Current Interpretive Data was last revised on 2017. Imm gran pct 0.7 % [facility] Comment: Interpretive Data Percent cell count reference ranges are not reported, since discordance with absolute values may lead to misinterpretation of CBC data. Current Interpretive Data was last revised on 2017. Lymphocyte pct 27.1 % [facility] Comment: Interpretive Data Percent cell count reference ranges are not reported, since discordance with absolute values may lead to misinterpretation of CBC data. Current Interpretive Data was last revised on 2017. Monocyte pct 11.0 % [facility] Comment: Interpretive Data Percent cell count reference ranges are not reported, since discordance with absolute values may lead to misinterpretation of CBC data. Current Interpretive Data was last revised on 2017. Eosinophil pct 1.6 % [facility] Comment: Interpretive Data Percent cell count reference ranges are not reported, since discordance with absolute values may lead to misinterpretation of CBC data. Current Interpretive Data was last revised on 2017. Basophil pct 0.2 % [facility] Comment: Interpretive Data Percent cell count reference ranges are not reported, since discordance with absolute values may lead to misinterpretation of CBC data. Current Interpretive Data was last revised on 2017. Blood 11/05/2024 3:03 AM CDT 11/05/2024 3:09 AM CDT us Yovani Zeng NP LAB BLOOD ORDERABLES Final Re sult [place] [address] [facility] Department [place] [address] * (ABNORMAL) CBC with auto differential (11/05/2024 3:03 AM CDT) [facility] WBC 5.46 3.80 - 9.90 K/cumm Hgb 13.6 13.0 - 17.5 g/dL [facility] Hct 40.8 38.9 - 50.3 % [facility] Plt 310 150 - 400 K/cumm [facility] MPV 8.9(L) 9.1 - 12.3 fL [facility] RBC 5.29 4.30 - 5.80 M/cumm [facility] MCV 77.1(L) 81.3 - 96.4 fL [facility] MCH 25.7(L) 27.1 - 33.3 pg [facility] MCHC 33.3 32.3 - 35.7 g/dL [facility] RDW CV 15.9(H) 11.1 - 14.9 % [facility] RDW SD 43.7 35.7 - 48.1 fL [facility] NRBC abs 0.00 0.00 - 0.01 K/cumm [facility] Blood 11/05/2024 3:03 AM CDT 11/05/2024 3:09 AM CDT us Yovani Zeng NP LAB BLOOD ORDERABLES Final Re sult [facility] [address] [facility] Department [place] [address] * (ABNORMAL) Hepatic function panel (11/05/2024 3:03 AM CDT) [facility] Bilirubin, total 0.2 0.1 - 1.2 mg/dL Bilirubin, direct 0.1 0.1 - 0.3 mg/dL [facility] Protein, pl 7.0 6.5 - 8.5 g/dL [facility] Albumin 3.6 3.5 - 5.0 g/dL [facility] Alk phos 141(H) 40 - 130 Units/L [facility] ALT 22 7 - 55 Units/L [facility] AST 40 10 - 50 Units/L [facility] Blood 11/05/2024 3:03 AM CDT 11/05/2024 3:09 AM CDT Yovani Zeng LAB BLOOD ORDERABLES Final Re sult Performing Organization Address City/[facility]/ZIP Co de Phone Number [place] [address] [facility] [place] [address] * (ABNORMAL) Basic metabolic panel (11/05/2024 3:03 AM CDT) [facility] Sodium 134(L) 135 - 145 mmol/L Potassium, pl 4.1 3.3 - 4.9 mmol/L [facility] Chloride 97 97 - 110 mmol/L [facility] CO2 27 22 - 32 mmol/L [facility] Anion gap 10 2 - 15 mmol/L [facility] BUN 16 6 - 25 mg/dL [facility] Creatinine 1.31(H) 0.80 - 1.30 mg/dL [facility] Glucose 85 70 - 199 mg/dL [facility] Comment: Interpretive Data Fasting glucose >/= 126 [...] 2022. Calcium 9.3 8.5 - 10.3 mg/dL [facility] Blood 11/05/2024 3:03 AM CDT 11/05/2024 3:09 AM CDT Yovani Zeng LAB BLOOD ORDERABLES Final Re sult Performing Organization Address City/[facility]/ZIP Co de Phone Number [place] [address] [facility] [place] [address] * eGFR (11/04/2024 4:14 AM CDT) [facility] eGFR >90 >=60 mL/min/1. 73 m2 [...] NP LAB BLOOD ORDERABLES Final Re sult [facility] [address] [facility] Department [place] [address] * Differential, auto (11/04/2024 4:14 AM CDT) Pathologist [facility] Neutrophil abs 2.97 1.50 - 6.50 K/cumm Imm gran abs 0.02 0.00 - 0.10 K/cumm [facility] Lymphocyte abs 1.52 0.80 - 3.30 K/cumm [facility] Monocyte abs 0.61 0.20 - 0.80 K/cumm [facility] Eosinophil abs 0.07 0.00 - 0.50 K/cumm [facility] Basophil abs 0.02 0.00 - 0.10 K/cumm [facility] Neutrophil pct 57.0 % [facility] Comment: Interpretive Data Percent cell count reference ranges are not reported, since discordance with absolute values may lead to misinterpretation of CBC data. Current Interpretive Data was last revised on 2017. Imm gran pct 0.4 % [facility] Comment: Interpretive Data Percent cell count reference ranges are not reported, since discordance with absolute values may lead to misinterpretation of CBC data. Current Interpretive Data was last revised on 2017. Lymphocyte pct 29.2 % [facility] Comment: Interpretive Data Percent cell count reference ranges are not reported, since discordance with absolute values may lead to misinterpretation of CBC data. Current Interpretive Data was last revised on 2017. Monocyte pct 11.7 % [facility] Comment: Interpretive Data Percent cell count reference ranges are not reported, since discordance with absolute values may lead to misinterpretation of CBC data. Current Interpretive Data was last revised on 2017. Eosinophil pct 1.3 % [facility] Comment: Interpretive Data Percent cell count reference ranges are not reported, since discordance with absolute values may lead to misinterpretation of CBC data. Current Interpretive Data was last revised on 2017. Basophil pct 0.4 % [facility] Comment: Interpretive Data Percent cell count reference ranges are not reported, since discordance with absolute values may lead to misinterpretation of CBC data. Current Interpretive Data was last revised on 2017. Blood 11/04/2024 4:14 AM CDT 11/04/2024 4:26 AM CDT Yovani Zeng NP LAB BLOOD ORDERABLES Final Re sult [facility] [address] [facility] Department of Laboratories [place], [place] [id number] * (ABNORMAL) CBC with auto differential (11/04/2024 4:14 AM CDT) WBC 5.21 3.80 - 9.90 K/cumm Hgb 13.2 13.0 - 17.5 g/dL [facility] Hct 39.4 38.9 - 50.3 % [facility] Plt 271 150 - 400 K/cumm [facility] MPV 9.2 9.1 - 12.3 fL [facility] RBC 5.13 4.30 - 5.80 M/cumm [facility] MCV 76.8(L) 81.3 - 96.4 fL [facility] MCH 25.7(L) 27.1 - 33.3 pg [facility] MCHC 33.5 32.3 - 35.7 g/dL [facility] RDW CV 15.5(H) 11.1 - 14.9 % [facility] RDW SD 42.6 35.7 - 48.1 fL [facility] NRBC abs 0.00 0.00 - 0.01 K/cumm [facility] Blood 11/04/2024 4:14 AM CDT 11/04/2024 4:26 AM CDT Yovani Zeng NP LAB BLOOD ORDERABLES Final Re sult [address] [place] [address] * Folate (11/04/2024 4:14 AM CDT) Pathologist [facility] Folic acid 6.4 >=5.0 ng/mL Blood 11/04/2024 4:14 AM CDT 11/04/2024 4:26 AM CDT Gwen Lau MD LAB BLOOD ORDERABLES Elena l Result Performing Organization Address City/[facility]/ZIP Co de Phone Number [address] [place] [address] * (ABNORMAL) Hepatic function panel (11/04/2024 4:14 AM CDT) Bilirubin, total 0.3 0.1 - 1.2 mg/dL Bilirubin, direct 0.2 0.1 - 0.3 mg/dL [facility] Protein, pl 7.0 6.5 - 8.5 g/dL [facility] Albumin 3.5 3.5 - 5.0 g/dL [facility] Alk phos 137(H) 40 - 130 Units/L [facility] ALT 19 7 - 55 Units/L [facility] AST 33 10 - 50 Units/L [facility] Blood 11/04/2024 4:14 AM CDT 11/04/2024 4:26 AM CDT Yovani Zeng NP LAB BLOOD ORDERABLES Final Re sult Performing Organization Address City/[facility]/ZIP Co de Phone Number [facility] [place] [address] * (ABNORMAL) Basic metabolic panel (11/04/2024 4:14 AM CDT) Sodium 132(L) 135 - 145 mmol/L Potassium, pl 4.6 3.3 - 4.9 mmol/L [facility] Comment:Delta - Results Revi ewed Chloride 97 97 - 110 mmol/L [facility] CO2 26 22 - 32 mmol/L [facility] Anion gap 9 2 - 15 mmol/L [facility] BUN 10 6 - 25 mg/dL [facility] Creatinine 0.85 0.80 - 1.30 mg/dL [facility] Glucose 99 70 - 199 mg/dL [facility] Comment: Interpretive Data Fasting glucose >/= 126 [...] 2022. Calcium 9.2 8.5 - 10.3 mg/dL [facility] Blood 11/04/2024 4:14 AM CDT 11/04/2024 4:26 AM CDT Yovani Zeng NP LAB BLOOD ORDERABLES Final Re sult Performing Organization Address City/[facility]/ZIP Co de Phone Number [place] [address] [facility] [place] [address] * XR Chest 1 View (11/03/2024 12:45 PM CDT) Anatomical Region Laterality Modality Body, Chest N/A Computed Radiogr aphy 11/03/2024 12:5 6 PM CDT Narrative 11/03/2024 12:57 PM CDT EXAM DESCRIPTION: XR CHEST 1 VIEW REASON FOR STUDY: cough, H/o Latent Tb-completed treatement x 9 months. 5 day history of cough, non productive, suspected emphysema, detention smoker Patient to ED yesterday after fall [...] Rey Irene M.D. NS T: Report ID: [id number] Reading Location: [id number] Procedure Note Rey Irene MD - 11/03/2024 EXAM DESCRIPTION: XR CHEST 1 VIEW REASON FOR STUDY: cough, H/o Latent Tb-completed treatement x 9 months. 5day history of cough, non productive, suspected emphysema, detention smoker Patient to ED yesterday after fall [...] signed by Rey MCCLAIN T: Report ID: [id number] Reading Location: [place] [address] Gwen Lau MD IMG XR PROCEDURES Final [...] LAB BLOOD ORDERABLES Final Re sult [place] [address] [facility] [place] [address] * Differential, auto (11/03/2024 3:08 AM CDT) Neutrophil abs 3.6 1.5 - 6.5 K/cumm Imm gran abs 0.0 0.0 - 0.1 K/cumm [facility] Lymphocyte abs 1.7 0.8 - 3.3 K/cumm [facility] Monocyte abs 0.7 0.2 - 0.8 K/cumm [facility] Eosinophil abs 0.1 0.0 - 0.5 K/cumm [facility] Basophil abs 0.0 0.0 - 0.1 K/cumm [facility] Neutrophil pct 59.4 % [facility] Comment: Interpretive Data Percent cell count reference ranges are not reported, since discordance with absolute values may lead to misinterpretation of CBC data. Current Interpretive Data was last revised on 2017. Imm gran pct 0.2 % [facility] Comment: Interpretive Data Percent cell count reference ranges are not reported, since discordance with absolute values may lead to misinterpretation of CBC data. Current Interpretive Data was last revised on 2017. Lymphocyte pct 27.4 % [facility] Comment: Interpretive Data Percent cell count reference ranges are not reported, since discordance with absolute values may lead to misinterpretation of CBC data. Current Interpretive Data was last revised on 2017. Monocyte pct 11.6 % [facility] Comment: Interpretive Data Percent cell count reference ranges are not reported, since discordance with absolute values may lead to misinterpretation of CBC data. Current Interpretive Data was last revised on 2017. Eosinophil pct 1.2 % [facility] Comment: Interpretive Data Percent cell count reference ranges are not reported, since discordance with absolute values may lead to misinterpretation of CBC data. Current Interpretive Data was last revised on 2017. Basophil pct 0.2 % [facility] Comment: Interpretive Data Percent cell count reference ranges are not reported, since discordance with absolute values may lead to misinterpretation of CBC data. Current Interpretive Data was last revised on 2017. Blood 11/03/2024 3:08 AM CDT 11/03/2024 3:29 AM CDT us Yovani Zeng NP LAB BLOOD ORDERABLES Final Re sult [place] [address] [facility] [place] [address] * (ABNORMAL) Iron profile w/ IBC (11/03/2024 3:08 AM CDT) [facility] Iron 101 50 - 150 mcg/dL TIBC 180(L) 250 - 400 mcg/dL [facility] Transferrin saturation 56(H) 20 - 50 % [facility] Blood 11/03/2024 3:08 AM CDT 11/03/2024 3:30 AM CDT us Gwen Lau MD LAB BLOOD ORDERABLES Elena l Result Performing Organization Address City/[facility] Co de Phone Number [facility] [address] [place] [address] * (ABNORMAL) CBC with auto differential (11/03/2024 3:08 AM CDT) [facility] WBC 6.1 3.8 - 9.9 K/cumm Hgb 11.6(L) 13.0 - 17.5 g/dL [facility] Hct 35.3(L) 38.9 - 50.3 % [facility] Plt 249 150 - 400 K/cumm [facility] MPV 9.2 9.1 - 12.3 fL [facility] RBC 4.51 4.30 - 5.80 M/cumm [facility] MCV 78.3(L) 81.3 - 96.4 fL [facility] MCH 25.7(L) 27.1 - 33.3 pg [facility] MCHC 32.9 32.3 - 35.7 g/dL [facility] RDW CV 15.9(H) 11.1 - 14.9 % [facility] RDW SD 44.7 35.7 - 48.1 fL [facility] NRBC abs 0.00 0.00 - 0.01 K/cumm [facility] Blood 11/03/2024 3:08 AM CDT 11/03/2024 3:29 AM CDT us Yovani Zeng NP LAB BLOOD ORDERABLES Final Re sult Performing Organization Address City/[facility]/ZIP Co de Phone Number [place] [address] [place] [address] * Phosphorus (11/03/2024 3:08 AM CDT) [facility] Phosphorus, pl 4.3 2.3 - 4.5 mg/dL Blood 11/03/2024 3:08 AM CDT 11/03/2024 3:30 AM CDT Gwen Lau MD LAB BLOOD ORDERABLES Elena l Result Performing Organization Address City/[facility]/ZIP Co de Phone Number [place] [address] [place] [address] * Magnesium (11/03/2024 3:08 AM CDT) [facility] Magnesium 1.9 1.4 - 2.5 mg/dL Blood 11/03/2024 3:08 AM CDT 11/03/2024 3:30 AM CDT Gwen Lau MD LAB BLOOD ORDERABLES Elena l Result Performing Organization Address City/[facility]/ZIP Co de Phone Number JESS[address] [place] [address] * (ABNORMAL) Ferritin (11/03/2024 3:08 AM CDT) [facility] Ferritin 481(H) 30 - 400 ng/mL Blood 11/03/2024 3:08 AM CDT 11/03/2024 3:30 AM CDT Gwen Lau MD LAB BLOOD ORDERABLES Elena l Result Performing Organization Address City/[facility]/ZIP Co de Phone Number [address]ESS[address] [place] [address] * Vitamin B12 (11/03/2024 3:08 AM CDT) [facility] Vitamin B12 370 230 - 1,250 pg/mL Blood 11/03/2024 3:08 AM CDT 11/03/2024 3:30 AM CDT Gwen Lau MD LAB BLOOD ORDERABLES Elena l Result Performing Organization Address [facility]/ZIP Co de Phone Number [address] [place] [address] * (ABNORMAL) Hepatic function panel (11/03/2024 3:08 AM CDT) [facility] Bilirubin, total 0.6 0.1 - 1.2 mg/dL Bilirubin, direct 0.3 0.1 - 0.3 mg/dL [facility] Protein, pl 6.3(L) 6.5 - 8.5 g/dL [facility] Albumin 3.2(L) 3.5 - 5.0 g/dL [facility] Alk phos 135(H) 40 - 130 Units/L [facility] ALT 21 7 - 55 Units/L [facility] AST 40 10 - 50 Units/L [facility] Blood 11/03/2024 3:08 AM CDT 11/03/2024 3:30 AM CDT Yovani Zeng NP LAB BLOOD ORDERABLES Final Re sult Performing Organization Address [facility] Co de Phone Number [address] [place] [address] * (ABNORMAL) Basic metabolic panel (11/03/2024 3:08 AM CDT) [facility] Sodium 134(L) 135 - 145 mmol/L Potassium, pl 3.1(L) 3.3 - 4.9 mmol/L [facility] Chloride 96(L) 97 - 110 mmol/L [facility] CO2 29 22 - 32 mmol/L [facility] Anion gap 9 2 - 15 mmol/L [facility] BUN 6 6 - 25 mg/dL [facility] Creatinine 1.04 0.80 - 1.30 mg/dL [facility] Glucose 110 70 - 199 mg/dL [facility] Comment: Interpretive Data Fasting glucose >/= 126 [...] 2022. Calcium 8.8 8.5 - 10.3 mg/dL [facility] Blood 11/03/2024 3:08 AM CDT 11/03/2024 3:30 AM CDT [facility] BLOOD ORDERABLES Final Re sult Performing Organization Address [facility] Co de Phone Number [address] [place] [address] * Hepatitis C antibody Blood (11/02/2024 4:27 [...] 11/02/2024 5:02 PM CDT [facility] LAB MICROBIOLOGY - GENERAL OR DERABLES Final Result Performing Organization Address [facility] Co de Phone Number [facility] [employer] [facility] [place] [address] * eGFR (11/02/2024 9:48 AM CDT) Pathologist [facility] eGFR >90 >=60 mL/min/1. 73 [...] LAB BLOOD ORDERABLES Final Re sult [place] [address] [facility] [place] [address] * Differential, auto (11/02/2024 9:48 AM CDT) Pathologist [facility] Neutrophil abs 4.6 1.5 - 6.5 K/cumm Imm gran abs 0.0 0.0 - 0.1 K/cumm [facility] Lymphocyte abs 1.4 0.8 - 3.3 K/cumm [facility] Monocyte abs 0.8 0.2 - 0.8 K/cumm [facility] Eosinophil abs 0.0 0.0 - 0.5 K/cumm [facility] Basophil abs 0.0 0.0 - 0.1 K/cumm [facility] Neutrophil pct 67.5 % [facility] Comment: Interpretive Data Percent cell count reference ranges are not reported, since discordance with absolute values may lead to misinterpretation of CBC data. Current Interpretive Data was last revised on 2017. Imm gran pct 0.4 % [facility] Comment: Interpretive Data Percent cell count reference ranges are not reported, since discordance with absolute values may lead to misinterpretation of CBC data. Current Interpretive Data was last revised on 2017. Lymphocyte pct 20.1 % [facility] Comment: Interpretive Data Percent cell count reference ranges are not reported, since discordance with absolute values may lead to misinterpretation of CBC data. Current Interpretive Data was last revised on 2017. Monocyte pct 11.5 % [facility] Comment: Interpretive Data Percent cell count reference ranges are not reported, since discordance with absolute values may lead to misinterpretation of CBC data. Current Interpretive Data was last revised on 2017. Eosinophil pct 0.4 % [facility] Comment: Interpretive Data Percent cell count reference ranges are not reported, since discordance with absolute values may lead to misinterpretation of CBC data. Current Interpretive Data was last revised on 2017. Basophil pct 0.1 % [facility] Comment: Interpretive Data Percent cell count reference ranges are not reported, since discordance with absolute values may lead to misinterpretation of CBC data. Current Interpretive Data was last revised on 2017. Blood 11/02/2024 9:48 AM CDT 11/02/2024 9:59 AM CDT Yana SIMMONS LAB BLOOD ORDERABLES Final Re sult [place] [address] [facility] Department of [facility] [place], [place] [id number] * (ABNORMAL) CBC with auto differential (11/02/2024 9:48 AM CDT) WBC 6.9 3.8 - 9.9 K/cumm Hgb 12.0(L) 13.0 - 17.5 g/dL [facility] Hct 36.4(L) 38.9 - 50.3 % [facility] Plt 245 150 - 400 K/cumm [facility] MPV 8.9(L) 9.1 - 12.3 fL [facility] RBC 4.71 4.30 - 5.80 M/cumm [facility] MCV 77.3(L) 81.3 - 96.4 fL [facility] MCH 25.5(L) 27.1 - 33.3 pg [facility] MCHC 33.0 32.3 - 35.7 g/dL [facility] RDW CV 15.6(H) 11.1 - 14.9 % [facility] RDW SD 43.8 35.7 - 48.1 fL [facility] NRBC abs 0.00 0.00 - 0.01 K/cumm [facility] Blood 11/02/2024 9:48 AM CDT 11/02/2024 9:59 AM CDT Yana SIMMONS LAB BLOOD ORDERABLES Final Re sult Performing Organization Address [facility] Co de Phone Number [address] [place] [address] * Ethanol (11/02/2024 9:48 AM CDT) Pathologist [facility] Ethanol <10 <=10 mg/dL Comment: Interpretive Data Legal limit of intoxication > or = 80 mg/dL Levels > or = 400 mg/dL are potentially TOXIC. Current interpretive data was last revised on 2018. Blood 11/02/2024 9:48 AM CDT 11/02/2024 9:59 AM CDT Yana SIMMONS LAB BLOOD ORDERABLES Final Re sult Performing Organization Address [facility] Co de Phone Number [address] [place] [address] * (ABNORMAL) Comprehensive metabolic panel (11/02/2024 9:48 AM CDT) Pathologist [facility] Sodium 137 135 - 145 mmol/L Potassium, pl 3.3 3.3 - 4.9 mmol/L [facility] Chloride 98 97 - 110 mmol/L [facility] CO2 30 22 - 32 mmol/L [facility] Anion gap 9 2 - 15 mmol/L [facility] BUN 4(L) 6 - 25 mg/dL [facility] Creatinine 0.82 0.80 - 1.30 mg/dL [facility] Glucose 90 70 - 199 mg/dL [facility] Comment: Interpretive Data Fasting glucose >/= 126 [...] 2022. Calcium 8.9 8.5 - 10.3 mg/dL [facility] Bilirubin, total 1.2 0.1 - 1.2 mg/dL [facility] Protein, pl 7.2 6.5 - 8.5 g/dL [facility] Albumin 3.7 3.5 - 5.0 g/dL [facility] Alk phos 148(H) 40 - 130 Units/L [facility] ALT 24 7 - 55 Units/L [facility] AST 67(H) 10 - 50 Units/L [facility] Blood 11/02/2024 9:48 AM CDT 11/02/2024 9:59 AM CDT Yana SIMMONS LAB BLOOD ORDERABLES Final Re sult [facility] [address] [facility] [place] [address] * CT Lumbar Spine WO [...] by Noe Rob M.D. T: Report ID: [id number] Reading Location: [id number] Procedure Note Noe Rob Jr., MD - [...] by Noe Rob M.D. T: Report ID: [id number] Reading Location: [id number] Yana SIMMONS IMG CT PROCEDURES Final Resul [...] by Noe Rob M.D. T: Report ID: [id number] Reading Location: [id number] Procedure Note Noe Rob Jr., MD - 11/02/2024 EXAM DESCRIPTION: CT CERVICAL SPINE WO CONTRAST REASON FOR STUDY: Neck trauma, uncomplicated (NEXUS/CCR neg) ([id number]) from home by EMS. States he was [...] by Noe Rob M.D. T: Report ID: [id number] Reading Location: [place] [address] PROCEDURES Final Resul [...] by Noe Rob M.D. T: Report ID: [id number] Reading Location: [id number] Procedure Note Noe Rob Jr., MD - [...] by Noe Rob M.D. T: Report ID: [id number] Reading Location: [id number] Yana Peterson IRIS IMG CT PROCEDURES Final [...] by Noe Rob M.D. T: Report ID: [id number] Reading Location: [id number] Procedure Note Noe Rob Jr., MD - [...] by Noe Rob M.D. T: Report ID: [id number] Reading Location: [id number] Yana SIMMONS IMG CT PROCEDURES Final Resul t * (ABNORMAL) Urinalysis reflex to microscopic and culture Urine (01/04/2024 7:22 AM CDT) Color, ur Other(A) Yellow Clarity, ur Cloudy(A) Clear [place] Specific gravity, ur 1.021 1.003 - 1.030 [place] pH, urine 7.0 [facility] Comment: Interpretive Data U rine pH is affected by diet, medications, systemic acid-base disturbances, and renal tubular function. pH may affect urinary stone formation. For example, urine pH below 6.0 may help reduce the tendency for calcium phosphate stones and pH greater than 6.0 may reduce the tendency for uric acid stone formation. Source: [facility] [place] Current Interpretive Data was last revised on 2017 Protein, ur ql 2+(A) Negative [facility] Glucose, ur ql Negative Negative [facility] Ketones, ur Negative Negative [facility] Bilirubin, ur Negative Negative [facility] Blood, ur 3+(A) Negative [facility] Urobilinogen, ur <2.0 <2.0 mg/dL [place] Nitrite, ur Positive(A) Negative [place] Leukocyte esterase, ur 4+(A) Negative [place] UA reflex comment Reflex to microscopic UA will be performed. [place] Urine 01/04/2024 7:22 AM CDT 01/04/2024 7:30 AM CDT Pedro Ochoa MD LAB MICROBIOLOGY - GENERAL ORDERABLES Final Result [place] [address] [facility] [place] [address] * (ABNORMAL) Lipid panel (08/13/2023 5:23 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 PROTECTION ENGINEER) Cholesterol 159 30 - 199 mg/dL [place] [...] revised on 2018. Triglycerides 308(H) <=149 mg/dL [place] Comment: Interpretive Data Ages < [...] 2 [place] Blood 08/13/2023 5:23 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 PROTECTION ENGINEER 08/13/2023 5:25 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 PROTECTION ENGINEER us Scotty Gill MD LAB BLOOD ORDERABLES Final Result [place] [address] [facility] [place] [address] * RPR Blood (02/14/2023 5:08 AM CDT) Pathologist [facility] RPR Nonreactive Nonreactive [place] Comment:Testing performed by : [facility], [address] [place] [address] Blood 02/14/2023 5:08 AM CDT 02/14/2023 8:06 AM CDT Teresa Hernandez DO LAB MICROBIOLOGY - GENERAL DANNI BRASWELL Final Result [place] [address] [facility] [place] [address] * (ABNORMAL) TB test, quantiferon gold (08/31/2022 3:10 PM SENIOR FIRE PROTECTION ENGINEER) [facility] Quantiferon TB Gold Positive( A) Negative [...] IUnits/mL [place] Comment: Test Performed by: [facility] [address] [place] [address] Manager Operations And Procurement: Yung Henning M.D. Ph.D.; CLIA# [id number] Blood 08/31/2022 3:10 PM SENIOR FIRE PROTECTION ENGINEER 08/31/2022 3:19 PM SENIOR FIRE PROTECTION ENGINEER us Cody Medina MD LAB BLOOD ORDERABLES Final R esult [facility] [address] [place] [address] * Hepatitis panel, acute (08/31/2022 9:01 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 PROTECTION ENGINEER) Pathologist [facility] Hep A IgM Nonreactive Nonreactive [facility] Comment: Interpretive Data: If Hep A IgM Ab is reported as Equivocal, a new sample should be drawn in two weeks for testing. Current interpretive data was last revised on 19. Hep B core IgM Nonreactive Nonreactive [facility] Comment: Interpretive Data If HepB Core IgM Ab is reported as Equivocal, a new sample should be drawn in two weeks for testing. Current interpretive data was last revised on 19. Hep C Ab Nonreactive Nonreactive [facility] Comment: Interpretive Data Nonreactive: Antibodies to HCV [...] last revised on 2019. HepBsAg Nonreactive Nonreactive [facility] Blood 08/31/2022 9:01 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 PROTECTION ENGINEER 08/31/2022 9:33 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 PROTECTION ENGINEER us Scotty Gill MD LAB MICROBIOLOGY - NERAL ORDERABLES Final Result [address]ESS[address] [place] [address] * Hemoglobin A1c (08/31/2022 9:01 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 PROTECTION ENGINEER) Pathologist [facility] Hgb A1C 5.0 4.0 - 5.6 % [facility] Estimated Average Glucose 97 mg/dL [place] Comment: The ADA recommends reporting an estimated Average Glucose (eAG) with all Hemoglobin A1c results using the equation derived from a study of 507 normal and diabetic adults. Minority populations were underrepresented and children were not included. (Diabetes Care 31:9872-0115, 2008). The eAG is not equivalent to a fasting glucose. Blood 08/31/2022 9:01 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 PROTECTION ENGINEER 08/31/2022 9:33 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 PROTECTION ENGINEER us Scotty Gill MD LAB BLOOD ORDERABLES Final Result [place] [address] [facility] [place] [address] from Last 3 Months or Most Recently Relevant to Health Maintenance Insurance [place] [address] [facility] [place] Advance Directives For more information, please contact: [phone] * Full Code (Latest Code Status on [...] 2:20 AM 09/10/2022 6:49 PM Care Teams Body Shop Worker Relationship Specialty Start Date End Date Nelly Hernandez MD [address] [place] [id number] PCP - General Family Medicine 08/14/23
--- OUTSIDE RECORDS SUMMARY | 2024-11-18 10:03 | XMS_ITS | Clinical Summary ---
Author Organization [facility] Address [address] [place] [address] Care Team Providers Care Electrical Line Splicer Name Role Phone Nelly Hernandez MD Primary [...] day as needed for muscle spasms Active uodeikd-ekq-nnuqz -tenofo DISOP (STRIBILD) [phone] mg tablet Take 1 tablet by mouth [...] tablet 09/28/19 23 2024 Discontinued(A lternate therapy) kzruwvg-vlm-ddfsx -tenofo DISOP (STRIBILD) [phone] mg tabletIndications :HIV infection Take 1 tablet [...] 09/12/2022 Assessment & Plan (09/12/2022 6:59 AM ROTOR COIL TAPER): -concern for extrapulmonary infections including diskitis -follow ID consult recommendations -AFB stain with no acid-fast bacilli noted, CT chest within normal limits Polysubstance abuse 09/12/2022 Overview (09/12/2022): -monitor cows score -screen for withdrawals Discitis, unspecified spinal region 09/11/2022 Assessment & Plan (09/12/2022 6:58 AM ROTOR COIL TAPER): -s/p bone/disc biopsy by IR for follow [...] and vancomycin day 2 -pain control with [place] -start LR 125 cc/hour for 8 hours HIV (human immunodeficiency virus infection) Assessment & Plan (09/12/2022 6:58 AM ROTOR COIL TAPER): ID consult recommendations -viral load 9390 CD4 [...] - 11/06/2024 9:30 AM CDT [place] [address] Darin Dailey MD [place], Gwen Trammell MD [...] drink = 0.6 oz pur e alcohol) [facility] Utilities Answer Date Recorded In the [...] often do you attend chur ch or islam services? Never 11/03/2024 Do you belong to any clubs o r organizations such as pres[employer]ian groups, unions, fraternal or athletic groups, or [...] place to sleep or slept in a senior care (including now)? No 08/14/2023 Housing Stability Vital Sign Answer David e Recorded In the last 12 months, was t here a time when you were not able to pay the mortgage or rent on time? No 11/03/2024 In the past 12 months, how m any times have you moved where you were living? 0 11/03/2024 At any time in the past 12 m [facility], were you homeless or living in a senior care (including now)? No 11/03/2024 Personal Safety Answer Date Recorded Have you ever been in or are you currently in a harmful physical or emotional relationship or is someone making you feel afraid or unsafe? Denies 11/02/2024 Sex and Gender Information Value Date Recorded Sex Assigned at Not on file Legal Sex Male 9:42 AM ROTOR COIL TAPER Gender Identity Not on file Sexual Orientation [...] CDT LIPID PANEL Routine 08/13/2023 5:23 AM ROTOR COIL TAPER RPR STAT 02/14/2023 5:08 AM CDT TB TEST, QUANTIFERON GOLD Routine 08/31/2022 3:10 PM ROTOR COIL TAPER HEMOGLOBIN A1C Routine 08/31/2022 9:01 AM ROTOR COIL TAPER HEPATITIS PANEL, ACUTE Routine 08/31/2022 9:01 AM ROTOR COIL TAPER from Last 3 Months or Most Recently [...] NP LAB BLOOD ORDERABLES Final Re sult [facility] [address] [facility] Department [place] [address] * (ABNORMAL) Differential, auto (11/06/2024 5:27 AM CDT) Neutrophil abs 7.25(H) 1.50 - 6.50 K/cumm Imm gran abs 0.04 0.00 - 0.10 K/cumm [facility] Lymphocyte abs 0.99 0.80 - 3.30 K/cumm [facility] Monocyte abs 0.89(H) 0.20 - 0.80 K/cumm [facility] Eosinophil abs 0.05 0.00 - 0.50 K/cumm [facility] Basophil abs 0.01 0.00 - 0.10 K/cumm [facility] Neutrophil pct 78.7 % [facility] Comment: Interpretive Data Percent cell count reference ranges are not reported, since discordance with absolute values may lead to misinterpretation of CBC data. Current Interpretive Data was last revised on 2017. Imm gran pct 0.4 % [facility] Comment: Interpretive Data Percent cell count reference ranges are not reported, since discordance with absolute values may lead to misinterpretation of CBC data. Current Interpretive Data was last revised on 2017. Lymphocyte pct 10.7 % [facility] Comment: Interpretive Data Percent cell count reference ranges are not reported, since discordance with absolute values may lead to misinterpretation of CBC data. Current Interpretive Data was last revised on 2017. Monocyte pct 9.6 % [facility] Comment: Interpretive Data Percent cell count reference ranges are not reported, since discordance with absolute values may lead to misinterpretation of CBC data. Current Interpretive Data was last revised on 2017. Eosinophil pct 0.5 % [facility] Comment: Interpretive Data Percent cell count reference ranges are not reported, since discordance with absolute values may lead to misinterpretation of CBC data. Current Interpretive Data was last revised on 2017. Basophil pct 0.1 % [facility] Comment: Interpretive Data Percent cell count reference ranges are not reported, since discordance with absolute values may lead to misinterpretation of CBC data. Current Interpretive Data was last revised on 2017. Blood 11/06/2024 5:27 AM CDT 11/06/2024 6:01 AM CDT [facility] BLOOD ORDERABLES Final Re sult Performing Organization Address [facility] Co de Phone Number [facility] [address] [place] [address] * (ABNORMAL) CBC with auto differential (11/06/2024 5:27 AM CDT) WBC 9.23 3.80 - 9.90 K/cumm Hgb 13.7 13.0 - 17.5 g/dL [facility] Hct 41.8 38.9 - 50.3 % [facility] Plt 316 150 - 400 K/cumm [facility] MPV 9.3 9.1 - 12.3 fL [facility] RBC 5.33 4.30 - 5.80 M/cumm [facility] MCV 78.4(L) 81.3 - 96.4 fL [facility] MCH 25.7(L) 27.1 - 33.3 pg [facility] MCHC 32.8 32.3 - 35.7 g/dL [facility] RDW CV 16.1(H) 11.1 - 14.9 % [facility] RDW SD 45.1 35.7 - 48.1 fL [facility] NRBC abs 0.00 0.00 - 0.01 K/cumm [facility] Blood 11/06/2024 5:27 AM CDT 11/06/2024 6:01 AM CDT [facility] LAB [facility]LOOD ORDERABLES Final Re sult Performing Organization Address [facility] Co de Phone Number [facility] [address] [place] [employer] [address] * Hepatic function panel (11/06/2024 5:27 AM CDT) [facility] Bilirubin, total 0.3 0.1 - 1.2 mg/dL Bilirubin, direct 0.2 0.1 - 0.3 mg/dL [facility] Protein, pl 7.8 6.5 - 8.5 g/dL [facility] Albumin 3.9 3.5 - 5.0 g/dL [facility] Alk phos 128 40 - 130 Units/L [facility] ALT 24 7 - 55 Units/L [facility] AST 36 10 - 50 Units/L [facility] Blood 11/06/2024 5:27 AM CDT 11/06/2024 6:04 AM CDT Yovani Zeng NP LAB BLOOD ORDERABLES Final Re sult [facility] [address] [facility] [place] [address] * (ABNORMAL) Basic metabolic panel (11/06/2024 5:27 AM CDT) [facility] Sodium 133(L) 135 - 145 mmol/L Potassium, pl 4.3 3.3 - 4.9 mmol/L [facility] Chloride 95(L) 97 - 110 mmol/L [facility] CO2 27 22 - 32 mmol/L [facility] Anion gap 11 2 - 15 mmol/L [facility] BUN 15 6 - 25 mg/dL [facility] Creatinine 1.02 0.80 - 1.30 mg/dL [facility] Glucose 69(L) 70 - 199 mg/dL [facility] Comment: Interpretive Data Fasting glucose >/= 126 [...] ORDERABLES Final Re sult Performing Organization Address [facility]/ZIP Co de Phone Number JESSICA[address] [place] [employer] [address] * eGFR (11/05/2024 10:38 AM CDT) eGFR [...] ORDERABLES Elena l Result Performing Organization Address City/[facility]/ZIP Co de Phone Number JESSICA[address] [place] [employer] [place] [address] * Creatinine (11/05/2024 10:38 AM CDT) Creatinine 1.06 0.80 - 1.30 mg/dL Blood 11/05/2024 10:3 8 AM CDT 11/05/2024 10:56 AM CDT Gwen Valeri Lau MD LAB BLOOD ORDERABLES Elena l Result [facility] [address] [place] [employer] [address] * eGFR (11/05/2024 3:03 AM CDT) [facility] eGFR 66 >=60 mL/min/1. 73 m2 Comment: [...] LAB BLOOD ORDERABLES Final Re sult [facility] [address] [place] [address] * Differential, auto (11/05/2024 3:03 AM CDT) Pathologist [facility] Neutrophil abs 3.24 1.50 - 6.50 K/cumm Imm gran abs 0.04 0.00 - 0.10 K/cumm [facility] Lymphocyte abs 1.48 0.80 - 3.30 K/cumm [facility] Monocyte abs 0.60 0.20 - 0.80 K/cumm [facility] Eosinophil abs 0.09 0.00 - 0.50 K/cumm [facility] Basophil abs 0.01 0.00 - 0.10 K/cumm [facility] Neutrophil pct 59.4 % [facility] Comment: Interpretive Data Percent cell count reference ranges are not reported, since discordance with absolute values may lead to misinterpretation of CBC data. Current Interpretive Data was last revised on 2017. Imm gran pct 0.7 % [facility] Comment: Interpretive Data Percent cell count reference ranges are not reported, since discordance with absolute values may lead to misinterpretation of CBC data. Current Interpretive Data was last revised on 2017. Lymphocyte pct 27.1 % [facility] Comment: Interpretive Data Percent cell count reference ranges are not reported, since discordance with absolute values may lead to misinterpretation of CBC data. Current Interpretive Data was last revised on 2017. Monocyte pct 11.0 % [facility] Comment: Interpretive Data Percent cell count reference ranges are not reported, since discordance with absolute values may lead to misinterpretation of CBC data. Current Interpretive Data was last revised on 2017. Eosinophil pct 1.6 % [facility] Comment: Interpretive Data Percent cell count reference ranges are not reported, since discordance with absolute values may lead to misinterpretation of CBC data. Current Interpretive Data was last revised on 2017. Basophil pct 0.2 % [facility] Comment: Interpretive Data Percent cell count reference ranges are not reported, since discordance with absolute values may lead to misinterpretation of CBC data. Current Interpretive Data was last revised on 2017. Blood 11/05/2024 3:03 AM CDT 11/05/2024 3:09 AM CDT us Yovani Zeng NP LAB BLOOD ORDERABLES Final Re sult [facility] [address] [facility] Department [place] [address] * (ABNORMAL) CBC with auto differential (11/05/2024 3:03 AM CDT) [facility] WBC 5.46 3.80 - 9.90 K/cumm Hgb 13.6 13.0 - 17.5 g/dL [facility] Hct 40.8 38.9 - 50.3 % [facility] Plt 310 150 - 400 K/cumm [facility] MPV 8.9(L) 9.1 - 12.3 fL [facility] RBC 5.29 4.30 - 5.80 M/cumm [facility] MCV 77.1(L) 81.3 - 96.4 fL [facility] MCH 25.7(L) 27.1 - 33.3 pg [facility] MCHC 33.3 32.3 - 35.7 g/dL [facility] RDW CV 15.9(H) 11.1 - 14.9 % [facility] RDW SD 43.7 35.7 - 48.1 fL [facility] NRBC abs 0.00 0.00 - 0.01 K/cumm [facility] Blood 11/05/2024 3:03 AM CDT 11/05/2024 3:09 AM CDT Yovani Zeng NP LAB BLOOD ORDERABLES Final Re sult [facility] [address] [facility] Department [place] [address] * (ABNORMAL) Hepatic function panel (11/05/2024 3:03 AM CDT) [facility] Bilirubin, total 0.2 0.1 - 1.2 mg/dL Bilirubin, direct 0.1 0.1 - 0.3 mg/dL [facility] Protein, pl 7.0 6.5 - 8.5 g/dL [facility] Albumin 3.6 3.5 - 5.0 g/dL [facility] Alk phos 141(H) 40 - 130 Units/L [facility] ALT 22 7 - 55 Units/L [facility] AST 40 10 - 50 Units/L [facility] Blood 11/05/2024 3:03 AM CDT 11/05/2024 3:09 AM CDT Yovani Zeng NP LAB BLOOD ORDERABLES Final Re sult [place] [address] [facility] Department [place] [address] * (ABNORMAL) Basic metabolic panel (11/05/2024 3:03 AM CDT) [facility] Sodium 134(L) 135 - 145 mmol/L Potassium, pl 4.1 3.3 - 4.9 mmol/L [facility] Chloride 97 97 - 110 mmol/L [facility] CO2 27 22 - 32 mmol/L [facility] Anion gap 10 2 - 15 mmol/L [facility] BUN 16 6 - 25 mg/dL [facility] Creatinine 1.31(H) 0.80 - 1.30 mg/dL [facility] Glucose 85 70 - 199 mg/dL [facility] Comment: Interpretive Data Fasting glucose >/= 126 [...] 2022. Calcium 9.3 8.5 - 10.3 mg/dL [facility] Blood 11/05/2024 3:03 AM CDT 11/05/2024 3:09 AM CDT Yovani Zeng NP LAB BLOOD ORDERABLES Final Re sult [place] [address] [facility] Department [place] [address] * eGFR (11/04/2024 4:14 AM CDT) [facility] eGFR >90 >=60 mL/min/1. 73 m2 Comment: [...] NP LAB BLOOD ORDERABLES Final Re sult [facility] [address] [facility] Department [place] [address] * Differential, auto (11/04/2024 4:14 AM CDT) Pathologist [facility] Neutrophil abs 2.97 1.50 - 6.50 K/cumm Imm gran abs 0.02 0.00 - 0.10 K/cumm [facility] Lymphocyte abs 1.52 0.80 - 3.30 K/cumm [facility] Monocyte abs 0.61 0.20 - 0.80 K/cumm [facility] Eosinophil abs 0.07 0.00 - 0.50 K/cumm [facility] Basophil abs 0.02 0.00 - 0.10 K/cumm [facility] Neutrophil pct 57.0 % [facility] Comment: Interpretive Data Percent cell count reference ranges are not reported, since discordance with absolute values may lead to misinterpretation of CBC data. Current Interpretive Data was last revised on 2017. Imm gran pct 0.4 % [facility] Comment: Interpretive Data Percent cell count reference ranges are not reported, since discordance with absolute values may lead to misinterpretation of CBC data. Current Interpretive Data was last revised on 2017. Lymphocyte pct 29.2 % [facility] Comment: Interpretive Data Percent cell count reference ranges are not reported, since discordance with absolute values may lead to misinterpretation of CBC data. Current Interpretive Data was last revised on 2017. Monocyte pct 11.7 % [facility] Comment: Interpretive Data Percent cell count reference ranges are not reported, since discordance with absolute values may lead to misinterpretation of CBC data. Current Interpretive Data was last revised on 2017. Eosinophil pct 1.3 % [facility] Comment: Interpretive Data Percent cell count reference ranges are not reported, since discordance with absolute values may lead to misinterpretation of CBC data. Current Interpretive Data was last revised on 2017. Basophil pct 0.4 % [facility] Comment: Interpretive Data Percent cell count reference ranges are not reported, since discordance with absolute values may lead to misinterpretation of CBC data. Current Interpretive Data was last revised on 2017. Blood 11/04/2024 4:14 AM CDT 11/04/2024 4:26 AM CDT us Yovani Zeng NP LAB BLOOD ORDERABLES Final Re sult [facility] [address] [facility] Department [place] [address] * (ABNORMAL) CBC with auto differential (11/04/2024 4:14 AM CDT) WBC 5.21 3.80 - 9.90 K/cumm Hgb 13.2 13.0 - 17.5 g/dL [facility] Hct 39.4 38.9 - 50.3 % [facility] Plt 271 150 - 400 K/cumm [facility] MPV 9.2 9.1 - 12.3 fL [facility] RBC 5.13 4.30 - 5.80 M/cumm [facility] MCV 76.8(L) 81.3 - 96.4 fL [facility] MCH 25.7(L) 27.1 - 33.3 pg [facility] MCHC 33.5 32.3 - 35.7 g/dL [facility] RDW CV 15.5(H) 11.1 - 14.9 % [facility] RDW SD 42.6 35.7 - 48.1 fL [facility] NRBC abs 0.00 0.00 - 0.01 K/cumm [facility] Blood 11/04/2024 4:14 AM CDT 11/04/2024 4:26 AM CDT Yovani Zeng NP LAB BLOOD ORDERABLES Final Re sult Performing Organization Address City/[facility]/ZIP Co de Phone Number [address] [place] [employer] [address] * Folate (11/04/2024 4:14 AM CDT) Pathologist [facility] Folic acid 6.4 >=5.0 ng/mL Blood 11/04/2024 4:14 AM CDT 11/04/2024 4:26 AM CDT Gwen Lau MD LAB BLOOD ORDERABLES Elena l Result Performing Organization Address [facility] Co de Phone Number [address] [place] [address] * (ABNORMAL) Hepatic function panel (11/04/2024 4:14 AM CDT) Pathologist [facility] Bilirubin, total 0.3 0.1 - 1.2 mg/dL Bilirubin, direct 0.2 0.1 - 0.3 mg/dL [facility] Protein, pl 7.0 6.5 - 8.5 g/dL [facility] Albumin 3.5 3.5 - 5.0 g/dL [facility] Alk phos 137(H) 40 - 130 Units/L [facility] ALT 19 7 - 55 Units/L [facility] AST 33 10 - 50 Units/L [facility] Blood 11/04/2024 4:14 AM CDT 11/04/2024 4:26 AM CDT Yovani Zeng NP LAB BLOOD ORDERABLES Final Re sult Performing Organization Address [facility] Co de Phone Number [place] [address] [place] [address] * (ABNORMAL) Basic metabolic panel (11/04/2024 4:14 AM CDT) Sodium 132(L) 135 - 145 mmol/L Potassium, pl 4.6 3.3 - 4.9 mmol/L [facility] Comment:Delta - Results Revi ewed Chloride 97 97 - 110 mmol/L [facility] CO2 26 22 - 32 mmol/L [facility] Anion gap 9 2 - 15 mmol/L [facility] BUN 10 6 - 25 mg/dL [facility] Creatinine 0.85 0.80 - 1.30 mg/dL [facility] Glucose 99 70 - 199 mg/dL [facility] Comment: Interpretive Data Fasting glucose >/= 126 [...] 2022. Calcium 9.2 8.5 - 10.3 mg/dL [facility] Blood 11/04/2024 4:14 AM CDT 11/04/2024 4:26 AM CDT Yovani Zeng LAB BLOOD ORDERABLES Final Re sult Performing Organization Address [facility] Co de Phone Number [address] [place] [address] * XR Chest 1 View (11/03/2024 12:45 PM CDT) Anatomical Region Laterality Modality Body, Chest N/A Computed Radiogr aphy 11/03/2024 12:5 6 PM CDT Narrative 11/03/2024 12:57 PM CDT EXAM DESCRIPTION: XR CHEST 1 VIEW REASON FOR STUDY: cough, H/o Latent Tb-completed treatement x 9 months. 5 day history of cough, non productive, suspected emphysema, assisted smoker Patient to ED yesterday after fall [...] signed by Rey MCCLAIN T: Report ID: [id number] Reading Location: [place] [address] Procedure Note Rey Irene MD - 11/03/2024 EXAM DESCRIPTION: XR CHEST 1 VIEW REASON FOR STUDY: cough, H/o Latent Tb-completed treatement x 9 months. 5day history of cough, non productive, suspected emphysema, assisted smoker Patient to ED yesterday after fall [...] Rey Irene M.D. NS T: Report ID: [id number] Reading Location: [place] [address] us Gwen Lau MD IMG XR PROCEDURES [...] NP LAB BLOOD ORDERABLES Final Re sult [facility] [address] [facility] Department [place] [address] * Differential, auto (11/03/2024 3:08 AM CDT) Pathologist [facility] Neutrophil abs 3.6 1.5 - 6.5 K/cumm Imm gran abs 0.0 0.0 - 0.1 K/cumm [facility] Lymphocyte abs 1.7 0.8 - 3.3 K/cumm [facility] Monocyte abs 0.7 0.2 - 0.8 K/cumm [facility] Eosinophil abs 0.1 0.0 - 0.5 K/cumm [facility] Basophil abs 0.0 0.0 - 0.1 K/cumm [facility] Neutrophil pct 59.4 % [facility] Comment: Interpretive Data Percent cell count reference ranges are not reported, since discordance with absolute values may lead to misinterpretation of CBC data. Current Interpretive Data was last revised on 2017. Imm gran pct 0.2 % [facility] Comment: Interpretive Data Percent cell count reference ranges are not reported, since discordance with absolute values may lead to misinterpretation of CBC data. Current Interpretive Data was last revised on 2017. Lymphocyte pct 27.4 % [facility] Comment: Interpretive Data Percent cell count reference ranges are not reported, since discordance with absolute values may lead to misinterpretation of CBC data. Current Interpretive Data was last revised on 2017. Monocyte pct 11.6 % [facility] Comment: Interpretive Data Percent cell count reference ranges are not reported, since discordance with absolute values may lead to misinterpretation of CBC data. Current Interpretive Data was last revised on 2017. Eosinophil pct 1.2 % [facility] Comment: Interpretive Data Percent cell count reference ranges are not reported, since discordance with absolute values may lead to misinterpretation of CBC data. Current Interpretive Data was last revised on 2017. Basophil pct 0.2 % [facility] Comment: Interpretive Data Percent cell count reference ranges are not reported, since discordance with absolute values may lead to misinterpretation of CBC data. Current Interpretive Data was last revised on 2017. Blood 11/03/2024 3:08 AM CDT 11/03/2024 3:29 AM CDT Yovani Zeng NP LAB BLOOD ORDERABLES Final Re sult Performing Organization Address [facility] Co de Phone Number [address] [place] [address] * (ABNORMAL) Iron profile w/ IBC (11/03/2024 3:08 AM CDT) [facility] Iron 101 50 - 150 mcg/dL TIBC 180(L) 250 - 400 mcg/dL [facility] Transferrin saturation 56(H) 20 - 50 % [facility] Blood 11/03/2024 3:08 AM CDT 11/03/2024 3:30 AM CDT Gwen Valeri Lau MD LAB BLOOD ORDERABLES Elena l Result Performing Organization Address [facility] Co de Phone Number [address] [address] * (ABNORMAL) CBC with auto differential (11/03/2024 3:08 AM CDT) [facility] WBC 6.1 3.8 - 9.9 K/cumm Hgb 11.6(L) 13.0 - 17.5 g/dL [facility] Hct 35.3(L) 38.9 - 50.3 % [facility] Plt 249 150 - 400 K/cumm [facility] MPV 9.2 9.1 - 12.3 fL [facility] RBC 4.51 4.30 - 5.80 M/cumm [facility] MCV 78.3(L) 81.3 - 96.4 fL [facility] MCH 25.7(L) 27.1 - 33.3 pg [facility] MCHC 32.9 32.3 - 35.7 g/dL [facility] RDW CV 15.9(H) 11.1 - 14.9 % [facility] RDW SD 44.7 35.7 - 48.1 fL [facility] NRBC abs 0.00 0.00 - 0.01 K/cumm [facility] Blood 11/03/2024 3:08 AM CDT 11/03/2024 3:29 AM CDT Yovani Zeng NP LAB BLOOD ORDERABLES Final Re sult [address] [employer] [place] [address] * Phosphorus (11/03/2024 3:08 AM CDT) Phosphorus, pl 4.3 2.3 - 4.5 mg/dL Blood 11/03/2024 3:08 AM CDT 11/03/2024 3:30 AM CDT Gwen Lau MD LAB BLOOD ORDERABLES Elena l Result Performing Organization Address City/[facility]/ZIP Co de Phone Number [address] [place] [address] * Magnesium (11/03/2024 3:08 AM CDT) Magnesium 1.9 1.4 - 2.5 mg/dL Blood 11/03/2024 3:08 AM CDT 11/03/2024 3:30 AM CDT Gwen Lau MD LAB BLOOD ORDERABLES Elena l Result Performing Organization Address City/[facility]/ZIP Co de Phone Number [address] [place] [address] * (ABNORMAL) Ferritin (11/03/2024 3:08 AM CDT) Ferritin 481(H) 30 - 400 ng/mL Blood 11/03/2024 3:08 AM CDT 11/03/2024 3:30 AM CDT Gwen Lau MD LAB BLOOD ORDERABLES Elena l Result Performing Organization Address City/[facility]/ZIP Co de Phone Number [address] [place] [address] * Vitamin B12 (11/03/2024 3:08 AM CDT) [facility] Vitamin B12 370 230 - 1,250 pg/mL Blood 11/03/2024 3:08 AM CDT 11/03/2024 3:30 AM CDT Gwen Valeri Lau MD LAB BLOOD ORDERABLES Elena l Result Performing Organization Address [facility] de Phone Number [address] [place] [address] * (ABNORMAL) Hepatic function panel (11/03/2024 3:08 AM CDT) [facility] Bilirubin, total 0.6 0.1 - 1.2 mg/dL Bilirubin, direct 0.3 0.1 - 0.3 mg/dL [facility] Protein, pl 6.3(L) 6.5 - 8.5 g/dL [facility] Albumin 3.2(L) 3.5 - 5.0 g/dL [facility] Alk phos 135(H) 40 - 130 Units/L [facility] ALT 21 7 - 55 Units/L [facility] AST 40 10 - 50 Units/L [facility] Blood 11/03/2024 3:08 AM CDT 11/03/2024 3:30 AM CDT Yovani Zeng NP LAB BLOOD ORDERABLES Final Re sult Performing Organization Address [facility] Co de Phone Number [address] [place] [address] * (ABNORMAL) Basic metabolic panel (11/03/2024 3:08 AM CDT) [facility] Sodium 134(L) 135 - 145 mmol/L Potassium, pl 3.1(L) 3.3 - 4.9 mmol/L [facility] Chloride 96(L) 97 - 110 mmol/L [facility] CO2 29 22 - 32 mmol/L [facility] Anion gap 9 2 - 15 mmol/L [facility] BUN 6 6 - 25 mg/dL [facility] Creatinine 1.04 0.80 - 1.30 mg/dL [facility] Glucose 110 70 - 199 mg/dL [facility] Comment: Interpretive Data Fasting glucose >/= 126 [...] 2022. Calcium 8.8 8.5 - 10.3 mg/dL [facility] Blood 11/03/2024 3:08 AM CDT 11/03/2024 3:30 AM CDT Yovani Zeng LAB BLOOD ORDERABLES Final Re sult [facility] [address] [facility] [place] [address] * Hepatitis C antibody Blood (11/02/2024 4:27 [...] OR DERABLES Final Result Performing Organization Address [facility]/ZIP Co de Phone Number [place] [address] [place] [address] * eGFR (11/02/2024 9:48 AM CDT) Pathologist [facility] [place] eGFR >90 >=60 mL/min/1. 73 m2 Comment: [...] ORDERABLES Final Re sult Performing Organization Address City/[facility] Co de Phone Number [place] [address] [place] [address] * Differential, auto (11/02/2024 9:48 AM CDT) Pathologist [facility] Neutrophil abs 4.6 1.5 - 6.5 K/cumm Imm gran abs 0.0 0.0 - 0.1 K/cumm [facility] Lymphocyte abs 1.4 0.8 - 3.3 K/cumm [facility] Monocyte abs 0.8 0.2 - 0.8 K/cumm [facility] Eosinophil abs 0.0 0.0 - 0.5 K/cumm [facility] Basophil abs 0.0 0.0 - 0.1 K/cumm [facility] Neutrophil pct 67.5 % [facility] Comment: Interpretive Data Percent cell count reference ranges are not reported, since discordance with absolute values may lead to misinterpretation of CBC data. Current Interpretive Data was last revised on 2017. Imm gran pct 0.4 % [facility] Comment: Interpretive Data Percent cell count reference ranges are not reported, since discordance with absolute values may lead to misinterpretation of CBC data. Current Interpretive Data was last revised on 2017. Lymphocyte pct 20.1 % [facility] Comment: Interpretive Data Percent cell count reference ranges are not reported, since discordance with absolute values may lead to misinterpretation of CBC data. Current Interpretive Data was last revised on 2017. Monocyte pct 11.5 % [facility] Comment: Interpretive Data Percent cell count reference ranges are not reported, since discordance with absolute values may lead to misinterpretation of CBC data. Current Interpretive Data was last revised on 2017. Eosinophil pct 0.4 % [facility] Comment: Interpretive Data Percent cell count reference ranges are not reported, since discordance with absolute values may lead to misinterpretation of CBC data. Current Interpretive Data was last revised on 2017. Basophil pct 0.1 % [facility] Comment: Interpretive Data Percent cell count reference ranges are not reported, since discordance with absolute values may lead to misinterpretation of CBC data. Current Interpretive Data was last revised on 2017. Blood 11/02/2024 9:48 AM CDT 11/02/2024 9:59 AM CDT us Yana SIMMONS LAB BLOOD ORDERABLES Final Re sult [facility] [address] [facility] Department [place] [address] * (ABNORMAL) CBC with auto differential (11/02/2024 9:48 AM CDT) WBC 6.9 3.8 - 9.9 K/cumm Hgb 12.0(L) 13.0 - 17.5 g/dL [facility] Hct 36.4(L) 38.9 - 50.3 % [facility] Plt 245 150 - 400 K/cumm [facility] MPV 8.9(L) 9.1 - 12.3 fL [facility] RBC 4.71 4.30 - 5.80 M/cumm [facility] MCV 77.3(L) 81.3 - 96.4 fL [facility] MCH 25.5(L) 27.1 - 33.3 pg [facility] MCHC 33.0 32.3 - 35.7 g/dL [facility] RDW CV 15.6(H) 11.1 - 14.9 % [facility] RDW SD 43.8 35.7 - 48.1 fL [facility] NRBC abs 0.00 0.00 - 0.01 K/cumm [facility] Blood 11/02/2024 9:48 AM CDT 11/02/2024 9:59 AM CDT Yana SIMMONS LAB BLOOD ORDERABLES Final Re sult Performing Organization Address [facility] Co de Phone Number [address] [employer] [place], [place] [id number] * Ethanol (11/02/2024 9:48 AM CDT) [facility] Ethanol <10 <=10 mg/dL Comment: Interpretive Data Legal limit of intoxication > or = 80 mg/dL Levels > or = 400 mg/dL are potentially TOXIC. Current interpretive data was last revised on 2018. Blood 11/02/2024 9:48 AM CDT 11/02/2024 9:59 AM CDT Yana SIMMONS LAB BLOOD ORDERABLES Final Re sult Performing Organization Address City/[facility]/ZIP Co de Phone Number [address] [place] [address] * (ABNORMAL) Comprehensive metabolic panel (11/02/2024 9:48 AM CDT) [facility] Sodium 137 135 - 145 mmol/L Potassium, pl 3.3 3.3 - 4.9 mmol/L [facility] Chloride 98 97 - 110 mmol/L [facility] CO2 30 22 - 32 mmol/L [facility] Anion gap 9 2 - 15 mmol/L [facility] BUN 4(L) 6 - 25 mg/dL [facility] Creatinine 0.82 0.80 - 1.30 mg/dL [facility] Glucose 90 70 - 199 mg/dL [facility] Comment: Interpretive Data Fasting glucose >/= 126 [...] 2022. Calcium 8.9 8.5 - 10.3 mg/dL [facility] Bilirubin, total 1.2 0.1 - 1.2 mg/dL [facility] Protein, pl 7.2 6.5 - 8.5 g/dL [facility] Albumin 3.7 3.5 - 5.0 g/dL [facility] Alk phos 148(H) 40 - 130 Units/L [facility] ALT 24 7 - 55 Units/L [facility] AST 67(H) 10 - 50 Units/L [facility] Blood 11/02/2024 9:48 AM CDT 11/02/2024 9:59 AM CDT us Yana SIMMONS LAB BLOOD ORDERABLES Final Re sult [facility] [address] [facility] Department [place] [address] * CT Lumbar Spine WO [...] by Noe Rob M.D. T: Report ID: [id number] Reading Location: [id number] Procedure Note Noe Rob Jr., MD - [...] by Noe Rob M.D. T: Report ID: [id number] Reading Location: [place] [address] PROCEDURES Final Resul [...] by Noe Rob M.D. T: Report ID: [id number] Reading Location: [place] [address] Procedure Note Noe Rob Jr., MD - 11/02/2024 EXAM DESCRIPTION: CT CERVICAL SPINE WO CONTRAST REASON FOR STUDY: Neck trauma, uncomplicated (NEXUS/CCR neg) ([id number]) from home by EMS. States he was [...] by Noe Rob M.D. T: Report ID: [id number] Reading Location: [id number] Yana SIMMONS IMG CT PROCEDURES Final Resul [...] by Noe Rob M.D. T: Report ID: [id number] Reading Location: [id number] Procedure Note Noe Rob Jr., MD - [...] by Noe Rob M.D. T: Report ID: [id number] Reading Location: [id number] Yana Peterson IRIS IMG CT PROCEDURES Final [...] by Noe Rob M.D. T: Report ID: [id number] Reading Location: [id number] Procedure Note Noe Rob Jr., MD - [...] by Noe Rob M.D. T: Report ID: [id number] Reading Location: [place] [address] Yana SIMMONS [facility] [place]ED[place] Final Resul t * (ABNORMAL) [...] tendency for uric acid stone formation. Source: [facility] [employer] Current Interpretive Data was last revised on 2017 Protein, ur ql 2+(A) Negative [place] Glucose, ur ql Negative Negative [facility] Ketones, ur Negative Negative [facility] Bilirubin, ur Negative Negative [facility] Blood, ur 3+(A) Negative [facility] Urobilinogen, ur <2.0 <2.0 mg/dL [facility] Nitrite, ur Positive(A) Negative [facility] Leukocyte esterase, ur 4+(A) Negative [facility] UA reflex comment Reflex to microscopic UA will be performed. [facility] Urine 01/04/2024 7:22 AM CDT 01/04/2024 7:30 AM CDT us Pedro Ochoa MD LAB MICROBIOLOGY - GENERAL ORDERABLES Final Result [facility] [address] [facility] Department [place] [address] * (ABNORMAL) Lipid panel (08/13/2023 5:23 AM ROTOR COIL TAPER) Cholesterol 159 30 - 199 mg/dL [facility] Comment: Interpretive Data Ages < or = [...] revised on 2018. Triglycerides 308(H) <=149 mg/dL [facility] Comment: Interpretive Data Ages < or = [...] 2 [place] Blood 08/13/2023 5:23 AM ROTOR COIL TAPER 08/13/2023 5:25 AM ROTOR COIL TAPER Scotty Gill MD LAB BLOOD ORDERABLES Final Result Performing Organization Address City/State/[facility] Co de Phone Number [place] [address] [place] [address] * RPR Blood (02/14/2023 5:08 AM CDT) [facility] RPR Nonreactive Nonreactive [place] Comment:Testing performed by : [facility], [address] [place]., [address] Blood 02/14/2023 5:08 AM CDT 02/14/2023 8:06 AM CDT Teresa Hernandez DO LAB MICROBIOLOGY - GENERAL ORDPeter BRASWELL Final Result Performing Organization Address [facility] Co de Phone Number [place] [address] [place] [address] * (ABNORMAL) TB test, quantiferon gold (08/31/2022 3:10 PM ROTOR COIL TAPER) [facility] Quantiferon TB Gold Positive( A) Negative [place] [...] 2.32 IUnits/mL [place] Comment: Test Performed by: [facility] [address] [place] [address] Dethistler Operator: Yung Henning M.D. Ph.D.; [facility]# [id number] Blood 08/31/2022 3:10 PM ROTOR COIL TAPER 08/31/2022 3:19 PM ROTOR COIL TAPER us Cody Medina MD LAB BLOOD ORDERABLES Final R esult Performing Organization Address City/[facility]/ZIP Co de Phone Number JESSICA[address] [address] * Hepatitis panel, acute (08/31/2022 9:01 AM ROTOR COIL TAPER) Hep A IgM Nonreactive Nonreactive [facility] Comment: Interpretive Data: If Hep A IgM Ab is reported as Equivocal, a new sample should be drawn in two weeks for testing. Current interpretive data was last revised on 19. Hep B core IgM Nonreactive Nonreactive [facility] Comment: Interpretive Data If HepB Core IgM Ab is reported as Equivocal, a new sample should be drawn in two weeks for testing. Current interpretive data was last revised on 19. Hep C Ab Nonreactive Nonreactive [facility] Comment: Interpretive Data Nonreactive: Antibodies to HCV [...] last revised on 2019. HepBsAg Nonreactive Nonreactive [facility] Blood 08/31/2022 9:01 AM ROTOR COIL TAPER 08/31/2022 9:33 AM ROTOR COIL TAPER us Scotty Gill MD LAB MICROBIOLOGY - GE NERAL ORDERABLES Final Result [address] [place] [place] [address] * Hemoglobin A1c (08/31/2022 9:01 AM ROTOR COIL TAPER) Hgb A1C 5.0 4.0 - 5.6 % [place] Estimated Average Glucose 97 mg/dL [place] Comment: The ADA recommends reporting an estimated Average Glucose (eAG) with all Hemoglobin A1c results using the equation derived from a study of 507 normal and diabetic adults. Minority populations were underrepresented and children were not included. (Diabetes Care 31:2866-1235, 2008). The eAG is not equivalent to a fasting glucose. 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
--- OUTSIDE RECORDS SUMMARY | 2024-11-18 10:03 | XMS_ITS | Clinical Summary ---
Author Organization [facility] Address [address] [place] [address] Care Team Providers Care Key Holder Name Role Phone Unavailable Primary Care Provider [...]
--- OUTSIDE RECORDS SUMMARY | 2024-11-18 10:03 | XMS_ITS | Clinical Summary ---
Author Organization [facility] Address [address] [place] [address] Care Team Providers Care Building Admin Name Role Phone Unavailable Primary Care Provider Unavailabl e Source Comments [facility],non-owned Affiliates and Associated Physician Practices is amultiple site organization consisting of ambulatory clinics and hospital sitesin [place], [place], [place] and [place]. This disclosure is being madepursuant to the Care Everywhere program and may not contain all information available regarding this patient. 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
--- OUTSIDE RECORDS SUMMARY | 2024-11-18 10:03 | XMS_ITS | CONTINUITY OF CARE DOCUMENT ---
Author Name yury cotton Address Unknown Organization [facility] Address [address] [place] [address] Phone [phone] Care Team Providers Care Watermaster Name Role Phone Tiffani Swan MD Unavailable [phone] KHADAR GUADALUPE MD Unavailable KHADAR GUADALUPE MD Unavailable INSURANCE PROVIDERS Payer name Policy type / Coverage type [place] red republican ID [employer] MEDICARE GOLD ADVANTAGE HMO Medicare [id number]
[2024-11-18] MEDS: MORPHINE SULFATE (*CRX) 2 MG/ML INJ IV PUSH (10:16)
[2024-11-18 11:59] VITALS: PULSE 80; RESP 18; O2SAT 98
[2024-11-18 13:00] LABS: Trichomonas Vag PCR NOT DETECTED (NOT DETECTE)
[2024-11-18 13:24] LABS: Chlamydia trachomatis NOT DETECTED (NOT DETECTE); Neisseria gonorrhoeae PCR NOT DETECTED (NOT DETECTE)
== END 2024-11-18 12:01 | disposition home or self-care (01) ==
PROVIDERS: Emergency Medicine; Emergency Provider Physician Assistant
DX: K59.00 Constipation, unspecified (principal); R10.9 Unspecified abdominal pain; Z11.3 Encounter for screening for infections with a predominantly sexual mode of transmission; J45.909 Unspecified asthma, uncomplicated; F32.A Depression, unspecified; F41.9 Anxiety disorder, unspecified; I10 Essential (primary) hypertension; E78.5 Hyperlipidemia, unspecified; B20 Human immunodeficiency virus [HIV] disease
CPT/HCPCS: 36415; 74176; 80053; 81001; 83690; 85025; 87086; 87491; 87591; 87661; 96374; 99284; J2270